=== PATIENT | female | born 1930 | race Caucasian/White ===

== ENCOUNTER 2016-06-16 12:26 | Inpatient (IN) | payer MEDICARE, BC ==
[2016-06-16] MEDS ORDERED: Sodium Chloride 0.9% 10 ML Syringe FLUSH PRN (12:54)
[2016-06-16] MEDS ORDERED: Sodium Chloride 0.9% 1,000 ML IV SCH (13:00)
--- NOTE | 2016-06-16 13:47 | CT ---
Head CT Technique: Multiple axial sections through the brain were obtained. Intravenous contrast was not utilized. Comparison: No previous intracranial imaging. Findings: Ventricles along with basal cisterns and sulci over convexities are moderately prominent. Diminished density noted within the periventricular white matter which is compatible with small vessel ischemic demyelination change. No other abnormal parenchymal densities are seen. No evidence of intracranial hemorrhage. No midline shift or mass effect is seen. Bone window settings were reviewed which shows the visualized sinuses to appear clear. No acute calvarial abnormality is seen. Impression: 1. Senescent change. Nothing acute is identified on noncontrast head CT study. Diagnostic code #1
--- NOTE | 2016-06-16 13:59 | EDM.PDOC ---
ED HPI DIZZINESS - General Chief Complaint: ENT Problem Stated Complaint: [facility] Time Seen by Provider: 06/16/16 12:38 Source of Information: Reports: Patient, EMS, Family Exam Limitations: Reports: No limitations - History of Present Illness INITIAL COMMENTS - FREE TEXT/NARRATIVE: The patient presents by [facility]. The patient's son came to her house this morning and found her still in bed at 10am. She normally is up and active at around 6am. She was a little dizzy and she told her son she just did not feel like getting up. EMS was called and they gave her some zofran. She felt much better by the time she arrived here. She had no complaints when she arrived. She had no fever, chills, cough, congestion, runny nose, chest pain, shortness of breath, abdominal pain, nausea, vomiting or dysuria. She was talking bout how she was helping her son with something this morning and that is not true. Her family is worried. She has dementia and it seems worse. She will try to cover her memory issues up by talking about something else. She is alert and oriented when she is here. Timing/Duration: Reports: Hour(s): Baseline Function: Reports: ambulatory Quality: Reports: vertigo Severity: mild Worsens With: Reports: activity Context, Dizziness: Denies: recent illness, recent infection, recent trauma, recent air travel, drug abuse, alcohol abuse, new medications Associated Symptoms: Denies: off balance Treatments PAVER: Reports: Other (see below) (zofran) - Related Data Allergies/ADRs: Allergies Allergy/AdvReac Type Severity Reaction Status Date / Time No Known Allergies Allergy Verified 06/16/16 12:41 Home Meds: Home Meds Levothyroxine [Synthroid] 75 mcg PO DAILY 02/18/15 [History] Lisinopril [Prinivil] 20 mg PO DAILY 02/18/15 [History] Multivitamin W/Iron, Minerals [Multivitamins with Iron] 1 tab PO DAILY 02/18/15 [History] Simvastatin [Zocor] 40 mg PO DAILY 02/18/15 [History] Past Medical History HEENT History: Reports: Hard of hearing, Impaired vision Other HEENT History: wears eyeglasses, has bilateral hearing aides Cardiovascular History: Reports: High cholesterol, Hypertension C[employer]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: Endocrine/Metabolic History: Reports: Hypothyroidism Hematologic History: Reports: Anemia - Infectious Disease History Infectious Disease History: Reports: Chicken pox Social & Family History - Tobacco Use Smoking Status *Q: Never Smoker Second Hand Smoke Exposure: No - Caffeine Use Caffeine Use: Reports: Coffee - Recreational Drug Use Recreational Drug Use: No ED ROS GENERAL - Review of Systems Review Of Systems: See Below Constitutional: Reports: no symptoms HEENT: Reports: Vertigo Respiratory: Reports: No Symptoms Cardiovascular: Reports: No symptoms Endocrine: Reports: no symptoms GI/Abdominal: Reports: Nausea (Earlier). Denies: Abdominal pain, Vomiting : Reports: no symptoms Musculoskeletal: Reports: no symptoms ED EXAM, DIZZINESS - Physical Exam Exam: See Below Exam Limited By: No limitations General Appearance: alert, no apparent distress Nystagmus: short duration Ears: normal external exam Nose: normal inspection Throat/Mouth: Normal inspection Head Exam: atraumatic, normocephalic Neck: normal inspection Respiratory/Chest: no respiratory distress, lungs clear, normal breath sounds Cardiovascular: regular rate, rhythm, no edema, no murmur GI/Abdominal: soft, non tender, no organomegaly Neurological: alert, no motor/sensory deficits, oriented x 3 Extremities: normal inspection Skin Exam: Warm, Dry EKG INTERPRETATION EKG Date: 06/16/16 Time: 12:54 Rhythm: NSR Rate (beats/min): 89 [place]: LAD-left axis deviation P-wave: present QRS: normal ST-T: normal QT: normal [place]/PQ Interval: 1st degree heart block EKG Interpretation Comments: Q waves in the anterior leads Course - Vital Signs Last Recorded V/S: Last Vital Signs Temp 97.6 F 06/16/16 12:33 Pulse 79 06/16/16 12:33 Resp 24 H 06/16/16 12:33 BP 161/101 H 06/16/16 12:33 Pulse Ox 96 06/16/16 12:33 Orthostatic Blood Pressure [ 182/123 Standing] Orthostatic Blood Pressure [ 165/108 Sitting] Orthostatic Blood Pressure [ 152/105 Supine] - Orders/Labs/Meds Orders: Active Orders 24 hr Category Date Time Status Patient Status [ADT] Routine ADT 06/16/16 14:54 Ordered Cardiac Monitoring [RC] . DIRECTED Care 06/16/16 12:54 Active EKG Documentation Completion [RC] STAT Care 06/16/16 12:55 Active Peripheral IV Care [RC] . DIRECTED Care 06/16/16 12:55 Active CULTURE URINE [RM] Stat Lab 06/16/16 14:31 Uncollected Sodium Chloride 0.9% [Normal Saline] 1,000 ml Med 06/16/16 13:00 Active IV .BOLUS Sodium Chloride 0.9% [Saline Flush] Med 06/16/16 12:54 Active 10 ml FLUSH ASDIRECTED PRN Peripheral IV Insertion Adult [OM.PC] Stat Oth 06/16/16 12:54 Ordered Medication Orders Sodium Chloride (Normal Saline) 1,000 mls @ 1,000 mls/hr IV .BOLUS [place] Last Admin: 06/16/16 13:14 Dose: 1,000 mls/hr Sodium Chloride (Saline Flush) 10 ml FLUSH ASDIRECTED PRN PRN Reason: Keep Vein Open Last Admin: 06/16/16 14:12 Dose: 10 ml Labs: Laboratory Tests 06/16/16 06/16/16 06/16/16 Range/Units 13:18 13:18 13:35 WBC 5.50 (3.98-10.04) K/mm3 RBC 4.79 (3.98-5.22) M/mm3 Hgb 15.5 (11.2-15.7) gm/L Hct 44.2 (34.1-44.9) % MCV 92.3 (79.4-94.8) fl MCH 32.4 H (25.6-32.2) pg MCHC 35.1 (32.2-35.5) g/dl RDW Std Deviation 43.0 (36.4-46.3) fL Plt Count 187 (182-369) K/mm3 MPV 9.7 (9.4-12.3) fl Neut % (Auto) 77.8 H (34.0-71.1) % Lymph % (Auto) 15.5 L (19.3-51.7) % [place] % (Auto) 6.2 (4.7-12.5) % Eos % (Auto) 0 L (0.7-5.8) Baso % (Auto) 0.5 (0.1-1.2) % Neut # (Auto) 4.28 (1.56-6.13) K/mm3 Lymph # (Auto) 0.85 L (1.18-3.74) K/mm3 [place] # (Auto) 0.34 (0.24-0.36) K/mm3 Eos # (Auto) 0.00 L (0.04-0.36) K/mm3 Baso # (Auto) 0.03 (0.01-0.08) K/mm3 Sodium 139 (136-145) mEq/L Potassium 3.6 (3.5-5.1) mEq/L Chloride 105 (98-107) mEq/L Carbon Dioxide 27 (21-32) mEq/L Anion Gap 10.6 (5-15) BUN 10 (7-18) mg/dL Creatinine 0.8 (0.55-1.02) mg/dL Est Cr Clr Drug Dosing 44.40 mL/min Estimated GFR (MDRD) > 60 (>60) mL/min BUN/Creatinine Ratio 12.5 L (14-18) Glucose 140 H (83-115) mg/dL Calcium 9.1 (8.5-10.1) mg/dL Total Bilirubin 0.8 (0.2-1.0) mg/dL AST 23 (15-37) U/L ALT 23 (14-59) U/L Alkaline Phosphatase 74 (46-116) U/L Troponin I 0.069 H* (0.00-0.056) ng/mL Total Protein 6.9 (6.4-8.2) g/dl Albumin 3.6 (3.4-5.0) g/dl Globulin 3.3 gm/dL Albumin/Globulin Ratio 1.1 (1-2) Urine Color Yellow (Yellow) Urine Appearance Clear (Clear) Urine pH 7.5 (5.0-8.0) Ur Specific [place] 1.020 (1.005-1.030) Urine Protein Negative (Negative) Urine Glucose (UA) Negative (Negative) Urine Ketones 1+ H (Negative) Urine Occult Blood Negative (Negative) Urine Nitrite Negative (Negative) Urine Bilirubin Negative (Negative) Urine Urobilinogen 0.2 (0.2-1.0) Ur Leukocyte Esterase Trace H (Negative) Urine RBC 0-5 (0-5) /hpf Urine WBC 0-5 (0-5) /hpf Ur Epithelial Cells Not Reportable Ur Squamous Epith Cells 0-5 (0-5) /hpf Urine Bacteria Many H (FEW) /hpf Urine Mucus Not seen (FEW) /hpf Meds: Medications Generic Name Dose Route Start Last Admin Trade Name Nathan PRN Reason Stop Dose Admin Sodium Chloride 1,000 mls @ 1,000 mls/hr 06/16/16 13:00 06/16/16 13:14 Normal Saline IV 1,000 mls/hr .BOLUS [place] Administration Sodium Chloride 10 ml 06/16/16 12:54 06/16/16 14:12 Saline Flush FLUSH 10 ml ASDIRECTED PRN Administration Keep Vein Open Discontinued Medications Generic Name Dose Route Start Last Admin Trade Name Nathan PRN Reason Stop Dose Admin Aspirin 324 mg 06/16/16 14:08 06/16/16 14:13 Aspirin PO 06/16/16 14:09 324 mg ONETIME ONE Administration - Re-Assessments/Exams Free Text/Narrative Re-Assessment/Exam: 06/16/16 14:04 I ordered an IV NS 1L bolus, EKG, CT of her head, labs and UA. Her CBC was negative. Her glucose was elevated at 140. Her EKG shows a 1st degree heart block with some Q waves in the anterior leads. Her troponin was elevated at 0.069. 06/16/16 14:56 Her UA has some leukocyte esterase and some bacteria but no WBCs and no nitrites. I will culture it. Her Systolic BP went up from 152 to 182 when she stood up and she was very dizzy and nearly fell over. I am concerned about her confusion, elevated troponin and vertigo. I feel she needs to be admitted. I called Dr Weinberg and he agreed to the admission. Departure - Departure Time of Disposition: 15:00 Disposition: Home, Self-Care 01 Condition: good Clinical Impression: Vertigo, Confusion, Elevated troponin Forms: ED Department Discharge - My Orders Last 24 Hours: My Active Orders 06/16/16 12:54 Cardiac Monitoring [RC] . DIRECTED Sodium Chloride 0.9% [Saline Flush] 10 ml FLUSH ASDIRECTED PRN Peripheral IV Insertion Adult [OM.PC] Stat 06/16/16 12:55 EKG Documentation Completion [RC] STAT Peripheral IV Care [RC] . DIRECTED 06/16/16 13:00 Sodium Chloride 0.9% [Normal Saline] 1,000 ml IV .BOLUS 06/16/16 14:31 CULTURE URINE [RM] Stat 06/16/16 14:54 Patient Status [ADT] Routine - Assessment/Plan Last 24 Hours: My Active Orders 06/16/16 12:54 Cardiac Monitoring [RC] . DIRECTED Sodium Chloride 0.9% [Saline Flush] 10 ml FLUSH ASDIRECTED PRN Peripheral IV Insertion Adult [OM.PC] Stat 06/16/16 12:55 EKG Documentation Completion [RC] STAT Peripheral IV Care [RC] . DIRECTED 06/16/16 13:00 Sodium Chloride 0.9% [Normal Saline] 1,000 ml IV .BOLUS 06/16/16 14:31 CULTURE URINE [RM] Stat 06/16/16 14:54 Patient Status [ADT] Routine
[2016-06-16] MEDS ORDERED: Aspirin 81 MG Tab.Chew PO ONE (14:08)
--- NOTE | 2016-06-16 14:52 | PCM.HP ---
H&P History of Present Illness - General Date of Service: 06/16/16 - History of Present Illness Initial Comments - Free Text/Narative: This is a pleasant 86 year old female who lives independently, has a history of hypertension, hyperlipidemia, hypothryoidism, and vertigo, who was brought to the hospital for acute onset of dizziness this am. Pt reports it was vertiginous and occured around 7 am. She fell back asleep until 10 - 11am. She did not recall all of the events such as how long she slept; history was supplemented by family at bedside. PT denies any chest pain, pressure, SOB, or palpitations. She did have nausea and dry heaving with this. In the ER, she was found to be in hypertensive urgency with positive troponins. We were asked to evaluate her for admission. - Related Data Allergies/Adverse Reactions: Allergies Allergy/AdvReac Type Severity Reaction Status Date / Time No Known Allergies Allergy Verified 06/16/16 12:41 Home Medications: Home Meds Levothyroxine [Synthroid] 75 mcg PO DAILY 02/18/15 [History] Lisinopril [Prinivil] 20 mg PO DAILY 02/18/15 [History] Multivitamin W/Iron, Minerals [Multivitamins with Iron] 1 tab PO DAILY 02/18/15 [History] Simvastatin [Zocor] 40 mg PO DAILY 02/18/15 [History] Past Medical History HEENT History: Reports: Hard of hearing, Impaired vision Other HEENT History: wears eyeglasses, has bilateral hearing aides Cardiovascular History: Reports: High cholesterol, Hypertension [employer]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: Endocrine/Metabolic History: Reports: Hypothyroidism Hematologic History: Reports: Anemia - Infectious Disease History Infectious Disease History: Reports: Chicken pox Social & Family History - Family History Endocrine/Metabolic: Reports: Diabetes, type II (mothers side of family) - Tobacco Use Smoking Status *Q: Never Smoker Second Hand Smoke Exposure: No - Caffeine Use Caffeine Use: Reports: Coffee - Recreational Drug Use Recreational Drug Use: No - Living Situation & Occupation Living situation: Reports: other (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 Denies: headaches Pulmonary: Denies: Shortness of Breath, Wheezing, Cough Cardiovascular: Denies: chest pain, palpitations, orthopnea Gastrointestinal: Denies: Abdominal pain, Diarrhea, Hematochezia, Melena, Nausea , Vomiting Genitourinary: Denies: dysuria, frequency, burning Musculoskeletal: Denies: joint pain, muscle pain Skin: Denies: rash, lesions, lumps Psychiatric: Reports: confusion. Denies: depression, anxiety Neurological: Reports: Confusion, Dizziness. Denies: Headache, Numbness, Tingling, Weakness Hematologic/Lymphatic: Denies: easy bleeding, easy bruising Exam - Exam Exam: See Below - Vital Signs Vital Signs: Last Vital Signs Temp 36.4 C 06/16/16 12:33 Pulse 79 06/16/16 12:33 Resp 24 H 06/16/16 12:33 BP 161/101 H 06/16/16 12:33 Pulse Ox 96 06/16/16 12:33 Orthostatic Blood Pressure [ 182/123 Standing] Orthostatic Blood Pressure [ 165/108 Sitting] Orthostatic Blood Pressure [ 152/105 Supine] Weight: 56.245 kg - Exam Physical Exam Comments:: Vitals: as above General: alert and oriented. NAD, until genaro maneuver performed. Pt was subsequently in intractable nausea. Psych: calm and cooperative HEENT: normocephalic, atraumatic. EOMI Cardiac: Normal S1, S2. regular rate. No murmurs rubs, or gallops. No JVD noted. Lungs: CTAB. good air entry bilaterally. Abd: Soft, NT/ND. No HSM noted. Skin: no new visible rashes or purpura noted Neuro: CN 2-12 intact. Strength intact and adequate bilaterally. Cognition and speech are normal. - Patient Data Lab Results last 24 hrs: Laboratory Results - last 24 hr 06/16/16 06/16/16 06/16/16 Range/Units 13:18 13:18 13:35 WBC 5.50 (3.98-10.04) K/mm3 RBC 4.79 (3.98-5.22) M/mm3 Hgb 15.5 (11.2-15.7) gm/L Hct 44.2 (34.1-44.9) % MCV 92.3 (79.4-94.8) fl MCH 32.4 H (25.6-32.2) pg MCHC 35.1 (32.2-35.5) g/dl RDW Std Deviation 43.0 (36.4-46.3) fL Plt Count 187 (182-369) K/mm3 MPV 9.7 (9.4-12.3) fl Neut % (Auto) 77.8 H (34.0-71.1) % Lymph % (Auto) 15.5 L (19.3-51.7) % [place] % (Auto) 6.2 (4.7-12.5) % Eos % (Auto) 0 L (0.7-5.8) Baso % (Auto) 0.5 (0.1-1.2) % Neut # (Auto) 4.28 (1.56-6.13) K/mm3 Lymph # (Auto) 0.85 L (1.18-3.74) K/mm3 [place] # (Auto) 0.34 (0.24-0.36) K/mm3 Eos # (Auto) 0.00 L (0.04-0.36) K/mm3 Baso # (Auto) 0.03 (0.01-0.08) K/mm3 Sodium 139 (136-145) mEq/L Potassium 3.6 (3.5-5.1) mEq/L Chloride 105 (98-107) mEq/L Carbon Dioxide 27 (21-32) mEq/L Anion Gap 10.6 (5-15) BUN 10 (7-18) mg/dL Creatinine 0.8 (0.55-1.02) mg/dL Est Cr Clr Drug Dosing 44.40 mL/min Estimated GFR (MDRD) > 60 (>60) mL/min BUN/Creatinine Ratio 12.5 L (14-18) Glucose 140 H (83-115) mg/dL Calcium 9.1 (8.5-10.1) mg/dL Total Bilirubin 0.8 (0.2-1.0) mg/dL AST 23 (15-37) U/L ALT 23 (14-59) U/L Alkaline Phosphatase 74 (46-116) U/L Troponin I 0.069 H* (0.00-0.056) ng/mL Total Protein 6.9 (6.4-8.2) g/dl Albumin 3.6 (3.4-5.0) g/dl Globulin 3.3 gm/dL Albumin/Globulin Ratio 1.1 (1-2) Urine Color Yellow (Yellow) Urine Appearance Clear (Clear) Urine pH 7.5 (5.0-8.0) Ur Specific [place] 1.020 (1.005-1.030) Urine Protein Negative (Negative) Urine Glucose (UA) Negative (Negative) Urine Ketones 1+ H (Negative) Urine Occult Blood Negative (Negative) Urine Nitrite Negative (Negative) Urine Bilirubin Negative (Negative) Urine Urobilinogen 0.2 (0.2-1.0) Ur Leukocyte Esterase Trace H (Negative) Urine RBC 0-5 (0-5) /hpf Urine WBC 0-5 (0-5) /hpf Ur Epithelial Cells Not Reportable Ur Squamous Epith Cells 0-5 (0-5) /hpf Urine Bacteria Many H (FEW) /hpf Urine Mucus Not seen (FEW) /hpf Result Diagrams: 06/16/16 13:18 06/16/16 13:18 Imaging Impressions last 24 hrs: CT head without any acute intracranial abnormalities noted. EKG INTERPRETATION Rhythm: NSR EKG Interpretation Comments: possible old septal infarct with q waves. *Q Meaningful Use (ADM) - VTE *Q VTE Criteria *Q: - Stroke *Q Stroke Criteria *Q: - AMI *Q AMI Criteria *Q: - Problem List (1) Hypertensive urgency SNOMED Code(s): 023078444 ICD Code: I16.0 - HYPERTENSIVE URGENCY Status: Acute Current Visit: Yes (2) Elevated troponin SNOMED Code(s): 324789364, 186141452 ICD Code: R74.8 - ABNORMAL LEVELS OF OTHER SERUM ENZYMES Status: Acute Current Visit: Yes (3) Vertigo SNOMED Code(s): 500691370 ICD Code: R42 - DIZZINESS AND GIDDINESS Status: Acute Current Visit: Yes Problem List Initiated/Reviewed/Updated: Yes Orders Last 24hrs: Active Orders 24 hr Category Date Time Status Cardiac Monitoring [RC] . DIRECTED Care 06/16/16 12:54 Active EKG Documentation Completion [RC] STAT Care 06/16/16 12:55 Active Peripheral IV Care [RC] . DIRECTED Care 06/16/16 12:55 Active CULTURE URINE [RM] Stat Lab 06/16/16 14:31 Uncollected Sodium Chloride 0.9% [Normal Saline] 1,000 ml Med 06/16/16 13:00 Active IV .BOLUS Sodium Chloride 0.9% [Saline Flush] Med 06/16/16 12:54 Active 10 ml FLUSH ASDIRECTED PRN Peripheral IV Insertion Adult [OM.PC] Stat Oth 06/16/16 12:54 Ordered Medication Orders Sodium Chloride (Normal Saline) 1,000 mls @ 1,000 mls/hr IV .BOLUS [place] Last Admin: 06/16/16 13:14 Dose: 1,000 mls/hr Sodium Chloride (Saline Flush) 10 ml FLUSH ASDIRECTED PRN PRN Reason: Keep Vein Open Last Admin: 06/16/16 14:12 Dose: 10 ml Assessment/Plan Comment:: Acute vertigo. neuro history and exam without any focal deficits. Genaro maneuver exacerbated symptoms with triggering of horizontal nystagmus with positioning. This is BPPV. Will start meclizine PRN, Ativan PRN, Zofran for nausea PRN. Consult PT. Elevated troponins. Denies chest pain. Likely demand ischemia from HTN urgency. HTN urgency due to acute intractable nausea and vertigo. Will treat vertigo as mentioned above and consider hydrlazine PRN for SBP>180. Cont MICHAEL. Chronic medical conditions: HLD - cont statin Hypothyroidism - cont levothyroxine Pt is DNR. DVT prophylaxis with subcutaneous lovenox.
[2016-06-16] MEDS ORDERED: LORazepam 2 MG/ML MDV IVPUSH ONE (15:10)
[2016-06-16] MEDS ORDERED: LORazepam 2 MG/ML MDV ONE (15:14)
[2016-06-16] MEDS ORDERED: Ondansetron 4 MG/2 ML SDV ONE (15:14)
[2016-06-16] MEDS ORDERED: Ondansetron 4 MG/2 ML SDV IVPUSH PRN (15:28)
[2016-06-16] MEDS ORDERED: hydrALAZINE 10 MG Tab PO PRN (15:44)
[2016-06-16] MEDS ORDERED: Acetaminophen 325 MG Tab PO PRN (15:44)
[2016-06-16] MEDS ORDERED: Bisacodyl 5 MG Tab PO PRN (15:44)
[2016-06-16] MEDS ORDERED: LORazepam 2 MG/ML MDV IVPUSH PRN (15:59)
[2016-06-16] MEDS ORDERED: Meclizine 12.5 MG Tab PO PRN (15:59)
[2016-06-16] MEDS: Lisinopril 20 MG Tab PO SCH (16:22)
[2016-06-17] MEDS ORDERED: Levothyroxine 75 MCG Tab PO SCH (06:00)
[2016-06-17] MEDS ORDERED: Multivitamins,Therapeutic Tab PO SCH (09:00)
[2016-06-17] MEDS ORDERED: Enoxaparin 30 MG/0.3 ML Syringe SUBCUT SCH (09:00)
[2016-06-17] MEDS ORDERED: Simvastatin 40 MG Tab PO SCH (09:00)
[2016-06-17] MEDS ORDERED: Enoxaparin 40 MG/0.4 ML Syringe SUBCUT SCH (09:00)
[2016-06-17] MEDS: Lisinopril 20 MG Tab PO SCH (09:31)
--- NOTE | 2016-06-17 10:22 | PCM.DCSUM1 ---
Discharge Summary - Hospital Course Free Text/Narrative:: This is a pleasant 86 year old female who lives independently, has a history of hypertension, hyperlipidemia, hypothryoidism, and vertigo, who was brought to the hospital for acute onset of dizziness this am. Pt reports it was vertiginous and occured around 7 am. She fell back asleep until 10 - 11am. She did not recall all of the events such as how long she slept; history was supplemented by family at bedside. PT denies any chest pain, pressure, SOB, or palpitations. She did have nausea and dry heaving with this. In the ER, she was found to be in hypertensive urgency with positive troponins. We were asked to evaluate her for admission. Acute vertigo. neuro history and exam without any focal deficits. Betzy maneuver exacerbated symptoms with triggering of horizontal nystagmus with positioning. This is BPPV. Evaluated by PT. Vertigo resolved and Pt able to ambulate today. Discharge with PRN meclizine and Zofran. Elevated troponins. Denied chest pain. This is probable demand ischemia from HTN urgency. HTN urgency due to acute intractable nausea and vertigo, resolved. Cont MICHAEL. - Discharge Data Discharge Date: 06/17/16 Discharge Disposition: Home, Self-Care 01 Condition: Good - Discharge Diagnosis/Problem(s) (1) Vertigo SNOMED Code(s): 243780624 ICD Code: R42 - DIZZINESS AND GIDDINESS Status: Acute Current Visit: Yes (2) Hypertensive urgency SNOMED Code(s): 952144248 ICD Code: I16.0 - HYPERTENSIVE URGENCY Status: Acute Current Visit: Yes (3) Elevated troponin SNOMED Code(s): 271136577, 484833619 ICD Code: R74.8 - ABNORMAL LEVELS OF OTHER SERUM ENZYMES Status: Acute Current Visit: Yes - Patient Summary/Data Consults: Consultations 06/16/16 15:43 OT Evaluation and Treatment [CONS] Routine 06/16/16 15:44 PT Evaluation and Treatment [CONS] Routine Recommended Follow-up Testing/Procedures: Routine follow up in 3-5 days. - Patient Instructions Diet: Usual Diet as Tolerated Activity: As Tolerated Notify Provider of: Fever, Increased Pain, Swelling and Redness, Nausea and/or Vomiting - Discharge Plan Prescriptions/Med Rec: Meclizine [Antivert] 12.5 mg PO Q6H PRN #30 tablet PRN Reason: Dizziness Ondansetron [Zofran] 4 mg IVPUSH Q6H PRN #30 vial PRN Reason: Nausea Home Medications: Home Meds Levothyroxine [Synthroid] 75 mcg PO DAILY 02/18/15 [History] Lisinopril [Prinivil] 20 mg PO DAILY 02/18/15 [History] Simvastatin [Zocor] 40 mg PO DAILY 02/18/15 [History] Meclizine [Antivert] 12.5 mg PO Q6H PRN #30 tablet 06/17/16 [Rx] Ondansetron [Zofran] 4 mg IVPUSH Q6H PRN #30 vial 06/17/16 [Rx] Forms: ED Department Discharge Referrals: Chanel Fletcher MD [Primary Care Provider] - - Patient Data Vitals - Most Recent: Last Vital Signs Temp 36.6 C 06/17/16 09:26 Pulse 83 06/17/16 09:26 Resp 16 06/17/16 09:26 BP 135/87 06/17/16 09:31 Pulse Ox 96 06/17/16 09:26 Weight - Most Recent: 55.837 kg I&O - Last 24 hours: Intake & Output 06/16/16 06/17/16 06/17/16 22:59 06:59 14:59 Intake Total 210 100 Output Total 300 Balance 210 -200 Med Orders - Current: Current Medications Acetaminophen (Tylenol) 650 mg PO Q4H PRN PRN Reason: Pain (Mild 1-3)/fever Bisacodyl (Dulcolax) 5 mg PO DAILY PRN PRN Reason: Constipation Enoxaparin Sodium (Lovenox) 40 mg SUBCUT DAILY [facility] Last Admin: 06/17/16 09:29 Dose: 40 mg Hydralazine HCl (Apresoline) 10 mg PO Q6H PRN PRN Reason: systolic BP>180 or diast>100 Levothyroxine Sodium (Levothyroxine) 75 mcg PO ACBREAKFAST [facility] Last Admin: 06/17/16 06:00 Dose: 75 mcg Lisinopril (Prinivil) 20 mg PO DAILY [facility] Last Admin: 06/17/16 09:31 Dose: 20 mg Lorazepam (Ativan) 1 mg IVPUSH Q6H PRN PRN Reason: Dizziness Meclizine HCl (Antivert) 12.5 mg PO Q6H PRN PRN Reason: Dizziness Multivitamins (Thera) 1 each PO DAILY [facility] Last Admin: 06/17/16 09:31 Dose: 1 each Ondansetron HCl (Zofran) 4 mg IVPUSH Q6H PRN PRN Reason: Nausea Last Admin: 06/16/16 15:34 Dose: 4 mg Simvastatin (Zocor) 40 mg PO DAILY [facility] Last Admin: 06/17/16 09:31 Dose: 40 mg Sodium Chloride (Saline Flush) 10 ml FLUSH ASDIRECTED PRN PRN Reason: Keep Vein Open Last Admin: 06/16/16 14:12 Dose: 10 ml Discontinued Medications Aspirin (Aspirin) 324 mg PO ONETIME ONE Stop: 06/16/16 14:09 Last Admin: 06/16/16 14:13 Dose: 324 mg Enoxaparin Sodium (Lovenox) 30 mg SUBCUT DAILY [facility] Sodium Chloride (Normal Saline) 1,000 mls @ 1,000 mls/hr IV .BOLUS [facility] Last Admin: 06/16/16 13:14 Dose: 1,000 mls/hr Lorazepam (Ativan) Confirm Administered Dose 2 mg .ROUTE .STK-MED ONE Stop: 06/16/16 15:15 Last Admin: 06/16/16 15:36 Dose: Not Given Lorazepam (Ativan) 1 mg IVPUSH ONETIME ONE Stop: 06/16/16 15:11 Last Admin: 06/16/16 15:18 Dose: 1 mg Ondansetron HCl (Zofran) Confirm Administered Dose 4 mg .ROUTE .STK-MED ONE Stop: 06/16/16 15:15 Last Admin: 06/16/16 15:35 Dose: Not Given - Exam General: Reports: alert, oriented HEENT: Reports: EOMI Neck: Reports: supple Lungs: Reports: Clear to auscultation Cardiovascular: Reports: Regular Rate, Regular Rhythm *Q Meaningful Use (DIS) - VTE *Q VTE Criteria *Q: - Stroke *Q Stroke Criteria *Q: - AMI *Q AMI Criteria *Q:
[2016-06-17 17:49] VITALS: BP 128/96
== END 2016-06-17 16:17 | disposition home or self-care (01) | DRG 305 ==
LOC: JD.ED 12:26 → JD.MS 14:54
PROVIDERS: ADMIT Internal Medicine; ATTEND Internal Medicine
DX: R42 Dizziness and giddiness (principal); I16.0 Hypertensive urgency; R41.0 Disorientation, unspecified; H81.10 Benign paroxysmal vertigo, unspecified ear; E78.00 Pure hypercholesterolemia, unspecified; R74.8 Abnormal levels of other serum enzymes; F03.90 Unspecified dementia, unspecified severity, without behavioral disturbance, psychotic disturbance, mood disturbance, and anxiety; E78.5 Hyperlipidemia, unspecified; I10 Essential (primary) hypertension; E03.9 Hypothyroidism, unspecified; D64.9 Anemia, unspecified; H91.93 Unspecified hearing loss, bilateral; Z79.899 Other long term (current) drug therapy; Z66 Do not resuscitate
CPT/HCPCS: 36415; 70450; 80053; 81001; 84484; 85025; 87086; 87184; 93005; 96361; 99285; A9270; J7040; J7050; 87088; 94761; 96125-GN; 96360; 96374; 96375; 97116-GP; 97161-GP; 97165-GO; 97535-GO; J1650; J2060; J2405

== ENCOUNTER 2016-11-12 13:23 | Emergency (ER) | payer MEDICARE, BC ==
[2016-11-12 13:49] VITALS: BP 167/105
[2016-11-12] MEDS ORDERED: Sulfamethoxazole/Trimethoprim 800-160 MG Tab PO ONE (15:41)
--- NOTE | 2016-11-12 15:42 | EDM.PDOC ---
ED HPI GENERAL MEDICAL PROBLEM - General Chief Complaint: Abdominal Pain Stated Complaint: ABDOMINAL PAIN Time Seen by Provider: 11/12/16 13:40 Source of Information: Reports: Patient, Family (Daughter), RN Notes Reviewed History Limitations: Reports: Other (Dementia) - History of Present Illness INITIAL COMMENTS - FREE TEXT/NARRATIVE: The patient states that she has had crampy right lower quadrant abdominal pain on and off for weeks. She gets relief if she pushes on the area. She has not identified any other modifiers. No recent nausea, vomiting, constipation, diarrhea, or urinary symptoms. No recent fever. The patient states that she has not had a previous evaluation of this. The patient's PCP is Dr. Fletcher. - Related Data Allergies Allergy/AdvReac Type Severity Reaction Status Date / Time No Known Allergies Allergy Verified 11/12/16 13:49 Home Meds: Home Meds Levothyroxine [Synthroid] 75 mcg PO DAILY 02/18/15 [History] Lisinopril [Prinivil] 20 mg PO DAILY 02/18/15 [History] Simvastatin [Zocor] 40 mg PO DAILY 02/18/15 [History] Sulfamethoxazole/Trimethoprim [Bactrim Ds Tablet] 1 tab PO Q12H #6 tablet [Rx] Past Medical History HEENT History: Reports: Hard of Hearing, Impaired Vision Other HEENT History: wears eyeglasses, has bilateral hearing aides Cardiovascular History: Reports: High Cholesterol, Hypertension Gastrointestinal History: Reports: Hemorrhoids 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: Neurological History: Reports: Alzheimers Disease Endocrine/Metabolic History: Reports: Hypothyroidism Hematologic History: Reports: Anemia - Infectious Disease History Infectious Disease History: Reports: Chicken Pox - Past Surgical History HEENT Surgical History: Reports: Cataract Surgery GI Surgical History: Reports: Other (See Below) (Hemorrhoidectomy) Social & Family History - Family History Family Medical History: Noncontributory Endocrine/Metabolic: Reports: Diabetes, type II - Tobacco Use Smoking Status *Q: Never Smoker Second Hand Smoke Exposure: No - Caffeine Use Caffeine Use: Reports: Coffee Other Caffeine Use: pot a day - Alcohol Use Alcohol Use History: No - Recreational Drug Use Recreational Drug Use: No - Living Situation & Occupation Living situation: Reports: , Alone Occupation: Retired ED ROS GENERAL - Review of Systems Review Of Systems: See Below Constitutional: Reports: No Symptoms HEENT: Reports: No Symptoms Respiratory: Reports: No Symptoms Cardiovascular: Reports: No Symptoms Endocrine: Reports: No Symptoms GI/Abdominal: Reports: Abdominal Pain (RLQ, as per the HPI) : Reports: No Symptoms Musculoskeletal: Reports: No Symptoms Skin: Reports: No Symptoms Neurological: Reports: No Symptoms Psychiatric: Reports: No Symptoms Hematologic/Lymphatic: Reports: No Symptoms Immunologic: Reports: No Symptoms ED EXAM, RENAL/ - Physical Exam Exam: See Below Exam Limited By: No Limitations General Appearance: Alert, WD/WN, No Apparent Distress Eye Exam: Bilateral Eye: Normal Inspection Ears: Normal External Exam, Hearing Grossly Normal Nose: Normal Inspection, No Blood Throat/Mouth: Normal Inspection, Normal Lips, Normal Voice, No Airway Compromise Head: Atraumatic, Normocephalic Neck: Normal Inspection, Full Range of Motion Respiratory/Chest: No Respiratory Distress, Lungs Clear, Normal Breath Sounds, No Accessory Muscle Use Cardiovascular: Normal Peripheral Pulses, Regular Rate, Rhythm, No Gallop, No JVD, No Murmur, No Rub GI/Abdominal: Normal Bowel Sounds, Soft, Non-Tender (even to the RLQ), No Organomegaly, No Distention, No Abnormal Bruit, No Mass (Female) Exam: Deferred Rectal (Female) Exam: Deferred Back Exam: Normal Inspection, Full Range of Motion, NT Extremities: Normal Inspection, Normal Range of Motion, No Pedal Edema, Normal Capillary Refill Neurological: Alert, No Motor/Sensory Deficits Psychiatric: Normal Affect Skin Exam: Warm, Dry, Intact, Normal Color, No Rash Lymphatic: No Adenopathy Course - Vital Signs Last Recorded V/S: Last Vital Signs Temp 36.3 C 11/12/16 13:40 Pulse 70 11/12/16 13:40 Resp 18 11/12/16 13:40 BP 167/105 H 11/12/16 13:40 Pulse Ox 99 11/12/16 13:40 - Orders/Labs/Meds Labs: Laboratory Tests 11/12/16 11/12/16 Range/Units 14:18 15:00 Urine Color Cancelled Yellow Urine Appearance Cancelled Clear Urine pH Cancelled 7.0 Ur Specific [place] Cancelled 1.020 Urine Protein Cancelled Negative Urine Glucose (UA) Cancelled Negative Urine Ketones Cancelled 1+ H Urine Occult Blood Cancelled Trace-intact H Urine Nitrite Cancelled Negative Urine Bilirubin Cancelled Negative Urine Urobilinogen Cancelled 0.2 Ur Leukocyte Esterase Cancelled Trace H Urine RBC Cancelled 5-10 H Urine WBC Cancelled 0-5 Urine WBC Clumps Cancelled Not seen Ur Epithelial Cells Cancelled 0-5 Ur Squamous Epith Cells Cancelled Ur Transition Epith Cell Cancelled Ur Renal Epithelial Cell Cancelled [place] Biurate Crystals Cancelled Calcium Carbonate Cryst Cancelled Calcium Phosphate Cryst Cancelled Calcium Oxalate Crystal Cancelled Leucine Crystals Cancelled Cystine Crystals Cancelled Uric Acid Crystals Cancelled Triple Phos Crystals Cancelled Sodium Urate Crystals Cancelled Tyrosine Crystals Cancelled Other Crystals Cancelled Amorphous Sediment Cancelled Urine Bacteria Cancelled Many H Epithelial Casts Cancelled Fatty Casts Cancelled Hyaline Casts Cancelled Fine Granular Casts Cancelled Coarse Granular Casts Cancelled Waxy Casts Cancelled Broad Casts Cancelled RBC Casts Cancelled WBC Casts Cancelled Urine Mucus Cancelled Not seen Urine Other Cancelled Urine Trichomonas Cancelled Urine Yeast Cancelled Ur Yeast w Hyphae Cancelled Urine Yeast (Budding) Cancelled Ur Oval Fat Bodies Cancelled Urinalysis Comment Cancelled Meds: Medications Discontinued Medications Generic Name Dose Route Start Last Admin Trade Name Nathan PRN Reason Stop Dose Admin Trimethoprim/Sulfamethoxazole 1 tab 11/12/16 15:41 11/12/16 18:11 Septra Ds PO 11/12/16 15:42 1 tab ONETIME ONE Administration Trimethoprim/Sulfamethoxazole Confirm 11/12/16 18:10 11/12/16 18:11 Septra Ds Administered 11/12/16 18:11 Not Given Dose 1 tab .ROUTE .STK-MED ONE - Re-Assessments/Exams Free Text/Narrative Re-Assessment/Exam: 11/12/16 15:42 The patient's urinalysis is abnormal, in that it shows many bacteria, but only 0 -5 WBC's and trace leukocyte esterase. I have ordered a urine culture, and will treat with Bactrim for 3 days. Departure - Departure Time of Disposition: 15:49 Disposition: Home, Self-Care 01 Condition: Good Clinical Impression: UTI (urinary tract infection) - Discharge Information Prescriptions: Sulfamethoxazole/Trimethoprim [Bactrim Ds Tablet] 1 tab PO Q12H #6 tablet Instructions: Urinary Tract Infection, Adult Referrals: Chanel Fletcher MD [Primary Care Provider] - Forms: ED Department Discharge Additional Instructions: You were seen in the emergency room for lower right abdominal pain on and off for the past several weeks. Workup in the emergency room included a urinalysis. Your urinalysis is concerning for a urinary tract infection. You have been started on the antibiotic Bactrim. Take one tablet every 12 hours , starting tomorrow morning, 11/13/2016, as prescribed. Stay adequately hydrated. Follow-up with your PCP, Dr. Fletcher, in 3 days, to check on your urine culture results, to make sure that you are on the correct antibiotic. If any other problems, please do not hesitate to return to the ER.
[2016-11-12] MEDS ORDERED: Sulfamethoxazole/Trimethoprim 800-160 MG Tab ONE (18:10)
== END 2016-11-12 16:06 | disposition home or self-care (01) ==
LOC: JD.ED 13:23
DX: N39.0 Urinary tract infection, site not specified (principal); I10 Essential (primary) hypertension; E78.00 Pure hypercholesterolemia, unspecified; E03.9 Hypothyroidism, unspecified; G30.9 Alzheimer's disease, unspecified; F02.80 Dementia in other diseases classified elsewhere, unspecified severity, without behavioral disturbance, psychotic disturbance, mood disturbance, and anxiety; Z86.2 Personal history of diseases of the blood and blood-forming organs and certain disorders involving the immune mechanism; Z98.49 Cataract extraction status, unspecified eye; Z79.899 Other long term (current) drug therapy
CPT/HCPCS: 81001; 87086; 87088; 87184; 99284; A9270; P9612

== ENCOUNTER 2017-07-03 10:46 | Inpatient (IN) | payer MEDICARE, BC ==
--- NOTE | 2017-07-03 11:47 | EDM.PDOC ---
ED HPI GENERAL MEDICAL PROBLEM - General Chief Complaint: General Stated Complaint: CHILLS/CONFUSION Time Seen by Provider: 07/03/17 11:27 Source of Information: Reports: Patient History Limitations: Reports: No Limitations - History of Present Illness INITIAL COMMENTS - FREE TEXT/NARRATIVE: Patient is a 87-year-old Alzheimer patient who family found him laying on the real in a blanket sweaty with chilled and confused. Patient was more confused than normal and thus prompted evaluation in ED. Family states patient was asking repetitive questions and was not sure where she was at. She had currently rollers in her hair and was unsure who put them in. Patient lives at home by herself with related checkups by family. Family had no time found the patient to be experienced slurred speech, facial droop, and/or one-sided weakness. She's really had no complaints over the weekend. Was at a wedding and consumed small amount of alcohol over the weekend. She is on thyroid, hypertension, high cholesterol medications. They're unaware if patient took all her home medications this morning. She does have a history of TIAs in the past. Patient denies headache, fever, sore throat, vision changes, neck pain, chest pain, shortness of breath, abdominal pain, dysuria, or any additional complaints. She denies pain to her extremities. There is no bruising noted per family. Patient does have a history of UTIs in the past. - Related Data Allergies Allergy/AdvReac Type Severity Reaction Status Date / Time No Known Allergies Allergy Verified 11/12/16 13:49 Home Meds: Home Meds Levothyroxine [Synthroid] 75 mcg PO DAILY 02/18/15 [History] Lisinopril [Prinivil] 20 mg PO DAILY 02/18/15 [History] Past Medical History HEENT History: Reports: Hard of Hearing, Impaired Vision Other HEENT History: wears eyeglasses, has bilateral hearing aides Cardiovascular History: Reports: High Cholesterol, Hypertension Gastrointestinal History: Reports: Hemorrhoids Genitourinary History: Reports: Other (See Below) Other Genitourinary History: hx of leaking urine, not recently 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: Neurological History: Reports: Alzheimers Disease Psychiatric History: Reports: Other (See Below) Other Psychiatric History: forgetfull Endocrine/Metabolic History: Reports: Hypothyroidism Hematologic History: Reports: Anemia - Infectious Disease History Infectious Disease History: Reports: Chicken Pox - Past Surgical History HEENT Surgical History: Reports: Cataract Surgery GI Surgical History: Reports: Other (See Below) Dermatological Surgical History: Reports: None Social & Family History - Family History Family Medical History: Noncontributory Endocrine/Metabolic: Reports: Diabetes, type II - Tobacco Use Smoking Status *Q: Never Smoker Second Hand Smoke Exposure: No - Caffeine Use Caffeine Use: Reports: Coffee Other Caffeine Use: pot a day - Recreational Drug Use Recreational Drug Use: No - Living Situation & Occupation Living situation: Reports: , Alone Occupation: Retired ED ROS GENERAL - Review of Systems Review Of Systems: ROS reveals no pertinent complaints other than HPI. ED EXAM, GENERAL - Physical Exam Exam: See Below Exam Limited By: No Limitations General Appearance: Alert, WD/WN, No Apparent Distress Eye Exam: Bilateral Eye: EOMI, Normal Inspection, Nystagmus (none noted), PERRL Ears: Hearing Grossly Normal Nose: Normal Inspection Throat/Mouth: Normal Inspection, Normal Oropharynx, Normal Voice, No Airway Compromise Head: Atraumatic, Normocephalic Neck: Normal Inspection, Supple, Non-Tender, Full Range of Motion. No: Carotid Bruit, Lymphadenopathy (L), Lymphadenopathy (R) Respiratory/Chest: No Respiratory Distress, Lungs Clear, Normal Breath Sounds, No Accessory Muscle Use, Chest Non-Tender Cardiovascular: Normal Peripheral Pulses, Regular Rate, Rhythm, No Murmur Peripheral Pulses: 3+: Posterior Tibial (L), Posterior Tibial (R), 4+: Radial (L ), Radial (R) GI/Abdominal: Normal Bowel Sounds, Soft, Non-Tender, No Organomegaly, No Distention Back Exam: Normal Inspection Extremities: Normal Inspection, Non-Tender, No Pedal Edema Neurological: Alert, Oriented, CN II-XII Intact, Normal Cognition, No Motor/ Sensory Deficits, Other (Facial droop, slurred speech, difficulty swallowing. No weakness discrepancy study of her lower extremities. Cerebellar functions intact including finger to nose and rapid alternating movements.) Psychiatric: Normal Affect, Normal Mood Skin Exam: Warm, Dry, Intact, Normal Color Course - Vital Signs Last Recorded V/S: Last Vital Signs Temp 98.1 F 07/04/17 07:37 Pulse 63 07/04/17 08:12 Resp 17 04/24/18 07:37 BP 136/72 07/04/17 08:12 Pulse Ox 99 07/04/17 07:37 - Orders/Labs/Meds Orders: Active Orders 24 hr Category Date Time Status UA W/MICROSCOPIC [URIN] Stat Lab 07/03/17 11:53 Ordered Medication Orders Acetaminophen (Tylenol) 650 mg PO Q6H PRN PRN Reason: Pain/Fever Aspirin (Aspirin) 81 mg PO DAILY [facility] Last Admin: 07/04/17 08:11 Dose: 81 mg Carvedilol (Coreg) 3.125 mg PO BID [facility] Last Admin: 07/04/17 08:12 Dose: 3.125 mg Admin: 07/03/17 20:26 Dose: 3.125 mg Admin: 07/03/17 17:52 Dose: 3.125 mg Clopidogrel Bisulfate (Plavix) 75 mg PO DAILY [facility] Last Admin: 07/04/17 08:11 Dose: 75 mg Enoxaparin Sodium (Lovenox) 60 mg SUBCUT BID [facility] Hydralazine HCl (Apresoline) 20 mg IVPUSH Q6H PRN PRN Reason: Hypertension Lactated Ringer's (Ringers, Lactated) 1,000 mls @ 75 mls/hr IV ASDIRECTED [facility] Stop: 07/04/17 11:00 Last Admin: 07/04/17 05:06 Dose: 75 mls/hr Levothyroxine Sodium (Levothyroxine) 75 mcg PO ACBRK [facility] Last Admin: 07/04/17 05:06 Dose: 75 mcg Simvastatin (Zocor) 10 mg PO BEDTIME [facility] Last Admin: 07/03/17 20:27 Dose: 10 mg Temazepam (Restoril) 7.5 mg PO BEDTIME PRN PRN Reason: Insomnia Labs: Laboratory Tests 07/03/17 07/03/17 07/03/17 Range/Units 11:53 12:01 12:01 WBC 8.76 (3.98-10.04) K/mm3 RBC 4.64 (3.98-5.22) M/mm3 Hgb 14.7 (11.2-15.7) gm/L Hct 42.6 (34.1-44.9) % MCV 91.8 (79.4-94.8) fl MCH 31.7 (25.6-32.2) pg MCHC 34.5 (32.2-35.5) g/dl RDW Std Deviation 45.1 (36.4-46.3) fL Plt Count 208 (182-369) K/mm3 MPV 9.5 (9.4-12.3) fl Neutrophils % (Manual) 83 H (40-60) % Band Neutrophils % 0 (0-10) % Lymphocytes % (Manual) 10 L (20-40) % Atypical Lymphs % 0 % Monocytes % (Manual) 7 (2-10) % Eosinophils % (Manual) 0 L (0.7-5.8) % Basophils % (Manual) 0 L (0.1-1.2) Platelet Estimate Adequate RBC Morph Comment Normal PT (9.5-12.1) SECONDS INR APTT (24-31) SECONDS Sodium 138 (136-145) mEq/L Potassium 3.7 (3.5-5.1) mEq/L Chloride 105 (98-107) mEq/L Carbon Dioxide 26 (21-32) mEq/L Anion Gap 10.7 (5-15) BUN 15 (7-18) mg/dL Creatinine 1.1 H (0.55-1.02) mg/dL Est Cr Clr Drug Dosing 32.33 mL/min Estimated GFR (MDRD) 47 (>60) mL/min BUN/Creatinine Ratio 13.6 L (14-18) Glucose 99 (83-115) mg/dL Calcium 9.5 (8.5-10.1) mg/dL Total Bilirubin 1.1 H (0.2-1.0) mg/dL AST 20 (15-37) U/L ALT 14 (14-59) U/L Alkaline Phosphatase 68 (46-116) U/L Troponin I (0.00-0.056) ng/mL C-Reactive Protein < 0.2 (<1.0) mg/dL Total Protein 6.9 (6.4-8.2) g/dl Albumin 3.7 (3.4-5.0) g/dl Globulin 3.2 gm/dL Albumin/Globulin Ratio 1.2 (1-2) TSH 3rd Generation 1.444 (0.358-3.74) uIU/mL Urine Color Yellow (Yellow) Urine Appearance Clear (Clear) Urine pH 7.0 (5.0-8.0) Ur Specific [place] 1.020 (1.005-1.030) Urine Protein 2+ H (Negative) Urine Glucose (UA) Negative (Negative) Urine Ketones Trace H (Negative) Urine Occult Blood Trace-intact H (Negative) Urine Nitrite Negative (Negative) Urine Bilirubin Negative (Negative) Urine Urobilinogen 0.2 (0.2-1.0) Ur Leukocyte Esterase Negative (Negative) Urine RBC 0-5 (0-5) /hpf Urine WBC 0-5 (0-5) /hpf Ur Epithelial Cells 0-5 (0-5) /hpf Urine Bacteria Few (FEW) /hpf Hyaline Casts 0-5 (0-5) /lpf Fine Granular Casts 0-5 (0-5) /lpf Urine Mucus Few (FEW) /hpf 07/03/17 07/03/17 07/03/17 Range/Units 12:01 12:01 15:15 WBC (3.98-10.04) K/mm3 RBC (3.98-5.22) M/mm3 Hgb (11.2-15.7) gm/L Hct (34.1-44.9) % MCV (79.4-94.8) fl MCH (25.6-32.2) pg MCHC (32.2-35.5) g/dl RDW Std Deviation (36.4-46.3) fL Plt Count (182-369) K/mm3 MPV (9.4-12.3) fl Neutrophils % (Manual) (40-60) % Band Neutrophils % (0-10) % Lymphocytes % (Manual) (20-40) % Atypical Lymphs % % Monocytes % (Manual) (2-10) % Eosinophils % (Manual) (0.7-5.8) % Basophils % (Manual) (0.1-1.2) Platelet Estimate RBC Morph Comment PT 11.7 (9.5-12.1) SECONDS INR 1.07 APTT 27 (24-31) SECONDS Sodium (136-145) mEq/L Potassium (3.5-5.1) mEq/L Chloride (98-107) mEq/L Carbon Dioxide (21-32) mEq/L Anion Gap (5-15) BUN (7-18) mg/dL Creatinine (0.55-1.02) mg/dL Est Cr Clr Drug Dosing mL/min Estimated GFR (MDRD) (>60) mL/min BUN/Creatinine Ratio (14-18) Glucose (83-115) mg/dL Calcium (8.5-10.1) mg/dL Total Bilirubin (0.2-1.0) mg/dL AST (15-37) U/L ALT (14-59) U/L Alkaline Phosphatase (46-116) U/L Troponin I 0.072 H* 0.075 H* (0.00-0.056) ng/mL C-Reactive Protein (<1.0) mg/dL Total Protein (6.4-8.2) g/dl Albumin (3.4-5.0) g/dl Globulin gm/dL Albumin/Globulin Ratio (1-2) TSH 3rd Generation (0.358-3.74) uIU/mL Urine Color (Yellow) Urine Appearance (Clear) Urine pH (5.0-8.0) Ur Specific [place] (1.005-1.030) Urine Protein (Negative) Urine Glucose (UA) (Negative) Urine Ketones (Negative) Urine Occult Blood (Negative) Urine Nitrite (Negative) Urine Bilirubin (Negative) Urine Urobilinogen (0.2-1.0) Ur Leukocyte Esterase (Negative) Urine RBC (0-5) /hpf Urine WBC (0-5) /hpf Ur Epithelial Cells (0-5) /hpf Urine Bacteria (FEW) /hpf Hyaline Casts (0-5) /lpf Fine Granular Casts (0-5) /lpf Urine Mucus (FEW) /hpf Meds: Medications Generic Name Dose Route Start Last Admin Trade Name Freq PRN Reason Stop Dose Admin Acetaminophen 650 mg 07/03/17 16:56 Tylenol PO Q6H PRN Pain/Fever Aspirin 81 mg 07/04/17 09:00 07/04/17 08:11 Aspirin PO 81 mg DAILY [facility] Administration Carvedilol 3.125 mg 07/03/17 16:45 07/04/17 08:12 Coreg PO 3.125 mg BID [facility] Administration Clopidogrel Bisulfate 75 mg 07/04/17 09:00 07/04/17 08:11 Plavix PO 75 mg DAILY [facility] Administration Enoxaparin Sodium 60 mg 07/04/17 21:00 Lovenox SUBCUT BID [facility] Hydralazine HCl 20 mg 07/03/17 16:40 Apresoline IVPUSH Q6H PRN Hypertension Lactated Ringer's 1,000 mls @ 75 mls/hr 07/04/17 05:00 07/04/17 05:06 Ringers, Lactated IV 07/04/17 11:00 75 mls/hr ASDIRECTED [facility] Administration Levothyroxine Sodium 75 mcg 07/04/17 06:00 07/04/17 05:06 Levothyroxine PO 75 mcg ACBRK [facility] Administration Simvastatin 10 mg 07/03/17 21:00 07/03/17 20:27 Zocor PO 10 mg BEDTIME [facility] Administration Temazepam 7.5 mg 07/03/17 16:56 Restoril PO BEDTIME PRN Insomnia Discontinued Medications Generic Name Dose Route Start Last Admin Trade Name Freq PRN Reason Stop Dose Admin Aspirin 324 mg 07/03/17 14:32 07/03/17 14:53 Aspirin PO 07/03/17 14:33 324 mg ONETIME ONE Administration Aspirin Confirm 07/03/17 14:59 07/03/17 15:59 Aspirin Administered 07/03/17 15:00 Not Given Dose 81 mg .ROUTE .STK-MED ONE Clopidogrel Bisulfate 300 mg 07/03/17 16:39 07/03/17 17:54 Plavix PO 07/03/17 16:40 300 mg ONETIME ONE Administration Clopidogrel Bisulfate 300 mg 07/03/17 18:00 07/03/17 18:04 Plavix PO 07/03/17 18:01 Not Given ONETIME ONE Enoxaparin Sodium 60 mg 07/03/17 16:45 07/04/17 08:12 Lovenox SUBCUT 60 mg DAILY [facility] Administration Lactated Ringer's 1,000 mls @ 75 mls/hr 07/03/17 16:45 Ringers, Lactated IV 07/03/17 16:46 ASDIRECTED [facility] - Re-Assessments/Exams Free Text/Narrative Re-Assessment/Exam: Will obtain basic labs including CBC, chem 14, CRP, UA, and TSh. Patient has history of UTI's in the past with similar symptoms of chills, sweating, and mild intermittent confusion. She has no findings concerning for stroke and offers no complaints at this time. She is alert and oriented x 3.She is acting normal to family present. 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 EKG: First degree AV block and a rate of 74, Q waves leads V1 and V2 and near Q waves in V3 old anterior septal MT, decreased voltage limb leads. Occasional PVC. LAD -33. QTs is mildly prolonged. 07/03/17 13:15 On reexamination patient has just returned to the room from CT of the head. Patient does not remember who took her curlers out. Other family members have arrived at bedside and states this is her baseline. Patients mentation has unchanged from initial examination. Suspect patients confusion this morning was her baseline. I have ordered troponin and coag studies. CT of the head: Senescent change as noted above.Nothing acute is appreciated on noncontrast head CT Study. Findings are fairly stable from previous exam. 1410 Troponin pending. 07/03/17 14:31 Troponin is 0.072. Ordered aspirin 324 mg by mouth. Discussed results of the trunk troponin with family. They will speak to the power of newspaper peddler and make a decision. 1440 Family has opted to admit the patient here in [place]. They do not request transfer to [place] for Cardiology Consultation. Code status per family is DNR. 07/03/17 14:[address] Campbell accreditation coordinator Hospitalists. She will see the patient in the E.D. Ordered 2nd troponin. This will be 3 hrs from previously blood draw. 07/03/17 15:02 Dr. Campbell has arrived. I have discussed the patient with her. She has accepted the patient. Requests Med Surg with Tele. Prior to admission with have social work therapist speak with family. Patient does reside at home by herself with close monitoring by family. Second troponin came back at 0.075. Departure - Departure Time of Disposition: 14:57 Disposition: Admitted As Inpatient 67 Clinical Impression: NSTEMI (non-ST elevated myocardial infarction), Chills Protein in urine Qualifiers: Proteinuria type: unspecified Qualified Code(s): R80.9 - Proteinuria, unspecified Hematuria Qualifiers: Hematuria type: other microscopic Qualified Code(s): R31.29 - Other microscopic hematuria Alzheimer disease Qualifiers: Alzheimer's disease onset: unspecified onset Dementia behavioral disturbance: without behavioral disturbance Qualified Code(s): G30.9 - Alzheimer's disease, unspecified - Discharge Information - My Orders Last 24 Hours: My Active Orders 07/03/17 11:53 UA W/MICROSCOPIC [URIN] Stat - Assessment/Plan Last 24 Hours: My Active Orders 07/03/17 11:53 UA W/MICROSCOPIC [URIN] Stat
--- NOTE | 2017-07-03 13:27 | CT ---
Head CT Technique: Multiple axial sections through the brain were obtained. Intravenous contrast was not utilized. Comparison: Prior head CT exam of 06/16/16. Findings: Ventricles along with basal cisterns and sulci over the convexities are moderately prominent. Diminished density is noted within the periventricular and subcortical white matter which is compatible with small vessel ischemic demyelination change. No abnormal parenchymal densities are otherwise seen. No evidence of intracranial hemorrhage. No midline shift or mass effect is seen. Bone window settings were reviewed which shows no acute calvarial abnormality. Visualized sinuses are clear. Impression: 1. Senescent change as noted above. Nothing acute is appreciated on noncontrast head CT study. Findings are fairly stable from previous exam. Diagnostic code #2
[2017-07-03] MEDS ORDERED: Aspirin 81 MG Tab.Chew PO ONE (14:32)
[2017-07-03] MEDS ORDERED: Aspirin 81 MG Tab.Chew ONE (14:59)
--- NOTE | 2017-07-03 16:38 | PCM.HP ---
H&P History of Present Illness - General Date of Service: 07/03/17 Admit Problem/Dx: Admission Diagnosis/Problem Admission Diagnosis/Problem NSTEMI, initial episode of care Source of Information: Family, Provider History Limitations: Reports: No Limitations - History of Present Illness Initial Comments - Free Text/Narative: 87 year old active female who remains on an active farm was found by her family confused. She apparently did not remember when or how she ended up on the sofa. She denies LOC, syncopal, pre-syncopal episodes as well as CP, SOB, N/V, F/C. When questioned by family members in her living room she was confused, and could not remember how she got on the sofa. There was no slurred speech, facial droop or unsteady gait. The patient was confused without additional complaints. PMH: Alzheimers dementia; TIA; hypertension. Laboratory studies document a Non STEMI; the patient will be admitted to obs with telemetry. She is a full code and wants medical management only. Onset of Symptoms: Reports: Unknown/Unsure Symptom Onset Date: 07/03/17 Duration of Symptoms: Reports: Hour(s):, Getting Worse Severity: Moderate Improves with: Reports: Medication Worsens with: Reports: None - Related Data Allergies/Adverse Reactions: Allergies Allergy/AdvReac Type Severity Reaction Status Date / Time No Known Allergies Allergy Verified 11/12/16 13:49 Home Medications: Home Meds Levothyroxine [Synthroid] 75 mcg PO DAILY 02/18/15 [History] Lisinopril [Prinivil] 20 mg PO DAILY 02/18/15 [History] Past Medical History HEENT History: Reports: Hard of Hearing, Impaired Vision Other HEENT History: wears eyeglasses, has bilateral hearing aides Cardiovascular History: Reports: High Cholesterol, Hypertension Respiratory History: Reports: None Gastrointestinal History: Reports: Hemorrhoids Genitourinary History: Reports: Other (See Below) Other Genitourinary History: hx of leaking urine--resolved [employer] [facility] History: Reports: Musculoskeletal History: Reports: None Neurological History: Reports: Vertigo, Other (See Below) Other Neuro History: memory deficits Psychiatric History: Reports: Other (See Below) Other Psychiatric History: forgetfull Endocrine/Metabolic History: Reports: Hypothyroidism Hematologic History: Reports: Anemia Dermatologic History: Reports: None - Infectious Disease History Infectious Disease History: Reports: Chicken Pox, Measles, Mumps, Rubella - Past Surgical History HEENT Surgical History: Reports: Cataract Surgery Cardiovascular Surgical History: Reports: None GI Surgical History: Reports: None Female Surgical History: Reports: None Neurological Surgical History: Reports: None Musculoskeletal Surgical History: Reports: None Dermatological Surgical History: Reports: None Social & Family History - Family History Family Medical History: Noncontributory Endocrine/Metabolic: Reports: Diabetes, type II - Tobacco Use Smoking Status *Q: Never Smoker Second Hand Smoke Exposure: No - Caffeine Use Caffeine Use: Reports: Coffee Other Caffeine Use: pot a day - Recreational Drug Use Recreational Drug Use: No - Living Situation & Occupation Living situation: Reports: , Alone Occupation: Retired H&P Review of Systems - Review of Systems: Review Of Systems: See Below General: Reports: Weakness HEENT: Reports: No Symptoms Pulmonary: Reports: No Symptoms Cardiovascular: Reports: No Symptoms Gastrointestinal: Reports: No Symptoms Genitourinary: Reports: No Symptoms Musculoskeletal: Reports: No Symptoms Skin: Reports: No Symptoms Psychiatric: Reports: No Symptoms Neurological: Reports: No Symptoms Hematologic/Lymphatic: Reports: No Symptoms Immunologic: Reports: No Symptoms Exam - Exam Exam: See Below - Vital Signs Vital Signs: Last Vital Signs Temp 36.9 C 07/03/17 10:56 Pulse 74 07/03/17 10:56 Resp 18 07/03/17 10:56 BP 154/91 H 07/03/17 10:56 Pulse Ox 98 07/03/17 10:56 Weight: 56.563 kg - Exam General: Alert, Oriented, Cooperative HEENT: Conjunctiva Clear, EOMI, Nares Patent, Normal Nasal Septum, Pupils Equal , Pupils Reactive, PERRLA Neck: Trachea Midline Lungs: Clear to Auscultation, Normal Respiratory Effort Cardiovascular: Regular Rate, Regular Rhythm GI/Abdominal Exam: Normal Bowel Sounds, Soft, Non-Tender, No Organomegaly, No Distention (Female) Exam: Deferred Rectal (Female) Exam: Deferred Back Exam: Normal Inspection Extremities: Normal Inspection, Non-Tender, Normal Capillary Refill Skin: Warm Neurological: Cranial Nerves Intact Neuro Extensive - Mental Status: Alert, Normal Mood/Affect, Normal Cognition, Memory Intact Neuro Extensive - Motor, Sensory, Reflexes: CN II-XII Intact Psychiatric: Alert, Normal Affect, Normal Mood - Patient Data Lab Results Last 24 hrs: Laboratory Results - last 24 hr 07/03/17 07/03/17 07/03/17 Range/Units 11:53 12:01 12:01 WBC 8.76 (3.98-10.04) K/mm3 RBC 4.64 (3.98-5.22) M/mm3 Hgb 14.7 (11.2-15.7) gm/L Hct 42.6 (34.1-44.9) % MCV 91.8 (79.4-94.8) fl MCH 31.7 (25.6-32.2) pg MCHC 34.5 (32.2-35.5) g/dl RDW Std Deviation 45.1 (36.4-46.3) fL Plt Count 208 (182-369) K/mm3 MPV 9.5 (9.4-12.3) fl Neutrophils % (Manual) 83 H (40-60) % Band Neutrophils % 0 (0-10) % Lymphocytes % (Manual) 10 L (20-40) % Atypical Lymphs % 0 % Monocytes % (Manual) 7 (2-10) % Eosinophils % (Manual) 0 L (0.7-5.8) % Basophils % (Manual) 0 L (0.1-1.2) Platelet Estimate Adequate RBC Morph Comment Normal PT (9.5-12.1) SECONDS INR APTT (24-31) SECONDS Sodium 138 (136-145) mEq/L Potassium 3.7 (3.5-5.1) mEq/L Chloride 105 (98-107) mEq/L Carbon Dioxide 26 (21-32) mEq/L Anion Gap 10.7 (5-15) BUN 15 (7-18) mg/dL Creatinine 1.1 H (0.55-1.02) mg/dL Est Cr Clr Drug Dosing 32.33 mL/min Estimated GFR (MDRD) 47 (>60) mL/min BUN/Creatinine Ratio 13.6 L (14-18) Glucose 99 (83-115) mg/dL Calcium 9.5 (8.5-10.1) mg/dL Total Bilirubin 1.1 H (0.2-1.0) mg/dL AST 20 (15-37) U/L ALT 14 (14-59) U/L Alkaline Phosphatase 68 (46-116) U/L Troponin I (0.00-0.056) ng/mL C-Reactive Protein < 0.2 (<1.0) mg/dL Total Protein 6.9 (6.4-8.2) g/dl Albumin 3.7 (3.4-5.0) g/dl Globulin 3.2 gm/dL Albumin/Globulin Ratio 1.2 (1-2) TSH 3rd Generation 1.444 (0.358-3.74) uIU/mL Urine Color Yellow (Yellow) Urine Appearance Clear (Clear) Urine pH 7.0 (5.0-8.0) Ur Specific [place] 1.020 (1.005-1.030) Urine Protein 2+ H (Negative) Urine Glucose (UA) Negative (Negative) Urine Ketones Trace H (Negative) Urine Occult Blood Trace-intact H (Negative) Urine Nitrite Negative (Negative) Urine Bilirubin Negative (Negative) Urine Urobilinogen 0.2 (0.2-1.0) Ur Leukocyte Esterase Negative (Negative) Urine RBC 0-5 (0-5) /hpf Urine WBC 0-5 (0-5) /hpf Ur Epithelial Cells 0-5 (0-5) /hpf Urine Bacteria Few (FEW) /hpf Hyaline Casts 0-5 (0-5) /lpf Fine Granular Casts 0-5 (0-5) /lpf Urine Mucus Few (FEW) /hpf 07/03/17 07/03/17 07/03/17 Range/Units 12:01 12:01 15:15 WBC (3.98-10.04) K/mm3 RBC (3.98-5.22) M/mm3 Hgb (11.2-15.7) gm/L Hct (34.1-44.9) % MCV (79.4-94.8) fl MCH (25.6-32.2) pg MCHC (32.2-35.5) g/dl RDW Std Deviation (36.4-46.3) fL Plt Count (182-369) K/mm3 MPV (9.4-12.3) fl Neutrophils % (Manual) (40-60) % Band Neutrophils % (0-10) % Lymphocytes % (Manual) (20-40) % Atypical Lymphs % % Monocytes % (Manual) (2-10) % Eosinophils % (Manual) (0.7-5.8) % Basophils % (Manual) (0.1-1.2) Platelet Estimate RBC Morph Comment PT 11.7 (9.5-12.1) SECONDS INR 1.07 APTT 27 (24-31) SECONDS Sodium (136-145) mEq/L Potassium (3.5-5.1) mEq/L Chloride (98-107) mEq/L Carbon Dioxide (21-32) mEq/L Anion Gap (5-15) BUN (7-18) mg/dL Creatinine (0.55-1.02) mg/dL Est Cr Clr Drug Dosing mL/min Estimated GFR (MDRD) (>60) mL/min BUN/Creatinine Ratio (14-18) Glucose (83-115) mg/dL Calcium (8.5-10.1) mg/dL Total Bilirubin (0.2-1.0) mg/dL AST (15-37) U/L ALT (14-59) U/L Alkaline Phosphatase (46-116) U/L Troponin I 0.072 H* 0.075 H* (0.00-0.056) ng/mL C-Reactive Protein (<1.0) mg/dL Total Protein (6.4-8.2) g/dl Albumin (3.4-5.0) g/dl Globulin gm/dL Albumin/Globulin Ratio (1-2) TSH 3rd Generation (0.358-3.74) uIU/mL Urine Color (Yellow) Urine Appearance (Clear) Urine pH (5.0-8.0) Ur Specific [place] (1.005-1.030) Urine Protein (Negative) Urine Glucose (UA) (Negative) Urine Ketones (Negative) Urine Occult Blood (Negative) Urine Nitrite (Negative) Urine Bilirubin (Negative) Urine Urobilinogen (0.2-1.0) Ur Leukocyte Esterase (Negative) Urine RBC (0-5) /hpf Urine WBC (0-5) /hpf Ur Epithelial Cells (0-5) /hpf Urine Bacteria (FEW) /hpf Hyaline Casts (0-5) /lpf Fine Granular Casts (0-5) /lpf Urine Mucus (FEW) /hpf Result Diagrams: 07/04/17 06:17 07/04/17 06:17 - Problem List (1) Hypothyroid SNOMED Code(s): 37472570 ICD Code: E03.9 - HYPOTHYROIDISM, UNSPECIFIED Status: Acute Current Visit : Yes (2) Alzheimer disease SNOMED Code(s): 41991015 ICD Code: G30.9 - ALZHEIMER'S DISEASE, UNSPECIFIED; F02.80 - DEMENTIA IN OTH DISEASES CLASSD ELSWHR W/O BEHAVRL DISTURB Status: Acute Current Visit: Yes Qualifiers: Alzheimer's disease onset: unspecified onset Dementia behavioral disturbance: without behavioral disturbance Qualified Code(s): G30.9 - Alzheimer's disease, unspecified; F02.80 - Dementia in other diseases classified elsewhere without behavioral disturbance (3) NSTEMI (non-ST elevated myocardial infarction) SNOMED Code(s): 063420597 ICD Code: I21.4 - NON-ST ELEVATION (NSTEMI) MYOCARDIAL INFARCTION Status: Acute Current Visit: Yes (4) Protein in urine SNOMED Code(s): 26181290 ICD Code: R80.9 - PROTEINURIA, UNSPECIFIED Status: Acute Current Visit: Yes Qualifiers: Proteinuria type: unspecified Qualified Code(s): R80.9 - Proteinuria, unspecified (5) Elevated troponin SNOMED Code(s): 881360119, 696592326, 397803656 ICD Code: R74.8 - ABNORMAL LEVELS OF OTHER SERUM ENZYMES Status: Acute Current Visit: No (6) UTI (urinary tract infection) SNOMED Code(s): 17265423 ICD Code: N39.0 - URINARY TRACT INFECTION, SITE NOT SPECIFIED Status: Acute Current Visit: No Problem List Initiated/Reviewed/Updated: Yes Orders Last 24hrs: Active Orders 24 hr Category Date Time Status Admission Status [Patient Status] [ADT] Routine ADT 07/03/17 15:41 Active UA W/MICROSCOPIC [URIN] Stat Lab 07/03/17 11:53 Ordered Resuscitation Status Routine Resus Stat 07/03/17 16:27 Ordered Assessment/Plan Comment:: Impression: Acute confusion--resolved History of Alzheimers Dementia ACS/NonSTEMI requesting medical management only. Hypothyroidism on replacement therapy Plan: IVF HTN meds Ischemic protocol Lovenox renal dose Plavix load, then 75 mg daily 2 D echo PCP/Card follow up 1-2 weeks DVT/GI prophylaxis Consult CM/PT/OT DC 24-48 hours.
[2017-07-03] MEDS ORDERED: Clopidogrel 75 MG Tab PO ONE ×2 (16:39→18:00)
[2017-07-03] MEDS ORDERED: Lactated Ringers 1,000 ML IV SCH (16:45)
[2017-07-03] MEDS ORDERED: Temazepam 7.5 MG Cap PO PRN (16:56)
[2017-07-03] MEDS: Carvedilol 3.125 MG Tab PO SCH ×2 (17:52→20:26)
[2017-07-03] MEDS: Enoxaparin 60 MG/0.6 ML Syringe SUBCUT SCH (17:54)
[2017-07-03] MEDS: Simvastatin 10 MG Tab PO SCH (20:27)
[2017-07-03] MEDS ORDERED: Simvastatin 10 MG Tab PO SCH (21:00)
[2017-07-04] MEDS ORDERED: Lactated Ringers 1,000 ML IV SCH (05:00)
[2017-07-04] MEDS: Levothyroxine 75 MCG Tab PO SCH (05:06)
[2017-07-04] MEDS: Clopidogrel 75 MG Tab PO SCH (08:11)
[2017-07-04] MEDS: Aspirin 81 MG Tab.Chew PO SCH (08:11)
[2017-07-04] MEDS: Enoxaparin 60 MG/0.6 ML Syringe SUBCUT SCH ×2 (08:12→20:48)
[2017-07-04] MEDS: Carvedilol 3.125 MG Tab PO SCH ×2 (08:12→20:48)
--- NOTE | 2017-07-04 11:00 | PCM.PN ---
- General Info Date of Service: 07/04/17 Functional Status: Reports: Tolerating Diet, Ambulating, Urinating - Review of Systems General: Reports: No Symptoms HEENT: Reports: No Symptoms Pulmonary: Reports: No Symptoms Cardiovascular: Reports: No Symptoms Gastrointestinal: Reports: No Symptoms Genitourinary: Reports: No Symptoms Musculoskeletal: Reports: No Symptoms Skin: Reports: No Symptoms Neurological: Reports: No Symptoms Psychiatric: Reports: No Symptoms - Patient Data Vitals - Most Recent: Last Vital Signs Temp 36.7 C 07/04/17 07:37 Pulse 63 07/04/17 08:12 Resp 17 07/04/17 07:37 BP 136/72 07/04/17 08:12 Pulse Ox 99 07/04/17 07:37 Weight - Most Recent: 55.792 kg I&O - Last 24 Hours: Intake & Output 07/03/17 07/04/17 07/04/17 22:59 06:59 14:59 Intake Total 180 300 180 Output Total 300 Balance 180 0 180 Lab Results Last 24 Hours: Laboratory Results - last 24 hr 07/03/17 07/03/17 07/03/17 Range/Units 11:53 12:01 12:01 WBC 8.76 (3.98-10.04) K/mm3 RBC 4.64 (3.98-5.22) M/mm3 Hgb 14.7 (11.2-15.7) gm/L Hct 42.6 (34.1-44.9) % MCV 91.8 (79.4-94.8) fl MCH 31.7 (25.6-32.2) pg MCHC 34.5 (32.2-35.5) g/dl RDW Std Deviation 45.1 (36.4-46.3) fL Plt Count 208 (182-369) K/mm3 MPV 9.5 (9.4-12.3) fl Neut % (Auto) (34.0-71.1) % Lymph % (Auto) (19.3-51.7) % [place] % (Auto) (4.7-12.5) % Eos % (Auto) (0.7-5.8) Baso % (Auto) (0.1-1.2) % Neut # (Auto) (1.56-6.13) K/mm3 Lymph # (Auto) (1.18-3.74) K/mm3 [place] # (Auto) (0.24-0.36) K/mm3 Eos # (Auto) (0.04-0.36) K/mm3 Baso # (Auto) (0.01-0.08) K/mm3 Neutrophils % (Manual) 83 H (40-60) % Band Neutrophils % 0 (0-10) % Lymphocytes % (Manual) 10 L (20-40) % Atypical Lymphs % 0 % Monocytes % (Manual) 7 (2-10) % Eosinophils % (Manual) 0 L (0.7-5.8) % Basophils % (Manual) 0 L (0.1-1.2) Platelet Estimate Adequate RBC Morph Comment Normal PT (9.5-12.1) SECONDS INR APTT (24-31) SECONDS Sodium 138 (136-145) mEq/L Potassium 3.7 (3.5-5.1) mEq/L Chloride 105 (98-107) mEq/L Carbon Dioxide 26 (21-32) mEq/L Anion Gap 10.7 (5-15) BUN 15 (7-18) mg/dL Creatinine 1.1 H (0.55-1.02) mg/dL Est Cr Clr Drug Dosing 32.33 mL/min Estimated GFR (MDRD) 47 (>60) mL/min BUN/Creatinine Ratio 13.6 L (14-18) Glucose 99 (83-115) mg/dL Calcium 9.5 (8.5-10.1) mg/dL Magnesium (1.8-2.4) mg/dl Total Bilirubin 1.1 H (0.2-1.0) mg/dL AST 20 (15-37) U/L ALT 14 (14-59) U/L Alkaline Phosphatase 68 (46-116) U/L Troponin I (0.00-0.056) ng/mL C-Reactive Protein < 0.2 (<1.0) mg/dL NT-Pro-B Natriuret Pep (0-450) pg/mL Total Protein 6.9 (6.4-8.2) g/dl Albumin 3.7 (3.4-5.0) g/dl Globulin 3.2 gm/dL Albumin/Globulin Ratio 1.2 (1-2) Triglycerides (<150) mg/dL Cholesterol (<200) mg/dL LDL Cholesterol Direct (<100) mg/dL HDL Cholesterol (40-59) mg/dL TSH 3rd Generation 1.444 (0.358-3.74) uIU/mL Urine Color Yellow (Yellow) Urine Appearance Clear (Clear) Urine pH 7.0 (5.0-8.0) Ur Specific [place] 1.020 (1.005-1.030) Urine Protein 2+ H (Negative) Urine Glucose (UA) Negative (Negative) Urine Ketones Trace H (Negative) Urine Occult Blood Trace-intact H (Negative) Urine Nitrite Negative (Negative) Urine Bilirubin Negative (Negative) Urine Urobilinogen 0.2 (0.2-1.0) Ur Leukocyte Esterase Negative (Negative) Urine RBC 0-5 (0-5) /hpf Urine WBC 0-5 (0-5) /hpf Ur Epithelial Cells 0-5 (0-5) /hpf Urine Bacteria Few (FEW) /hpf Hyaline Casts 0-5 (0-5) /lpf Fine Granular Casts 0-5 (0-5) /lpf Urine Mucus Few (FEW) /hpf 07/03/17 07/03/17 07/03/17 Range/Units 12:01 12:01 15:15 WBC (3.98-10.04) K/mm3 RBC (3.98-5.22) M/mm3 Hgb (11.2-15.7) gm/L Hct (34.1-44.9) % MCV (79.4-94.8) fl MCH (25.6-32.2) pg MCHC (32.2-35.5) g/dl RDW Std Deviation (36.4-46.3) fL Plt Count (182-369) K/mm3 MPV (9.4-12.3) fl Neut % (Auto) (34.0-71.1) % Lymph % (Auto) (19.3-51.7) % [place] % (Auto) (4.7-12.5) % Eos % (Auto) (0.7-5.8) Baso % (Auto) (0.1-1.2) % Neut # (Auto) (1.56-6.13) K/mm3 Lymph # (Auto) (1.18-3.74) K/mm3 [place] # (Auto) (0.24-0.36) K/mm3 Eos # (Auto) (0.04-0.36) K/mm3 Baso # (Auto) (0.01-0.08) K/mm3 Neutrophils % (Manual) (40-60) % Band Neutrophils % (0-10) % Lymphocytes % (Manual) (20-40) % Atypical Lymphs % % Monocytes % (Manual) (2-10) % Eosinophils % (Manual) (0.7-5.8) % Basophils % (Manual) (0.1-1.2) Platelet Estimate RBC Morph Comment PT 11.7 (9.5-12.1) SECONDS INR 1.07 APTT 27 (24-31) SECONDS Sodium (136-145) mEq/L Potassium (3.5-5.1) mEq/L Chloride (98-107) mEq/L Carbon Dioxide (21-32) mEq/L Anion Gap (5-15) BUN (7-18) mg/dL Creatinine (0.55-1.02) mg/dL Est Cr Clr Drug Dosing mL/min Estimated GFR (MDRD) (>60) mL/min BUN/Creatinine Ratio (14-18) Glucose (83-115) mg/dL Calcium (8.5-10.1) mg/dL Magnesium (1.8-2.4) mg/dl Total Bilirubin (0.2-1.0) mg/dL AST (15-37) U/L ALT (14-59) U/L Alkaline Phosphatase (46-116) U/L Troponin I 0.072 H* 0.075 H* (0.00-0.056) ng/mL C-Reactive Protein (<1.0) mg/dL NT-Pro-B Natriuret Pep (0-450) pg/mL Total Protein (6.4-8.2) g/dl Albumin (3.4-5.0) g/dl Globulin gm/dL Albumin/Globulin Ratio (1-2) Triglycerides (<150) mg/dL Cholesterol (<200) mg/dL LDL Cholesterol Direct (<100) mg/dL HDL Cholesterol (40-59) mg/dL TSH 3rd Generation (0.358-3.74) uIU/mL Urine Color (Yellow) Urine Appearance (Clear) Urine pH (5.0-8.0) Ur Specific [place] (1.005-1.030) Urine Protein (Negative) Urine Glucose (UA) (Negative) Urine Ketones (Negative) Urine Occult Blood (Negative) Urine Nitrite (Negative) Urine Bilirubin (Negative) Urine Urobilinogen (0.2-1.0) Ur Leukocyte Esterase (Negative) Urine RBC (0-5) /hpf Urine WBC (0-5) /hpf Ur Epithelial Cells (0-5) /hpf Urine Bacteria (FEW) /hpf Hyaline Casts (0-5) /lpf Fine Granular Casts (0-5) /lpf Urine Mucus (FEW) /hpf 07/04/17 07/04/17 07/04/17 Range/Units 06:17 06:17 06:17 WBC 4.26 (3.98-10.04) K/mm3 RBC 4.35 (3.98-5.22) M/mm3 Hgb 13.8 (11.2-15.7) gm/L Hct 39.8 (34.1-44.9) % MCV 91.5 (79.4-94.8) fl MCH 31.7 (25.6-32.2) pg MCHC 34.7 (32.2-35.5) g/dl RDW Std Deviation 44.7 (36.4-46.3) fL Plt Count 195 (182-369) K/mm3 MPV 9.9 (9.4-12.3) fl Neut % (Auto) 49.3 (34.0-71.1) % Lymph % (Auto) 36.4 (19.3-51.7) % [place] % (Auto) 11.7 (4.7-12.5) % Eos % (Auto) 1.2 (0.7-5.8) Baso % (Auto) 1.2 (0.1-1.2) % Neut # (Auto) 2.10 (1.56-6.13) K/mm3 Lymph # (Auto) 1.55 (1.18-3.74) K/mm3 [place] # (Auto) 0.50 H (0.24-0.36) K/mm3 Eos # (Auto) 0.05 (0.04-0.36) K/mm3 Baso # (Auto) 0.05 (0.01-0.08) K/mm3 Neutrophils % (Manual) (40-60) % Band Neutrophils % (0-10) % Lymphocytes % (Manual) (20-40) % Atypical Lymphs % % Monocytes % (Manual) (2-10) % Eosinophils % (Manual) (0.7-5.8) % Basophils % (Manual) (0.1-1.2) Platelet Estimate RBC Morph Comment PT (9.5-12.1) SECONDS INR APTT (24-31) SECONDS Sodium 137 (136-145) mEq/L Potassium 3.6 (3.5-5.1) mEq/L Chloride 105 (98-107) mEq/L Carbon Dioxide 25 (21-32) mEq/L Anion Gap 10.6 (5-15) BUN 15 (7-18) mg/dL Creatinine 0.8 (0.55-1.02) mg/dL Est Cr Clr Drug Dosing 43.59 mL/min Estimated GFR (MDRD) > 60 (>60) mL/min BUN/Creatinine Ratio 18.8 H (14-18) Glucose 74 L (83-115) mg/dL Calcium 9.1 (8.5-10.1) mg/dL Magnesium 1.7 L (1.8-2.4) mg/dl Total Bilirubin (0.2-1.0) mg/dL AST (15-37) U/L ALT (14-59) U/L Alkaline Phosphatase (46-116) U/L Troponin I 0.081 H* (0.00-0.056) ng/mL C-Reactive Protein (<1.0) mg/dL NT-Pro-B Natriuret Pep 1250 H (0-450) pg/mL Total Protein (6.4-8.2) g/dl Albumin (3.4-5.0) g/dl Globulin gm/dL Albumin/Globulin Ratio (1-2) Triglycerides 43 (<150) mg/dL Cholesterol 188 (<200) mg/dL LDL Cholesterol Direct 100 (<100) mg/dL HDL Cholesterol 80.0 H (40-59) mg/dL TSH 3rd Generation (0.358-3.74) uIU/mL Urine Color (Yellow) Urine Appearance (Clear) Urine pH (5.0-8.0) Ur Specific [place] (1.005-1.030) Urine Protein (Negative) Urine Glucose (UA) (Negative) Urine Ketones (Negative) Urine Occult Blood (Negative) Urine Nitrite (Negative) Urine Bilirubin (Negative) Urine Urobilinogen (0.2-1.0) Ur Leukocyte Esterase (Negative) Urine RBC (0-5) /hpf Urine WBC (0-5) /hpf Ur Epithelial Cells (0-5) /hpf Urine Bacteria (FEW) /hpf Hyaline Casts (0-5) /lpf Fine Granular Casts (0-5) /lpf Urine Mucus (FEW) /hpf Med Orders - Current: Current Medications Acetaminophen (Tylenol) 650 mg PO Q6H PRN PRN Reason: Pain/Fever Aspirin (Aspirin) 81 mg PO DAILY [facility] Last Admin: 07/04/17 08:11 Dose: 81 mg Carvedilol (Coreg) 3.125 mg PO BID [facility] Last Admin: 07/04/17 08:12 Dose: 3.125 mg Clopidogrel Bisulfate (Plavix) 75 mg PO DAILY [facility] Last Admin: 07/04/17 08:11 Dose: 75 mg Enoxaparin Sodium (Lovenox) 60 mg SUBCUT BID [facility] Hydralazine HCl (Apresoline) 20 mg IVPUSH Q6H PRN PRN Reason: Hypertension Lactated Ringer's (Ringers, Lactated) 1,000 mls @ 75 mls/hr IV ASDIRECTED [facility] Stop: 07/04/17 11:00 Last Admin: 07/04/17 05:06 Dose: 75 mls/hr Levothyroxine Sodium (Levothyroxine) 75 mcg PO ACBRK [facility] Last Admin: 07/04/17 05:06 Dose: 75 mcg Simvastatin (Zocor) 10 mg PO BEDTIME [facility] Last Admin: 07/03/17 20:27 Dose: 10 mg Temazepam (Restoril) 7.5 mg PO BEDTIME PRN PRN Reason: Insomnia Discontinued Medications Aspirin (Aspirin) 324 mg PO ONETIME ONE Stop: 07/03/17 14:33 Last Admin: 07/03/17 14:53 Dose: 324 mg Aspirin (Aspirin) Confirm Administered Dose 81 mg .ROUTE .STK-MED ONE Stop: 07/03/17 15:00 Last Admin: 07/03/17 15:59 Dose: Not Given Clopidogrel Bisulfate (Plavix) 300 mg PO ONETIME ONE Stop: 07/03/17 16:40 Last Admin: 07/03/17 17:54 Dose: 300 mg Clopidogrel Bisulfate (Plavix) 300 mg PO ONETIME ONE Stop: 07/03/17 18:01 Last Admin: 07/03/17 18:04 Dose: Not Given Enoxaparin Sodium (Lovenox) 60 mg SUBCUT DAILY [facility] Last Admin: 07/04/17 08:12 Dose: 60 mg Lactated Ringer's (Ringers, Lactated) 1,000 mls @ 75 mls/hr IV ASDIRECTED [facility] Stop: 07/03/17 16:46 - Exam Quality Assessment: DVT Prophylaxis General: Alert, Oriented, Cooperative HEENT: Pupils Equal, Pupils Reactive, EOMI Neck: Trachea Midline, No JVD Lungs: Normal Respiratory Effort Cardiovascular: Regular Rate, Regular Rhythm GI/Abdominal Exam: Normal Bowel Sounds, Soft, Non-Tender, No Organomegaly, No Distention (Female) Exam: Deferred Back Exam: Normal Inspection Extremities: Normal Inspection, Non-Tender, Normal Capillary Refill Skin: Warm Neurological: No New Focal Deficit Psy/Mental Status: Alert, Normal Affect, Normal Mood - Problem List Review Problem List Initiated/Reviewed/Updated: Yes - My Orders Last 24 Hours: My Active Orders 07/03/17 16:27 Resuscitation Status Routine 07/03/17 16:40 hydrALAZINE [Apresoline] 20 mg IVPUSH Q6H PRN 07/03/17 16:45 Carvedilol [Coreg] 3.125 mg PO BID 07/03/17 16:52 Vital Signs [RC] Q4HR Consult to Case Management [CONS] Routine 07/03/17 16:56 Acetaminophen [Tylenol] 650 mg PO Q6H PRN Temazepam [Restoril] 7.5 mg PO BEDTIME PRN 07/03/17 21:00 Simvastatin [Zocor] 10 mg PO BEDTIME 07/03/17 Dinner Heart Healthy Diet [DIET] 07/04/17 05:00 Lactated Ringers [Ringers, Lactated] 1,000 ml IV ASDIRECTED 07/04/17 06:00 Levothyroxine 75 mcg PO ACBRK 07/04/17 08:00 Consult to Occupational Therapy [OT Evaluation and Treatment] [CONS] Routine Consult to Physical Therapy [PT Evaluation and Treatment] [CONS] Routine Echo Comp wo Cont [US] Routine 07/04/17 09:00 Aspirin 81 mg PO DAILY Clopidogrel [Plavix] 75 mg PO DAILY 07/04/17 10:00 Chest 2V [CR] Routine 07/04/17 21:00 Enoxaparin [Lovenox] 60 mg SUBCUT BID 07/05/17 05:00 BMP [BASIC METABOLIC PANEL,BMP] [CHEM] DAILY CBC WITH AUTO DIFF [HEME] DAILY MAGNESIUM [CHEM] DAILY PRO B-TYPE NATRIUR PEPT,BNPPRO [CHEM] DAILY 07/06/17 05:00 BMP [BASIC METABOLIC PANEL,BMP] [CHEM] DAILY CBC WITH AUTO DIFF [HEME] DAILY MAGNESIUM [CHEM] DAILY PRO B-TYPE NATRIUR PEPT,BNPPRO [CHEM] DAILY - Plan Plan:: Impression: Acute confusion--resolved History of Alzheimers Dementia ACS/NonSTEMI requesting medical management only. Hypothyroidism on replacement therapy Plan: IVF HTN meds Ischemic protocol Lovenox renal dose Plavix load, then 75 mg daily 2 D echo PCP/Card follow up 1-2 weeks DVT/GI prophylaxis Consult CM/PT/OT DC 24-48 hours.
--- NOTE | 2017-07-04 11:09 | CR ---
Chest: Two views of the chest were obtained. Comparison: No prior chest x-ray. Heart size slightly enlarged. Upper mediastinum is within normal limits. Lungs are hyperinflated compatible with the some of this change. Nodular density is seen overlying the mid to lower thoracic spine either due to a bone island within the vertebral body or a pulmonary nodule. Lungs are hyperinflated but otherwise clear. Slight scoliosis is noted within the spine. Degenerative change is noted within the spine. Several slight compression deformities within the mid and lower thoracic spine are seen. Impression: 1. Mild cardiomegaly. Emphysematous change. 2. Nodule within the lung or possibly bone island within the spine. Size of this finding is 7.6 mm. 3. Nothing acute is otherwise seen. Diagnostic code #3
[2017-07-04] MEDS ORDERED: Potassium Chloride 20 MEQ Tab.ER PO ONE (15:25)
[2017-07-04] MEDS ORDERED: Furosemide 20 MG/2 ML VIAL IVPUSH ONE (15:25)
[2017-07-04] MEDS: Simvastatin 10 MG Tab PO SCH (20:48)
[2017-07-04] MEDS: hydrALAZINE 20 MG/ML SDV IVPUSH PRN (20:49)
[2017-07-04] MEDS ORDERED: Haloperidol Lactate 5 MG/ML SDV IVPUSH ONE (20:58)
[2017-07-04] MEDS: Acetaminophen 325 MG Tab PO PRN (23:12)
[2017-07-05] MEDS ORDERED: Ondansetron 4 MG/2 ML SDV IVPUSH PRN (00:29)
[2017-07-05] MEDS: hydrALAZINE 20 MG/ML SDV IVPUSH PRN (06:18)
[2017-07-05] MEDS: Levothyroxine 75 MCG Tab PO SCH (06:18)
[2017-07-05] MEDS: Acetaminophen 325 MG Tab PO PRN (06:18)
[2017-07-05] MEDS ORDERED: Metoprolol Tartrate 5 MG/5 ML SDV IVPUSH PRN (07:22)
[2017-07-05] MEDS ORDERED: Nitroglycerin 0.4 MG Tab.SL SL PRN (07:26)
[2017-07-05] MEDS ORDERED: Magnesium Sulfate/Water 100 ML ONE (08:29)
[2017-07-05] MEDS ORDERED: Sodium Chloride 0.9% 250 ML IV SCH (08:30)
[2017-07-05] MEDS: Magnesium Sulfate/Water 2 GM in Premix Bag 1 BAG IV SCH ×2 (08:34→10:58)
[2017-07-05] MEDS: Aspirin 81 MG Tab.Chew PO SCH (08:46)
[2017-07-05] MEDS: Clopidogrel 75 MG Tab PO SCH (08:46)
[2017-07-05] MEDS: Enoxaparin 60 MG/0.6 ML Syringe SUBCUT SCH ×2 (08:46→20:31)
[2017-07-05] MEDS: Carvedilol 3.125 MG Tab PO SCH ×2 (08:49→20:30)
--- NOTE | 2017-07-05 09:09 | PCM.SN ---
- Free Text/Narrative Note: Patient has had an episode of anxiety with a rapid heart rate, junctional tachycardia. IVF, 250 cc bolus will be given, beta blockade will be given for HR>120. MgSO4 4 gm IV will be given to replace Mg 1.5. The patient's POA, Sincere is in agreement with his siblings, her code status will become DNR/DNI. She will be moved to the ICU for close monitoring. A transfer may be pursued if needed for higher level of care.
--- NOTE | 2017-07-05 11:17 | PCM.SN ---
- Free Text/Narrative Note: Spoke to DPOA and other family member at bedside. Asked DPOA, if they want aggressive treatment and he stated "no". Also explained and updated them about patient's clinical progress. Offered to transfer patient out to [place] for upper level of care but DPOA okayed to just have her stay here for medical management.
--- NOTE | 2017-07-05 16:30 | PCM.PN ---
- General Info Date of Service: 07/05/17 Admission Dx/Problem (Free Text): Admission Diagnosis/Problem Admission Diagnosis/Problem NSTEMI, initial episode of care Functional Status: Reports: Pain Controlled, Tolerating Diet, Ambulating, Urinating. Denies: New Symptoms - Review of Systems General: Reports: No Symptoms HEENT: Reports: No Symptoms Pulmonary: Denies: Shortness of Breath, Pleuritic Chest Pain Cardiovascular: Denies: Chest Pain, Palpitations, Dyspnea on Exertion, Lightheadedness Gastrointestinal: Denies: Abdominal Pain, Decreased Appetite, Difficulty Swallowing, Nausea, Vomiting Genitourinary: Reports: No Symptoms Musculoskeletal: Reports: No Symptoms Skin: Denies: Cyanosis, Mottled, Pallor, Diaphoresis, Rash Neurological: Denies: Confusion, Difficulty Walking, Weakness Psychiatric: Denies: Depression, Anxiety, Agitation, Hallucinations Systems Review Comment:: No significant overnight issues. However she had a brief episode of junctional tachycardia this morning and fort his reason she was moved to the unit for close monitoring. So far she has not had abnormal telemetry. Her Mg is low this AM. She report no complaints. - Patient Data Vitals - Most Recent: Last Vital Signs Temp 37.1 C 07/05/17 09:30 Pulse 77 07/05/17 12:00 Resp 15 07/05/17 12:00 BP 101/63 07/05/17 12:00 Pulse Ox 98 07/05/17 12:00 Weight - Most Recent: 56.382 kg I&O - Last 24 Hours: Intake & Output 07/05/17 07/05/17 07/05/17 06:59 14:59 22:59 Intake Total 200 30 Output Total 650 Balance -450 30 Imaging Impressions - Last 24 Hours: 2-D echo report reads LVEF est of 50-55% with Grade 1 LV diastolic dysfunction. Lab Results Last 24 Hours: Laboratory Results - last 24 hr 07/05/17 07/05/17 07/05/17 Range/Units 06:05 06:05 06:05 WBC 5.61 (3.98-10.04) K/mm3 RBC 5.07 (3.98-5.22) M/mm3 Hgb 15.8 H (11.2-15.7) gm/L Hct 45.4 H (34.1-44.9) % MCV 89.5 (79.4-94.8) fl MCH 31.2 (25.6-32.2) pg MCHC 34.8 (32.2-35.5) g/dl RDW Std Deviation 43.5 (36.4-46.3) fL Plt Count 199 (182-369) K/mm3 MPV 10.0 (9.4-12.3) fl Neut % (Auto) 73.7 H (34.0-71.1) % Lymph % (Auto) 20.0 (19.3-51.7) % [place] % (Auto) 5.5 (4.7-12.5) % Eos % (Auto) 0.2 L (0.7-5.8) Baso % (Auto) 0.4 (0.1-1.2) % Neut # (Auto) 4.14 (1.56-6.13) K/mm3 Lymph # (Auto) 1.12 L (1.18-3.74) K/mm3 [place] # (Auto) 0.31 (0.24-0.36) K/mm3 Eos # (Auto) 0.01 L (0.04-0.36) K/mm3 Baso # (Auto) 0.02 (0.01-0.08) K/mm3 Sodium 136 (136-145) mEq/L Potassium 3.9 (3.5-5.1) mEq/L Chloride 101 (98-107) mEq/L Carbon Dioxide 22 (21-32) mEq/L Anion Gap 16.9 H (5-15) BUN 15 (7-18) mg/dL Creatinine 0.8 (0.55-1.02) mg/dL Est Cr Clr Drug Dosing 43.59 mL/min Estimated GFR (MDRD) > 60 (>60) mL/min BUN/Creatinine Ratio 18.8 H (14-18) Glucose 107 (83-115) mg/dL Calcium 9.8 (8.5-10.1) mg/dL Magnesium 1.5 L (1.8-2.4) mg/dl Troponin I (0.00-0.056) ng/mL NT-Pro-B Natriuret Pep 1202 H (0-450) pg/mL 07/05/17 Range/Units 06:05 WBC (3.98-10.04) K/mm3 RBC (3.98-5.22) M/mm3 Hgb (11.2-15.7) gm/L Hct (34.1-44.9) % MCV (79.4-94.8) fl MCH (25.6-32.2) pg MCHC (32.2-35.5) g/dl RDW Std Deviation (36.4-46.3) fL Plt Count (182-369) K/mm3 MPV (9.4-12.3) fl Neut % (Auto) (34.0-71.1) % Lymph % (Auto) (19.3-51.7) % Moca % (Auto) (4.7-12.5) % Eos % (Auto) (0.7-5.8) Baso % (Auto) (0.1-1.2) % Neut # (Auto) (1.56-6.13) K/mm3 Lymph # (Auto) (1.18-3.74) K/mm3 Moca # (Auto) (0.24-0.36) K/mm3 Eos # (Auto) (0.04-0.36) K/mm3 Baso # (Auto) (0.01-0.08) K/mm3 Sodium (136-145) mEq/L Potassium (3.5-5.1) mEq/L Chloride (98-107) mEq/L Carbon Dioxide (21-32) mEq/L Anion Gap (5-15) BUN (7-18) mg/dL Creatinine (0.55-1.02) mg/dL Est Cr Clr Drug Dosing mL/min Estimated GFR (MDRD) (>60) mL/min BUN/Creatinine Ratio (14-18) Glucose (83-115) mg/dL Calcium (8.5-10.1) mg/dL Magnesium (1.8-2.4) mg/dl Troponin I 0.090 H* (0.00-0.056) ng/mL NT-Pro-B Natriuret Pep (0-450) pg/mL Med Orders - Current: Current Medications Acetaminophen (Tylenol) 650 mg PO Q6H PRN PRN Reason: Pain/Fever Last Admin: 07/05/17 06:18 Dose: 650 mg Aspirin (Aspirin) 81 mg PO DAILY [facility] Last Admin: 07/05/17 08:46 Dose: 81 mg Carvedilol (Coreg) 3.125 mg PO BID [facility] Last Admin: 07/05/17 08:49 Dose: Not Given Clopidogrel Bisulfate (Plavix) 75 mg PO DAILY [facility] Last Admin: 07/05/17 08:46 Dose: 75 mg Enoxaparin Sodium (Lovenox) 60 mg SUBCUT BID [facility] Last Admin: 07/05/17 08:46 Dose: 60 mg Hydralazine HCl (Apresoline) 20 mg IVPUSH Q6H PRN PRN Reason: Hypertension Last Admin: 07/05/17 06:18 Dose: 20 mg Sodium Chloride (Normal Saline) 250 mls @ 75 mls/hr IV ASDIRECTED [facility] Last Admin: 07/05/17 08:32 Dose: 75 mls/hr Levothyroxine Sodium (Levothyroxine) 75 mcg PO ACBRK [facility] Last Admin: 07/05/17 06:18 Dose: 75 mcg Lisinopril (Prinivil) 10 mg PO BID [facility] Metoprolol Tartrate (Lopressor) 5 mg IVPUSH Q6H PRN PRN Reason: HR>120 Nitroglycerin (Nitrostat) 0.4 mg SL Q5M PRN PRN Reason: Chest Pain Ondansetron HCl (Zofran) 4 mg IVPUSH Q6HR PRN PRN Reason: Nausea Last Admin: 07/05/17 06:18 Dose: 4 mg Simvastatin (Zocor) 10 mg PO BEDTIME [facility] Last Admin: 07/04/17 20:48 Dose: 10 mg Temazepam (Restoril) 7.5 mg PO BEDTIME PRN PRN Reason: Insomnia Discontinued Medications Aspirin (Aspirin) 324 mg PO ONETIME ONE Stop: 07/03/17 14:33 Last Admin: 07/03/17 14:53 Dose: 324 mg Aspirin (Aspirin) Confirm Administered Dose 81 mg .ROUTE .STK-MED ONE Stop: 07/03/17 15:00 Last Admin: 07/03/17 15:59 Dose: Not Given Clopidogrel Bisulfate (Plavix) 300 mg PO ONETIME ONE Stop: 07/03/17 16:40 Last Admin: 07/03/17 17:54 Dose: 300 mg Clopidogrel Bisulfate (Plavix) 300 mg PO ONETIME ONE Stop: 07/03/17 18:01 Last Admin: 07/03/17 18:04 Dose: Not Given Enoxaparin Sodium (Lovenox) 60 mg SUBCUT DAILY [facility] Last Admin: 07/04/17 08:12 Dose: 60 mg Furosemide (Lasix) 10 mg IVPUSH NOW ONE Stop: 07/04/17 15:26 Last Admin: 07/04/17 15:27 Dose: 10 mg Haloperidol Lactate (Haldol) 1 mg IVPUSH ONETIME ONE Stop: 07/04/17 20:59 Lactated Ringer's (Ringers, Lactated) 1,000 mls @ 75 mls/hr IV ASDIRECTED [facility] Stop: 07/03/17 16:46 Lactated Ringer's (Ringers, Lactated) 1,000 mls @ 75 mls/hr IV ASDIRECTED [facility] Stop: 07/04/17 11:00 Last Admin: 07/04/17 05:06 Dose: 75 mls/hr Magnesium Sulfate 2 gm/ Premix 50 mls @ 25 mls/hr IV Q2H [facility] Stop: 07/05/17 12:28 Last Admin: 07/05/17 10:58 Dose: 25 mls/hr Magnesium Sulfate (Magnesium Sulfate 2 Gm In Water 50 Ml) Confirm Administered Dose 100 mls @ as directed .ROUTE .STK-MED ONE Stop: 07/05/17 08:30 Last Admin: 07/05/17 08:38 Dose: Not Given Potassium Chloride (Klor-Con M20) 40 meq PO ONETIME ONE Stop: 07/04/17 15:26 Last Admin: 07/04/17 15:27 Dose: 40 meq - Exam General: Alert, Oriented, Cooperative, No Acute Distress HEENT: Pupils Equal, Pupils Reactive, EOMI, Mucous Membr. Moist/[place] Neck: Supple, Trachea Midline, No JVD Lungs: Normal Respiratory Effort, Decreased Breath Sounds Cardiovascular: Regular Rate, Regular Rhythm GI/Abdominal Exam: Normal Bowel Sounds, Soft, Non-Tender, No Organomegaly, No Distention, No Abnormal Bruit (Female) Exam: Deferred Back Exam: Normal Inspection, Decreased Range of Motion Extremities: Normal Inspection, Non-Tender, No Pedal Edema, Normal Capillary Refill, Limited Range of Motion Peripheral Pulses: 2+: Dorsalis Pedis (L), Dorsalis Pedis (R) Skin: Warm, Dry, Intact Neurological: No New Focal Deficit Psy/Mental Status: Alert, Normal Affect, Normal Mood - Problem List Review Problem List Initiated/Reviewed/Updated: Yes - My Orders Last 24 Hours: My Active Orders 07/05/17 15:02 Patient Status [ADT] Routine - Plan Plan:: Impression: Acute: Junctional Tachycardia - 2/2 electrolyte abnormality - Mg is 1.5; has received Mg supplement - She currently in normal sinus rhythm ACS/NonSTEMI - Medical management only - Spoke to DPOA and offered invasive treatment but wants medical management only per patient's request - Currently on ASA/Plavix, BB, Lovenox SubQ and Statin Hypomagnesemia - Mg 1.7--> 1.5 - 2/2 inadequate intake - Already received IV supplement Resolved: S/p Acute confusion - History of Alzheimer's Dementia Chronic: Impaired Vision/Hearing HTN HLD Vertigo Memory Impairment Anemia Hx/o Urinary Incontinence Plan: ICU for cardiac monitoring She is clinically better 2D echo report: benign; reviewed and discussed result with DPOA, family members and patient PCP/Card follow up 1-2 weeks DVT/GI prophylaxis Continue PT/OT Possible d/c 1-2 days
[2017-07-05] MEDS: Simvastatin 10 MG Tab PO SCH (20:30)
[2017-07-05] MEDS: Lisinopril 10 MG Tab PO SCH (20:31)
[2017-07-05] MEDS ORDERED: LORazepam 2 MG/ML SDV IVPUSH PRN (21:55)
[2017-07-06] MEDS: Levothyroxine 75 MCG Tab PO SCH (05:14)
[2017-07-06] MEDS: Carvedilol 3.125 MG Tab PO SCH (08:12)
[2017-07-06] MEDS: Enoxaparin 60 MG/0.6 ML Syringe SUBCUT SCH (08:12)
[2017-07-06] MEDS: Clopidogrel 75 MG Tab PO SCH (08:12)
[2017-07-06] MEDS: Lisinopril 10 MG Tab PO SCH (08:12)
[2017-07-06] MEDS: Aspirin 81 MG Tab.Chew PO SCH (08:12)
[2017-07-06 08:13] VITALS: BP 141/94
--- NOTE | 2017-07-06 10:00 | PCM.DCSUM1 ---
Discharge Summary - Discharge Data Discharge Date: 07/06/17 Discharge Disposition: Home, Self-Care 01 Condition: Good - Discharge Diagnosis/Problem(s) (1) NSTEMI (non-ST elevated myocardial infarction) SNOMED Code(s): 262937871 ICD Code: I21.4 - NON-ST ELEVATION (NSTEMI) MYOCARDIAL INFARCTION Status: Acute (2) HTN, goal below 140/90 SNOMED Code(s): 11947700 ICD Code: I10 - ESSENTIAL (PRIMARY) HYPERTENSION Status: Chronic (3) Confusion SNOMED Code(s): 697674558 ICD Code: R41.0 - DISORIENTATION, UNSPECIFIED Status: Acute - Patient Summary/Data Operative Procedure(s) Performed: None Complications: None Consults: Consultations 07/03/17 16:52 Consult to Case Management [CONS] Routine 07/04/17 08:00 Consult to Occupational Therapy [OT Evaluation and Treatment] [CONS] Routine Consult to Physical Therapy [PT Evaluation and Treatment] [CONS] Routine Labs Pending at D/C: None Recommended Follow-up Testing/Procedures: None Planned Operative Procedure(s) after DC: None Hospital Course: Patient was primarily admitted for acute confusion and was diagnosed with NTSEMI. All troponins were negative and her EKG shows no acute ST-T wave changes. Her lipid panel was within normal limits. Her 2-D echo was within normal limits. Patient was provided mainly medical management to include Lovenox , Aspirin, Plavix, low-dose Coreg and low-dose MICHAEL inhibitor. Slowly, she improved on this regimen. Her hospital course was mildly complicated by a one-time episode of junctional tachycardia due to electrolyte abnormalities. However we were quick to resolve her hypomagnesemia and there after her rhythm went back to normal. When I took over care, transfer option was offered to the family but decided to stay and continue with medical treatment. Patient was stable upon discharge. She will be going home with a new regimen for her cardiac as well as her blood pressure medications. He was advised to call or follow-up with her primary care provider for any questions or concerns after discharge. She was advised to take her blood pressure at least 3 times a day and show her log and follow-up appointment. Most importantly, she was advised to come back or seek immediate care to the nearest medical facility should her symptoms persist or get worse. The patient and family members at bedside expressed understanding and in agreement with the plans as discussed above. All questions were answered. On the day of discharge, Dr. Chanel Fletcher, PCP was called and updated regarding discharge care plan. - Patient Instructions Diet: Heart Healthy Diet, Usual Diet as Tolerated Activity: As Tolerated Driving: Do Not Drive Showering/Bathing: May Shower Notify Provider of: Fever, Increased Pain, Nausea and/or Vomiting Other/Special Instructions: - Please take all new medications as directed. - Continue all home medications. - Resume routine home activities as tolerated. - Call your family doctor for any questions or concerns after discharge. - Follow up with PCP in 1 week. - Come back or seek immediate care should your symptom persists or gets worse - Discharge Plan Prescriptions/Med Rec: Aspirin 81 mg PO DAILY #100 tab.chew Carvedilol [Coreg] 3.125 mg PO BID #60 tablet Clopidogrel [Plavix] 75 mg PO DAILY #30 tablet Hydrochlorothiazide 12.5 mg PO BID #60 cap Lisinopril [Prinivil] 10 mg PO BIDMEALS #60 tablet Home Medications: Home Meds Levothyroxine [Synthroid] 75 mcg PO DAILY 02/18/15 [History] Aspirin 81 mg PO DAILY #100 tab.chew 07/05/17 [Rx] Carvedilol [Coreg] 3.125 mg PO BID #60 tablet 07/05/17 [Rx] Clopidogrel [Plavix] 75 mg PO DAILY #30 tablet 07/05/17 [Rx] Lisinopril [Prinivil] 10 mg PO BIDMEALS #60 tablet 07/05/17 [Rx] Hydrochlorothiazide 12.5 mg PO BID #60 cap 07/06/17 [Rx] Patient Handouts: Confusion, Heart Attack Referrals: PCP,Unknown [Ordering Only Provider] - - Discharge Summary/Plan Comment DC Time >30 min.: Yes (45 mins) Discharge Summary/Plan Comment: Discharge to Home - General Info Date of Service: 07/06/17 Admission Dx/Problem (Free Text: Admission Diagnosis/Problem Admission Diagnosis/Problem NSTEMI, initial episode of care Subjective Update: Follow Up Functional Status: Reports: Pain Controlled, Tolerating Diet, Ambulating, Urinating - Review of Systems General: Denies: Fever, Weakness, Fatigue, Malaise, Chills HEENT: Reports: No Symptoms Pulmonary: Denies: Shortness of Breath Cardiovascular: Denies: Chest Pain, Palpitations, Dyspnea on Exertion, Lightheadedness Gastrointestinal: Denies: Abdominal Pain, Nausea, Vomiting Genitourinary: Reports: No Symptoms Musculoskeletal: Reports: No Symptoms Skin: Denies: Cyanosis, Jaundice, Mottled, Pallor, Diaphoresis, Rash Neurological: Reports: Confusion (baseline confusion). Denies: Difficulty Walking, Weakness, Gait Disturbance Psychiatric: Denies: Depression, Anxiety, Agitation, Hallucinations Systems Review Comment: No overnight or acute issues. She slept pretty good last night and reports no complaints. Daughter states "she looks much better this morning". No reports or abnormal rhythm or rate per day nurse. Her vitals remain stable. - Patient Data Vitals - Most Recent: Last Vital Signs Temp 37.0 C 07/06/17 08:55 Pulse 75 07/06/17 08:55 Resp 20 07/06/17 08:55 BP 141/94 H 07/06/17 08:55 Pulse Ox 98 07/06/17 08:55 Weight - Most Recent: 56.744 kg I&O - Last 24 hours: Intake & Output 07/05/17 07/06/17 07/06/17 22:59 06:59 14:59 Intake Total 830 250 Output Total 400 Balance 430 250 Lab Results - Last 24 hrs: Laboratory Results - last 24 hr 07/06/17 07/06/17 07/06/17 Range/Units 05:15 05:15 05:15 WBC 6.01 (3.98-10.04) K/mm3 RBC 4.60 (3.98-5.22) M/mm3 Hgb 14.6 (11.2-15.7) gm/L Hct 41.7 (34.1-44.9) % MCV 90.7 (79.4-94.8) fl MCH 31.7 (25.6-32.2) pg MCHC 35.0 (32.2-35.5) g/dl RDW Std Deviation 44.6 (36.4-46.3) fL Plt Count 188 (182-369) K/mm3 MPV 10.0 (9.4-12.3) fl Neut % (Auto) 48.0 (34.0-71.1) % Lymph % (Auto) 39.8 (19.3-51.7) % [place] % (Auto) 11.0 (4.7-12.5) % Eos % (Auto) 0.7 (0.7-5.8) Baso % (Auto) 0.5 (0.1-1.2) % Neut # (Auto) 2.89 (1.56-6.13) K/mm3 Lymph # (Auto) 2.39 (1.18-3.74) K/mm3 [place] # (Auto) 0.66 H (0.24-0.36) K/mm3 Eos # (Auto) 0.04 (0.04-0.36) K/mm3 Baso # (Auto) 0.03 (0.01-0.08) K/mm3 Sodium 134 L (136-145) mEq/L Potassium 3.7 (3.5-5.1) mEq/L Chloride 102 (98-107) mEq/L Carbon Dioxide 26 (21-32) mEq/L Anion Gap 9.7 (5-15) BUN 20 H (7-18) mg/dL Creatinine 1.0 (0.55-1.02) mg/dL Est Cr Clr Drug Dosing 34.87 mL/min Estimated GFR (MDRD) 53 (>60) mL/min BUN/Creatinine Ratio 20.0 H (14-18) Glucose 77 L (83-115) mg/dL Calcium 9.0 (8.5-10.1) mg/dL Magnesium 2.1 (1.8-2.4) mg/dl NT-Pro-B Natriuret Pep 781 H (0-450) pg/mL Med Orders - Current: Current Medications Acetaminophen (Tylenol) 650 mg PO Q6H PRN PRN Reason: Pain/Fever Last Admin: 07/05/17 06:18 Dose: 650 mg Aspirin (Aspirin) 81 mg PO DAILY [facility] Last Admin: 07/06/17 08:12 Dose: 81 mg Carvedilol (Coreg) 3.125 mg PO BID [facility] Last Admin: 07/06/17 08:12 Dose: 3.125 mg Clopidogrel Bisulfate (Plavix) 75 mg PO DAILY [facility] Last Admin: 07/06/17 08:12 Dose: 75 mg Enoxaparin Sodium (Lovenox) 60 mg SUBCUT BID [facility] Last Admin: 07/06/17 08:12 Dose: 60 mg Hydralazine HCl (Apresoline) 20 mg IVPUSH Q6H PRN PRN Reason: Hypertension Last Admin: 07/05/17 06:18 Dose: 20 mg Sodium Chloride (Normal Saline) 250 mls @ 75 mls/hr IV ASDIRECTED [facility] Last Admin: 07/05/17 08:32 Dose: 75 mls/hr Levothyroxine Sodium (Levothyroxine) 75 mcg PO ACBRK [facility] Last Admin: 07/06/17 05:14 Dose: 75 mcg Lisinopril (Prinivil) 10 mg PO BID [facility] Last Admin: 07/06/17 08:12 Dose: 10 mg Lorazepam (Ativan) 0.25 mg IVPUSH Q4H PRN PRN Reason: Anxiety Metoprolol Tartrate (Lopressor) 5 mg IVPUSH Q6H PRN PRN Reason: HR>120 Nitroglycerin (Nitrostat) 0.4 mg SL Q5M PRN PRN Reason: Chest Pain Ondansetron HCl (Zofran) 4 mg IVPUSH Q6HR PRN PRN Reason: Nausea Last Admin: 07/05/17 06:18 Dose: 4 mg Simvastatin (Zocor) 10 mg PO BEDTIME [facility] Last Admin: 07/05/17 20:30 Dose: 10 mg Temazepam (Restoril) 7.5 mg PO BEDTIME PRN PRN Reason: Insomnia Discontinued Medications Aspirin (Aspirin) 324 mg PO ONETIME ONE Stop: 07/03/17 14:33 Last Admin: 07/03/17 14:53 Dose: 324 mg Aspirin (Aspirin) Confirm Administered Dose 81 mg .ROUTE .STK-MED ONE Stop: 07/03/17 15:00 Last Admin: 07/03/17 15:59 Dose: Not Given Clopidogrel Bisulfate (Plavix) 300 mg PO ONETIME ONE Stop: 07/03/17 16:40 Last Admin: 07/03/17 17:54 Dose: 300 mg Clopidogrel Bisulfate (Plavix) 300 mg PO ONETIME ONE Stop: 07/03/17 18:01 Last Admin: 07/03/17 18:04 Dose: Not Given Enoxaparin Sodium (Lovenox) 60 mg SUBCUT DAILY [facility] Last Admin: 07/04/17 08:12 Dose: 60 mg Furosemide (Lasix) 10 mg IVPUSH NOW ONE Stop: 07/04/17 15:26 Last Admin: 07/04/17 15:27 Dose: 10 mg Haloperidol Lactate (Haldol) 1 mg IVPUSH ONETIME ONE Stop: 07/04/17 20:59 Last Admin: 07/05/17 20:52 Dose: Not Given Lactated Ringer's (Ringers, Lactated) 1,000 mls @ 75 mls/hr IV ASDIRECTED [facility] Stop: 07/03/17 16:46 Lactated Ringer's (Ringers, Lactated) 1,000 mls @ 75 mls/hr IV ASDIRECTED [facility] Stop: 07/04/17 11:00 Last Admin: 07/04/17 05:06 Dose: 75 mls/hr Magnesium Sulfate 2 gm/ Premix 50 mls @ 25 mls/hr IV Q2H [facility] Stop: 07/05/17 12:28 Last Admin: 07/05/17 10:58 Dose: 25 mls/hr Magnesium Sulfate (Magnesium Sulfate 2 Gm In Water 50 Ml) Confirm Administered Dose 100 mls @ as directed .ROUTE .STK-MED ONE Stop: 07/05/17 08:30 Last Admin: 07/05/17 08:38 Dose: Not Given Potassium Chloride (Klor-Con M20) 40 meq PO ONETIME ONE Stop: 07/04/17 15:26 Last Admin: 07/04/17 15:27 Dose: 40 meq
[2017-07-06] MEDS ORDERED: Pneumococcal Polyvalent-23 Vaccine 0.5 ML SDV IM ONE (11:12)
== END 2017-07-06 11:30 | disposition home or self-care (01) | DRG 281 ==
LOC: JD.ED 10:46 → JD.MS 15:41 → JD.ICU 07-05 08:52
PROVIDERS: ADMIT Internal Medicine Cardiovascular Disease; ATTEND Internal Medicine Cardiovascular Disease
PROC: 3E0234Z Introduction of Serum, Toxoid and Vaccine into Muscle, Percutaneous Approach (ICD-10-PCS; principal; 2017-07-06)
DX: I21.4 Non-ST elevation (NSTEMI) myocardial infarction (principal); R68.83 Chills (without fever); R61 Generalized hyperhidrosis; N39.0 Urinary tract infection, site not specified; I10 Essential (primary) hypertension; R41.0 Disorientation, unspecified; E83.42 Hypomagnesemia; G30.9 Alzheimer's disease, unspecified; F02.80 Dementia in other diseases classified elsewhere, unspecified severity, without behavioral disturbance, psychotic disturbance, mood disturbance, and anxiety; H91.90 Unspecified hearing loss, unspecified ear; E78.00 Pure hypercholesterolemia, unspecified; H54.7 Unspecified visual loss; K64.9 Unspecified hemorrhoids; R42 Dizziness and giddiness; E03.9 Hypothyroidism, unspecified; D64.9 Anemia, unspecified; R53.1 Weakness; R80.9 Proteinuria, unspecified; R31.29 Other microscopic hematuria; R74.9 Abnormal serum enzyme level, unspecified; E78.5 Hyperlipidemia, unspecified; R32 Unspecified urinary incontinence; F41.9 Anxiety disorder, unspecified; Z23 Encounter for immunization; Z86.73 Personal history of transient ischemic attack (TIA), and cerebral infarction without residual deficits; Z87.440 Personal history of urinary (tract) infections; Z66 Do not resuscitate; Z79.899 Other long term (current) drug therapy
CPT/HCPCS: 36415; 70450; 80053; 81001; 84443; 84484 ×2; 85025; 85610; 85730; 86140; 93005; 99285; A9270; 71046; 71046-26; 80048; 80061; 83735; 83880; 90732; 93306; 97161-GP; 97165-GO; J0360; J1650; J2405; J3475; J7050; J7120

== ENCOUNTER 2017-07-14 18:35 | Emergency (ER) | payer MEDICARE, BC ==
[2017-07-14 18:46] VITALS: BP 170/102
--- NOTE | 2017-07-14 20:13 | EDM.PDOC ---
ED HPI GENERAL MEDICAL PROBLEM - General Chief Complaint: Abdominal Pain Stated Complaint: [facility] Time Seen by Provider: 07/14/17 18:58 Source of Information: Reports: Patient, Family History Limitations: Reports: No Limitations - History of Present Illness INITIAL COMMENTS - FREE TEXT/NARRATIVE: This is an 87-year-old female. Apparently around 2 PM this evening she had onset of right lower quadrant abdominal pain. According to the family she is not always an accurate historian but she seemed to be in enough pain over the last 3 hours that they brought her to the ER for evaluation. On the way to the ER from [place] apparently she was given some pain medicine IV and now she has no pain in the right lower quadrant. The patient states she's had no surgeries on her abdomen still has her gallbladder her appendix per uterus and ovaries. She seems to be without distress at this time and seems to be answering questions fairly appropriately. The family has not noted any fever or chills no nausea and vomiting no diarrhea and no urinary symptoms. The patient denies any urinary symptoms or diarrhea or nausea and vomiting. Patient denies any history of kidney stones. 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: zofran and fentayl Right Lower Abdomen Pain Score (Numeric/FACES): 5 - Related Data Allergies Allergy/AdvReac Type Severity Reaction Status Date / Time No Known Allergies Allergy Verified 07/14/17 18:46 Home Meds: Home Meds Levothyroxine [Synthroid] 75 mcg PO DAILY 02/18/15 [History] Aspirin 81 mg PO DAILY #100 tab.chew 07/05/17 [Rx] Carvedilol [Coreg] 3.125 mg PO BID #60 tablet 07/05/17 [Rx] Clopidogrel [Plavix] 75 mg PO DAILY #30 tablet 07/05/17 [Rx] Lisinopril [Prinivil] 10 mg PO BIDMEALS #60 tablet 07/05/17 [Rx] Hydrochlorothiazide 12.5 mg PO BID #60 cap 07/06/17 [Rx] Dicyclomine [Bentyl] 10 mg PO Q6H PRN #10 cap 07/14/17 [Rx] Past Medical History HEENT History: Reports: Hard of Hearing, Impaired Vision Other HEENT History: wears eyeglasses, has bilateral hearing aides Cardiovascular History: Reports: High Cholesterol, Hypertension Respiratory History: Reports: None Gastrointestinal History: Reports: Hemorrhoids Genitourinary History: Reports: Other (See Below) Other Genitourinary History: hx of leaking urine--resolved 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: Musculoskeletal History: Reports: None Neurological History: Reports: Vertigo, Other (See Below) Other Neuro History: memory deficits Psychiatric History: Reports: Other (See Below) Other Psychiatric History: forgetfull Endocrine/Metabolic History: Reports: Hypothyroidism Hematologic History: Reports: Anemia Dermatologic History: Reports: None - Infectious Disease History Infectious Disease History: Reports: Chicken Pox, Measles, Mumps, Rubella - Past Surgical History HEENT Surgical History: Reports: Cataract Surgery Cardiovascular Surgical History: Reports: None GI Surgical History: Reports: None Social & Family History - Family History Family Medical History: Noncontributory Endocrine/Metabolic: Reports: Diabetes, type II - Tobacco Use Smoking Status *Q: Never Smoker Second Hand Smoke Exposure: No - Caffeine Use Caffeine Use: Reports: Coffee Other Caffeine Use: pot a day - Recreational Drug Use Recreational Drug Use: No - Living Situation & Occupation Living situation: Reports: , Alone Occupation: Retired ED ROS GENERAL - Review of Systems Review Of Systems: See Below Constitutional: Denies: Fever, Chills HEENT: Reports: No Symptoms Respiratory: Reports: No Symptoms Cardiovascular: Reports: No Symptoms Endocrine: Reports: No Symptoms GI/Abdominal: Reports: Abdominal Pain. Denies: Diarrhea, Nausea, Vomiting : Denies: Discharge, Dysuria, Flank Pain Musculoskeletal: Reports: No Symptoms Skin: Reports: No Symptoms Neurological: Reports: Confusion Psychiatric: Reports: No Symptoms Hematologic/Lymphatic: Reports: No Symptoms ED EXAM, GI/ABD - Physical Exam Exam: See Below Exam Limited By: No Limitations General Appearance: Alert, WD/WN, No Apparent Distress Eyes: Bilateral: Normal Appearance Ears: Normal External Exam, Normal Canal, Normal TMs Nose: Normal Inspection Throat/Mouth: Normal Inspection, Normal Lips, Normal Oropharynx, Normal Voice, No Airway Compromise Neck: Supple Respiratory/Chest: No Respiratory Distress, Lungs Clear, Normal Breath Sounds Cardiovascular: Regular Rate, Rhythm, No Murmur GI/Abdominal Exam: Soft, Non-Tender, No Organomegaly, No Distention. No: Guarding, Rigid, Rebound, Tender Back Exam: Full Range of Motion Extremities: Normal Inspection, Normal Range of Motion, No Pedal Edema Neurological: Alert, Normal Cognition Psychiatric: Normal Affect, Normal Mood Skin Exam: Warm, Dry Course - Vital Signs Last Recorded V/S: Last Vital Signs Temp 99.2 F 07/14/17 18:43 Pulse 61 07/14/17 18:43 Resp 18 07/14/17 18:43 BP 170/102 H 07/14/17 18:43 Pulse Ox 100 07/14/17 18:43 - Orders/Labs/Meds Orders: Active Orders 24 hr Category Date Time Status Abdomen 2V AP Flat Upright [CR] Stat Exams 07/14/17 19:12 Taken Labs: Laboratory Tests 07/14/17 07/14/17 07/14/17 Range/Units 19:36 19:36 20:10 WBC 6.04 (3.98-10.04) K/mm3 RBC 4.49 (3.98-5.22) M/mm3 Hgb 14.1 (11.2-15.7) gm/L Hct 40.3 (34.1-44.9) % MCV 89.8 (79.4-94.8) fl MCH 31.4 (25.6-32.2) pg MCHC 35.0 (32.2-35.5) g/dl RDW Std Deviation 41.6 (36.4-46.3) fL Plt Count 204 (182-369) K/mm3 MPV 9.7 (9.4-12.3) fl Neut % (Auto) 70.7 (34.0-71.1) % Lymph % (Auto) 19.4 (19.3-51.7) % [place] % (Auto) 8.6 (4.7-12.5) % Eos % (Auto) 0.3 L (0.7-5.8) Baso % (Auto) 0.7 (0.1-1.2) % Neut # (Auto) 4.27 (1.56-6.13) K/mm3 Lymph # (Auto) 1.17 L (1.18-3.74) K/mm3 [place] # (Auto) 0.52 H (0.24-0.36) K/mm3 Eos # (Auto) 0.02 L (0.04-0.36) K/mm3 Baso # (Auto) 0.04 (0.01-0.08) K/mm3 Sodium 135 L (136-145) mEq/L Potassium 3.2 L (3.5-5.1) mEq/L Chloride 97 L (98-107) mEq/L Carbon Dioxide 27 (21-32) mEq/L Anion Gap 14.2 (5-15) BUN 33 H (7-18) mg/dL Creatinine 1.4 H (0.55-1.02) mg/dL Est Cr Clr Drug Dosing 22.72 mL/min Estimated GFR (MDRD) 36 (>60) mL/min BUN/Creatinine Ratio 23.6 H (14-18) Glucose 103 (83-115) mg/dL Calcium 8.9 (8.5-10.1) mg/dL Total Bilirubin 0.9 (0.2-1.0) mg/dL AST 11 L (15-37) U/L ALT 28 (14-59) U/L Alkaline Phosphatase 61 (46-116) U/L Total Protein 6.8 (6.4-8.2) g/dl Albumin 3.5 (3.4-5.0) g/dl Globulin 3.3 gm/dL Albumin/Globulin Ratio 1.1 (1-2) Urine Color Yellow (Yellow) Urine Appearance Clear (Clear) Urine pH 6.5 (5.0-8.0) Ur Specific [place] 1.015 (1.005-1.030) Urine Protein Negative (Negative) Urine Glucose (UA) Negative (Negative) Urine Ketones 2+ H (Negative) Urine Occult Blood Negative (Negative) Urine Nitrite Negative (Negative) Urine Bilirubin Negative (Negative) Urine Urobilinogen 0.2 (0.2-1.0) Ur Leukocyte Esterase Negative (Negative) Urine RBC 0-5 (0-5) /hpf Urine WBC 0-5 (0-5) /hpf Ur Epithelial Cells 0-5 (0-5) /hpf Urine Bacteria Not seen (FEW) /hpf Urine Mucus Not seen (FEW) /hpf Meds: Medications Discontinued Medications Generic Name Dose Route Start Last Admin Trade Name Freq PRN Reason Stop Dose Admin Magnesium Citrate 300 ml 07/14/17 21:15 07/14/17 21:21 Citrate Of Magnesia PO 07/14/17 21:16 300 ml ONETIME ONE Administration - Radiology Interpretation Free Text/Narrative:: Flat and upright shows a mild ileus with a few air-fluid levels in the small bowel. She does have a large clump of stool in the right lower quadrant noted. - Re-Assessments/Exams Free Text/Narrative Re-Assessment/Exam: 07/14/17 21:12 I spoke to the family regarding the x-ray results as well as the blood work. Her white count is 6 and her urinalysis is completely normal. Her potassium is slightly low and she is to follow-up with her family doctor. I also suggested that they could give her 2 ounces of mag citrate but no more and start her on some Colace daily to help keep her stool soft and her bowels moving. I will also provide a prescription for some Bentyl for the abdominal cramps if they seem to worsen. Departure - Departure Time of Disposition: 21:13 Disposition: Home, Self-Care 01 Condition: Fair Clinical Impression: Obstipation, Abdominal cramps - Discharge Information Prescriptions: Dicyclomine [Bentyl] 10 mg PO Q6H PRN #10 cap PRN Reason: Abdominal Pain Instructions: Abdominal Pain, Adult, [id number] Referrals: Chanel Fletcher MD [Primary Care Provider] - Forms: ED Department Discharge Additional Instructions: Have her drink lots of fluids, take the 2 ounces of the mag citrate when she gets home, use the Bentyl as needed for abdominal cramps, begin her on some Colace twice a day as a stool softener, her potassium is slightly low which can add to the slowing of the bowel and she may need some supplements from her family doctor, recheck the ER if needed - My Orders Last 24 Hours: My Active Orders 07/14/17 19:12 Abdomen 2V AP Flat Upright [CR] Stat - Assessment/Plan Last 24 Hours: My Active Orders 07/14/17 19:12 Abdomen 2V AP Flat Upright [CR] Stat
[2017-07-14] MEDS ORDERED: Magnesium Citrate Solution 296 ML Bottle PO ONE (21:15)
--- NOTE | 2017-07-16 07:56 | CR ---
Abdomen: Supine and upright views of the abdomen were obtained. Comparison: No previous study. Diffuse gas within small bowel or colon is seen which appears within normal limits and does not appear obstructive. Calcifications are seen within the pelvis which are likely due to phleboliths. Bony structures are osteopenic. Heart size is slightly enlarged. No soft tissue abnormality is seen. Impression: 1. Incidental findings. Diagnostic code #2
== END 2017-07-14 21:35 | disposition home or self-care (01) ==
LOC: JD.ED 18:35
DX: K59.00 Constipation, unspecified (principal); E78.00 Pure hypercholesterolemia, unspecified; I10 Essential (primary) hypertension; E03.9 Hypothyroidism, unspecified; Z79.899 Other long term (current) drug therapy; Z79.82 Long term (current) use of aspirin
CPT/HCPCS: 36415; 74019; 80053; 81001; 85025; 99285; A9270

== ENCOUNTER 2017-08-11 02:20 | Emergency (ER) | payer MEDICARE, BC ==
[2017-08-11 02:28] VITALS: BP 166/102
[2017-08-11] MEDS ORDERED: Oxymetazoline 0.05% Nasal Spray 15 ML Bottle NAS ONE (02:35)
--- NOTE | 2017-08-11 02:36 | EDM.PDOC ---
ED HPI GENERAL MEDICAL PROBLEM - General Chief Complaint: ENT Problem Stated Complaint: [facility] Time Seen by Provider: 08/11/17 02:30 Source of Information: Reports: Patient History Limitations: Reports: No Limitations - History of Present Illness INITIAL COMMENTS - FREE TEXT/NARRATIVE: 87-year-old female attends the ED per ambulance from [place] she states that she's had recurrent left-sided nasal bleeding since mid afternoon. She states she awoke with quite a massive bleeding and has been unable to get the nose to stop bleeding. Of note she is on Plavix and but denies taking aspirin any more. She doesn't know why she is on Plavix but I suspect she may have had a stroke in the past. She reports that she did grow out a good size clot when she got to the ED. Nasal clamp was placed. She is swallowing a fair amount of blood as well. 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.) - Related Data Allergies Allergy/AdvReac Type Severity Reaction Status Date / Time No Known Allergies Allergy Verified 07/14/17 18:46 Home Meds: Home Meds Levothyroxine [Synthroid] 75 mcg PO DAILY 02/18/15 [History] Aspirin 81 mg PO DAILY #100 tab.chew 07/05/17 [Rx] Carvedilol [Coreg] 3.125 mg PO BID #60 tablet 07/05/17 [Rx] Clopidogrel [Plavix] 75 mg PO DAILY #30 tablet 07/05/17 [Rx] Lisinopril [Prinivil] 10 mg PO BIDMEALS #60 tablet 07/05/17 [Rx] Hydrochlorothiazide 12.5 mg PO BID #60 cap 07/06/17 [Rx] Dicyclomine [Bentyl] 10 mg PO Q6H PRN #10 cap 07/14/17 [Rx] Bacitracin/Polymyxin B Sulfate [Polysporin Ointment] 15 gm TP DAILY #1 oint...g. 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 History: Reports: None Neurological History: Reports: Vertigo, Other (See Below) Other Neuro History: memory deficits Psychiatric History: Reports: Other (See Below) Other Psychiatric History: forgetfull Endocrine/Metabolic History: Reports: Hypothyroidism Hematologic History: Reports: Anemia Dermatologic History: Reports: None - Infectious Disease History Infectious Disease History: Reports: Chicken Pox, Measles, Mumps, Rubella - Past Surgical History HEENT Surgical History: Reports: Cataract Surgery Cardiovascular Surgical History: Reports: None GI Surgical History: Reports: None Social & Family History - Family History Family Medical History: Noncontributory Endocrine/Metabolic: Reports: Diabetes, type II - Caffeine Use Caffeine Use: Reports: Coffee Other Caffeine Use: pot a day - Living Situation & Occupation Living situation: Reports: , Alone Occupation: Retired ED ROS ENT - Review of Systems Review Of Systems: See Below Constitutional: Reports: Malaise, Weakness, Fatigue, Decreased Appetite (From not being able to sleep). Denies: Fever, Chills HEENT: Reports: Nosebleed (See history of present illness active bleeding from the left naris.) Respiratory: Reports: Shortness of Breath. Denies: Wheezing, Pleuritic Chest Pain, Cough, Sputum Cardiovascular: Reports: Blood Pressure Problem, Dyspnea on Exertion ( Chronically) Endocrine: Reports: Fatigue (Usually controlled with medications) GI/Abdominal: Reports: Diarrhea (Intermittent problems with diarrhea and abdominal cramps.) : Reports: Frequency (Both both urge and stress components), Incontinence Musculoskeletal: Reports: Shoulder Pain (Especially knees and hips and low back and neck at times), Joint Pain Skin: Reports: Bruising ( usually in both shoulders as wellloses easily. ) Neurological: Reports: Confusion (Sometimes.) Psychiatric: Reports: No Symptoms Hematologic/Lymphatic: Reports: No Symptoms ED EXAM, ENT - Physical Exam Exam: See Below Exam Limited By: No Limitations General Appearance: Alert, WD/WN, No Apparent Distress Eye Exam: Bilateral Eye: Normal Inspection Nose: Other (There is blood in the anterior aspect of the right naris but no active bleeding appreciated on the right side left side I removed as much blood as possible with Q-tips but the blood seems to be from the posterior nasal cavity. Cannot see an obvious source of bleeding.) Mouth/Throat: Other (There is blood in the mid and left side of the posterior oropharynx.) Head: Atraumatic, Normocephalic Neck: Normal Inspection, Limited Range of Motion, Tender Lateral. No: Full Range of Motion (Bilateral tenderness to examination) Respiratory/Chest: Lungs Clear, Respiratory Distress (Mild tachypnea at rest.), Decreased Breath Sounds (Breath sounds are diminished in both posterior lung lowery by 25%) Cardiovascular: Regular Rate, Rhythm, No Edema, No Gallop, No Murmur. No: Normal Peripheral Pulses GI/Abdominal: Normal Bowel Sounds, Soft, Non-Tender Back: Other Extremities: Normal Inspection (Mild kyphosis thoracic spine), Normal Range of Motion, Non-Tender, No Pedal Edema, Other Neurological: Alert (Evidence of osteophytic changes of both knees and both hips.), Oriented, CN II-XII Intact, Normal Cognition Psychiatric: Normal Affect Skin: Warm, Dry, Intact, Normal Color, No Rash Course - Vital Signs Last Recorded V/S: Last Vital Signs Temp 36.6 C 08/11/17 02:25 Pulse 77 08/11/17 02:25 Resp 19 08/11/17 02:25 BP 166/102 H 08/11/17 02:25 Pulse Ox 97 08/11/17 02:25 - Orders/Labs/Meds Meds: Medications Discontinued Medications Generic Name Dose Route Start Last Admin Trade Name Freq PRN Reason Stop Dose Admin Cocaine HCl 4 ml 08/11/17 02:35 08/11/17 02:39 Cocaine Hcl TOP 08/11/17 02:36 4 ml ONETIME ONE Administration Oxymetazoline HCl 15 ml 08/11/17 02:35 08/11/17 02:40 Afrin Original 0.05% Nasal [place] LYDIA 08/11/17 02:36 15 ml ONETIME ONE Administration - Radiology Interpretation Free Text/Narrative:: 87-year-old female presents the ED with persistent left-sided nosebleed. There is blood in the right anterior naris. Appears to be coming from the left side. She's also bleeding posteriorly into the oropharynx. On inspection of the left nares I'm not able to ascertain where the site of bleeding is coming from. Plan will be to pack it with saline soaked gauze with cocaine and Afrin to get the bleeding to stop and then have Second Look in 20 minutes or so. - Re-Assessments/Exams Free Text/Narrative Re-Assessment/Exam: 08/11/17 03:05: She still has some blood in the posterior oropharynx. Nasal packing removed from the left side. Entire packing soaked with blood suggesting bleeding source may be posterior. I was able to cleanse most of the naris of using Q-tips. There is a active bleeding site superior anterior naris on the left side. The site was cauterized with silver nitrate stick 2. Patient has a large clot in the left posterior oropharynx which she will gargle and she will can get up. Review her in 15 minutes time 08/11/17 03:25: Upon review the cauterized site shows no active bleeding and there is no further blood in her posterior oropharynx or in the naris. Therefore I cannot identify any further active bleeding. Will review her in a couple of hours. Plan will be for her to stay in the emergency room until her son awakens as he travels up to the [facility] from [facility] every morning. We will call about 5:30 hours this morning .She is quite forgetful with obvious impaired short-term memory. Will turn off the lights and see if she can get some sleep. 08/11/17 04:38 patient is unable to sleep. Around 04 naris she called her daughter who lives here in [facility]. She wondered to come pick her up immediately. Nurse spoke with the daughter and indicated that she was in the ED in that she is just awaiting appropriate time frame to call family members to come in pick her up. This information was relayed to Mark who will come and pick her up around 5:30 hours. No further nose bleeding has occurred. Departure - Departure Time of Disposition: 04:54 Disposition: Home, Self-Care 01 Condition: Fair Clinical Impression: Epistaxis - Discharge Information Prescriptions: Bacitracin/Polymyxin B Sulfate [Polysporin Ointment] 15 gm TP DAILY #1 oint...g. Instructions: Nosebleed, Adult Referrals: Chanel Fletcher MD [Primary Care Provider] - Forms: ED Department Discharge Additional Instructions: Evaluation the emergency room today in regards to significant persistent bleeding from the left nose. It's unclear when this may have started but you indicated that yesterday afternoon. Into the hospital the wee hours of the morning by ambulance from [place]. Examination confirmed active bleeding from the left nares.. A large amount of clot was removed from the posterior aspect of the nose. One area of active bleeding appreciated in anterior naris was first cauterized with silver nitrate and this seemed to provide relief of further bleeding. The exact cause of bleeding is unclear. It is usually due to dry air but may also be due to allergies in the air. Try not to rub the nose her bloat excessively for the next 2 days. Suggest use of Polysporin ointment on the end of a Q-tip into the nose coating the septum over the midline of the nose every night at bedtime for the next week to promote moisture back into the tissue and keep the area off the area to allow it to heal completely. Due to being on blood thinners the nosebleeds much more aggressively than normal. Return to medical care if further nosebleeds occur.
== END 2017-08-11 05:00 | disposition home or self-care (01) ==
LOC: JD.ED 02:20
DX: R04.0 Epistaxis (principal); I10 Essential (primary) hypertension; E78.00 Pure hypercholesterolemia, unspecified; E03.9 Hypothyroidism, unspecified; D64.9 Anemia, unspecified; Z79.899 Other long term (current) drug therapy; Z79.82 Long term (current) use of aspirin
CPT/HCPCS: 30901; 99284; A9270; 99283-25

== ENCOUNTER 2017-11-29 16:22 | Emergency (ER) | payer MEDICARE, BC ==
[2017-11-29] MEDS ORDERED: Sodium Chloride 0.9% 10 ML Syringe FLUSH PRN (16:46)
[2017-11-29] MEDS ORDERED: Sodium Chloride 0.9% 1,000 ML IV ONE (16:46)
--- NOTE | 2017-11-29 16:51 | EDM.PDOC ---
ED HPI GENERAL MEDICAL PROBLEM - General Chief Complaint: General Stated Complaint: [facility] Time Seen by Provider: 11/29/17 16:29 Source of Information: Reports: Patient History Limitations: Reports: Other (Patient is confused ) - History of Present Illness INITIAL COMMENTS - FREE TEXT/NARRATIVE: 87-year-old female arrives via ambulance service. Patient is pleasantly demented and is a very poor historian. She is unsure why she presented to the ER. She is unsure who called the ambulance. She is unsure reasoning behind the ambulance call. At this point she is denying symptoms. She denies any headaches , vision changes, numbness or tingling in extremities, chest pain, shortness of breath, nausea or vomiting. Per EMS. Call the for anxiety and numbness and tingling in bilateral extremities. when they arrived her 12-lead showed EKG changes in the form of age -indeterminate MD. They've her 2 doses of 2.5 mg of Valium. Reportedly her symptoms had resolved. - Related Data Allergies Allergy/AdvReac Type Severity Reaction Status Date / Time No Known Allergies Allergy Verified 11/29/17 16:27 Home Meds: Home Meds Levothyroxine [Synthroid] 75 mcg PO DAILY 02/18/15 [History] Aspirin 81 mg PO DAILY #100 tab.chew 07/05/17 [Rx] Carvedilol [Coreg] 3.125 mg PO BID #60 tablet 07/05/17 [Rx] Clopidogrel [Plavix] 75 mg PO DAILY #30 tablet 07/05/17 [Rx] Lisinopril [Prinivil] 10 mg PO BIDMEALS #60 tablet 07/05/17 [Rx] hydroCHLOROthiazide [Hydrochlorothiazide] 12.5 mg PO BID #60 cap 07/06/17 [Rx] Dicyclomine [Bentyl] 10 mg PO Q6H PRN #10 cap 07/14/17 [Rx] Bacitracin/Polymyxin B Sulfate [Polysporin Ointment] 15 gm TP DAILY #1 oint...g. 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: Musculoskeletal History: Reports: None Neurological History: Reports: Vertigo, Other (See Below) Other Neuro History: memory deficits Psychiatric History: Reports: Other (See Below) Other Psychiatric History: forgetfull Endocrine/Metabolic History: Reports: Hypothyroidism Hematologic History: Reports: Anemia Dermatologic History: Reports: None - Infectious Disease History Infectious Disease History: Reports: Chicken Pox, Measles, Mumps, Rubella - Past Surgical History HEENT Surgical History: Reports: Cataract Surgery Cardiovascular Surgical History: Reports: None GI Surgical History: Reports: None Social & Family History - Family History Family Medical History: Noncontributory Endocrine/Metabolic: Reports: Diabetes, type II - Tobacco Use Smoking Status *Q: Never Smoker - Caffeine Use Caffeine Use: Reports: Coffee Other Caffeine Use: pot a day - Recreational Drug Use Recreational Drug Use: No - Living Situation & Occupation Living situation: Reports: , Alone Occupation: Retired ED ROS GENERAL - Review of Systems Review Of Systems: See Below Constitutional: Denies: Fever, Chills, Weakness Respiratory: Denies: Shortness of Breath, Cough Cardiovascular: Denies: Chest Pain GI/Abdominal: Denies: Abdominal Pain, Nausea, Vomiting Neurological: Denies: Headache, Numbness, Tingling, Weakness ED EXAM, GENERAL - Physical Exam Exam: See Below Exam Limited By: Physical Impairment (Patient has dementia) General Appearance: Alert, WD/WN, No Apparent Distress, Thin Eye Exam: Bilateral Eye: EOMI, Normal Inspection, PERRL Ears: Normal External Exam Nose: Normal Inspection Throat/Mouth: Normal Inspection, Normal Lips, Normal Voice, No Airway Compromise Respiratory/Chest: No Respiratory Distress, Lungs Clear, Normal Breath Sounds Cardiovascular: Normal Peripheral Pulses, Regular Rate, Rhythm, No Murmur Neurological: Alert, Oriented, CN II-XII Intact, Normal Cognition, Other ([place] strength 5 out of 5 bilaterally, dorsiflexion and plantar flexion 5 out of 5 bilaterally. Normal [id number] testing. No pronator drift. Nchg-ir-egzh testing. Smile symmetric. No slurred speech.) Psychiatric: Normal Affect, Normal Mood Skin Exam: Warm, Dry, Normal Color EKG INTERPRETATION EKG Date: 11/29/17 Time: 16:25 Rhythm: NSR Rate (Beats/Min): 64 [place]: Normal P-Wave: Present QRS: Normal ST-T: Depressed (mild V5 and V6) QT: Normal EKG Interpretation Comments: NSR at 64. First degree AV block. Q waves V1 and V2 -old anterior septal MD. Mild ST depression V5 and V6. Decreased voltage limb leads. Occasional PAC. Left axis deviation, -39, QT is mildly prolonged with a QTC of 461. Reviewed by myself and Dr. Patel. Course - Vital Signs Last Recorded V/S: Last Vital Signs Temp 97.1 F 11/29/17 20:11 Pulse 75 11/29/17 20:11 Resp 20 11/29/17 20:11 BP 169/105 H 11/29/17 20:11 Pulse Ox 96 11/29/17 20:11 - Orders/Labs/Meds Orders: Active Orders 24 hr Category Date Time Status Cardiac Monitoring [RC] . DIRECTED Care 11/29/17 16:47 Active EKG 12 Lead [EKG Documentation Completion] [RC] STAT Care 11/29/17 16:45 Active Insert Currie Catheter [Insert Urinary Catheter] [OM.PC] Care 11/29/17 17:45 Ordered Q24H Peripheral IV Care [RC] . DIRECTED Care 11/29/17 16:46 Active Urinary Catheter Assessment [RC] ASDIRECTED Care 11/29/17 17:35 Active Chest 1V Frontal [CR] Stat Exams 11/29/17 16:45 Taken Peripheral IV Insertion Adult [OM.PC] Routine Oth 11/29/17 16:46 Ordered Labs: Laboratory Tests 11/29/17 11/29/17 11/29/17 Range/Units 17:17 17:17 17:17 WBC 5.86 (3.98-10.04) K/mm3 RBC 4.41 (3.98-5.22) M/mm3 Hgb 14.2 (11.2-15.7) gm/L Hct 38.7 (34.1-44.9) % MCV 87.8 (79.4-94.8) fl MCH 32.2 (25.6-32.2) pg MCHC 36.7 H (32.2-35.5) g/dl RDW Std Deviation 39.0 (36.4-46.3) fL Plt Count 236 (182-369) K/mm3 MPV 9.2 L (9.4-12.3) fl Neut % (Auto) 65.3 (34.0-71.1) % Lymph % (Auto) 24.7 (19.3-51.7) % [place] % (Auto) 8.5 (4.7-12.5) % Eos % (Auto) 0.7 (0.7-5.8) Baso % (Auto) 0.5 (0.1-1.2) % Neut # (Auto) 3.82 (1.56-6.13) K/mm3 Lymph # (Auto) 1.45 (1.18-3.74) K/mm3 [place] # (Auto) 0.50 H (0.24-0.36) K/mm3 Eos # (Auto) 0.04 (0.04-0.36) K/mm3 Baso # (Auto) 0.03 (0.01-0.08) K/mm3 Manual Slide Review Normal smear Sodium 129 L (136-145) mEq/L Potassium 2.6 L (3.5-5.1) mEq/L Chloride 94 L (98-107) mEq/L Carbon Dioxide 29 (21-32) mEq/L Anion Gap 8.6 (5-15) BUN 16 (7-18) mg/dL Creatinine 1.1 H (0.55-1.02) mg/dL Est Cr Clr Drug Dosing 33.03 mL/min Estimated GFR (MDRD) 47 (>60) mL/min BUN/Creatinine Ratio 14.5 (14-18) Glucose 90 (83-115) mg/dL Calcium 9.4 (8.5-10.1) mg/dL Magnesium 1.7 L (1.8-2.4) mg/dl Total Bilirubin 0.7 (0.2-1.0) mg/dL AST 22 (15-37) U/L ALT 13 L (14-59) U/L Alkaline Phosphatase 62 (46-116) U/L CK-MB (CK-2) 1.3 (0-3.6) ng/ml Troponin I 0.096 H* (0.00-0.056) ng/mL C-Reactive Protein < 0.2 (<1.0) mg/dL Total Protein 7.1 (6.4-8.2) g/dl Albumin 3.4 (3.4-5.0) g/dl Globulin 3.7 gm/dL Albumin/Globulin Ratio 0.9 L (1-2) TSH 3rd Generation 5.631 H (0.358-3.74) uIU/mL Urine Color (Yellow) Urine Appearance (Clear) Urine pH (5.0-8.0) Ur Specific [place] (1.005-1.030) Urine Protein (Negative) Urine Glucose (UA) (Negative) Urine Ketones (Negative) Urine Occult Blood (Negative) Urine Nitrite (Negative) Urine Bilirubin (Negative) Urine Urobilinogen (0.2-1.0) Ur Leukocyte Esterase (Negative) Urine RBC (0-5) /hpf Urine WBC (0-5) /hpf Ur Epithelial Cells (0-5) /hpf Ur Squamous Epith Cells (0-5) /hpf Urine Bacteria (FEW) /hpf Hyaline Casts (0-5) /lpf Waxy Casts (0-5) /lpf Urine Mucus (FEW) /hpf 11/29/17 Range/Units 17:30 WBC (3.98-10.04) K/mm3 RBC (3.98-5.22) M/mm3 Hgb (11.2-15.7) gm/L Hct (34.1-44.9) % MCV (79.4-94.8) fl MCH (25.6-32.2) pg MCHC (32.2-35.5) g/dl RDW Std Deviation (36.4-46.3) fL Plt Count (182-369) K/mm3 MPV (9.4-12.3) fl Neut % (Auto) (34.0-71.1) % Lymph % (Auto) (19.3-51.7) % [place] % (Auto) (4.7-12.5) % Eos % (Auto) (0.7-5.8) Baso % (Auto) (0.1-1.2) % Neut # (Auto) (1.56-6.13) K/mm3 Lymph # (Auto) (1.18-3.74) K/mm3 [place] # (Auto) (0.24-0.36) K/mm3 Eos # (Auto) (0.04-0.36) K/mm3 Baso # (Auto) (0.01-0.08) K/mm3 Manual Slide Review Sodium (136-145) mEq/L Potassium (3.5-5.1) mEq/L Chloride (98-107) mEq/L Carbon Dioxide (21-32) mEq/L Anion Gap (5-15) BUN (7-18) mg/dL Creatinine (0.55-1.02) mg/dL Est Cr Clr Drug Dosing mL/min Estimated GFR (MDRD) (>60) mL/min BUN/Creatinine Ratio (14-18) Glucose (83-115) mg/dL Calcium (8.5-10.1) mg/dL Magnesium (1.8-2.4) mg/dl Total Bilirubin (0.2-1.0) mg/dL AST (15-37) U/L ALT (14-59) U/L Alkaline Phosphatase (46-116) U/L CK-MB (CK-2) (0-3.6) ng/ml Troponin I (0.00-0.056) ng/mL C-Reactive Protein (<1.0) mg/dL Total Protein (6.4-8.2) g/dl Albumin (3.4-5.0) g/dl Globulin gm/dL Albumin/Globulin Ratio (1-2) TSH 3rd Generation (0.358-3.74) uIU/mL Urine Color Yellow (Yellow) Urine Appearance Clear (Clear) Urine pH 7.5 (5.0-8.0) Ur Specific [place] 1.020 (1.005-1.030) Urine Protein Negative (Negative) Urine Glucose (UA) Negative (Negative) Urine Ketones Negative (Negative) Urine Occult Blood Negative (Negative) Urine Nitrite Negative (Negative) Urine Bilirubin Negative (Negative) Urine Urobilinogen 1.0 (0.2-1.0) Ur Leukocyte Esterase Negative (Negative) Urine RBC 0-5 (0-5) /hpf Urine WBC 0-5 (0-5) /hpf Ur Epithelial Cells Not seen (0-5) /hpf Ur Squamous Epith Cells Not seen (0-5) /hpf Urine Bacteria Not seen (FEW) /hpf Hyaline Casts 0-5 (0-5) /lpf Waxy Casts 0-5 (0-5) /lpf Urine Mucus Few (FEW) /hpf Meds: Medications Discontinued Medications Generic Name Dose Route Start Last Admin Trade Name Nathan PRN Reason Stop Dose Admin Sodium Chloride 1,000 mls @ 100 mls/hr 11/29/17 16:46 11/29/17 17:22 Normal Saline IV 11/30/17 02:45 100 mls/hr ONETIME ONE Administration Potassium Chloride 10 meq/ 100 mls @ 100 mls/hr 11/29/17 18:15 11/29/17 18:17 Premix IV 100 mls/hr ASDIRECTED [place] Administration Potassium Chloride 20 meq 11/29/17 19:44 11/29/17 20:00 Klor-Con M20 PO 11/29/17 19:45 20 meq ONETIME ONE Administration Sodium Chloride 10 ml 11/29/17 16:46 11/29/17 17:22 Saline Flush FLUSH 10 ml ASDIRECTED PRN Administration Keep Vein Open - Radiology Interpretation Free Text/Narrative:: Head CT Technique: Multiple axial sections through the brain were obtained. Intravenous contrast was not utilized. Comparison: Prior intracranial imaging of 07/03/17. Findings: Ventricles along the basal cisterns and sulci over the convexities are moderately prominent. Diminished density is noted within the periventricular and subcortical white matter compatible small vessel ischemic demyelination change. Findings are fairly stable from prior exam. Similar change is seen within portions of the basal ganglia. Atherosclerotic calcification is noted within the left vertebral vessel and within portions of the carotid siphon. Bone window settings were reviewed which shows no acute calvarial abnormality. Visualized sinuses are clear. Impression: 1. Senescent change as noted above. Nothing acute is appreciated on noncontrast head CT study. No significant change is appreciated from prior CT exam. 1 view chest x-ray shows cardiomegaly and emphysematous changes. No acute intrathoracic process. - Re-Assessments/Exams Free Text/Narrative Re-Assessment/Exam: 11/29/17 19:33 Discussed the labs, EKG and imaging with the patient and her family who have presented to the ER. Family reports she called EMS. No one was home with her when she called EMS. They were also told it was called for numbness and tingling in the extremities but they are unable to further elaborate as to why she called the ambulance. As stated when the patient arrived she was confused and she did not know that she called the ambulance herself and she was denying any symptoms. At this point the patient anxious to go. Educated it would be appropriate for her to come into hospital for management of her hypokalemia and hyponatremia. Patient and family are declining. They're declining a lab draw to recheck potassium at this point. I will put her on some by mouth potassium and recommend close follow-up in the clinic. They're to return to the ER for symptoms change or worsen. Discharge instructions as documented. Departure - Departure Time of Disposition: 19:45 Disposition: Home, Self-Care 01 Condition: Fair Clinical Impression: Hyponatremia, Hypokalemia, Elevated troponin, Hypothyroid Alzheimer disease Qualifiers: Alzheimer's disease onset: unspecified onset Dementia behavioral disturbance: without behavioral disturbance Qualified Code(s): G30.9 - Alzheimer's disease, unspecified - Discharge Information *PRESCRIPTION DRUG MONITORING PROGRAM REVIEWED*: No *COPY OF PRESCRIPTION DRUG MONITORING REPORT IN PATIENT BHAVIN: No Prescriptions: Potassium Chloride 10 meq PO DAILY #5 capsule.er Instructions: Hyponatremia, Hypokalemia Referrals: PCP,None [Primary Care Provider] - Chanel Fletcher MD [Consulting Physician] - Forms: ED Department Discharge Additional Instructions: Take the potassium as prescribed. 1 tab daily. you were given some in the ER tonight. Start your prescription tomorrow. Increase your salt intake as your sodium was low today. Recommend drinking Gatorade or Powerade in addition to water to help prevent hyponatremia or low sodium. Your TSH or thyroid stimulating hormone was elevated in the ER tonight. This can indicate that you may need adjustments in your thyroid medication. Follow- up with your primary care provider to have additional thyroid test and adjust your thyroid medication as needed. Follow-up with your primary care provider on Monday or Monday for recheck of your sodium and potassium. Please return to the ER if your symptoms change or worsen. - My Orders Last 24 Hours: My Active Orders 11/29/17 16:45 EKG 12 Lead [EKG Documentation Completion] [RC] STAT Chest 1V Frontal [CR] Stat 11/29/17 16:46 Peripheral IV Care [RC] . DIRECTED Peripheral IV Insertion Adult [OM.PC] Routine 11/29/17 16:47 Cardiac Monitoring [RC] . DIRECTED 11/29/17 17:35 Urinary Catheter Assessment [RC] ASDIRECTED 11/29/17 17:45 Insert Currie Catheter [Insert Urinary Catheter] [OM.PC] Q24H - Assessment/Plan Last 24 Hours: My Active Orders 11/29/17 16:45 EKG 12 Lead [EKG Documentation Completion] [RC] STAT Chest 1V Frontal [CR] Stat 11/29/17 16:46 Peripheral IV Care [RC] . DIRECTED Peripheral IV Insertion Adult [OM.PC] Routine 11/29/17 16:47 Cardiac Monitoring [RC] . DIRECTED 11/29/17 17:35 Urinary Catheter Assessment [RC] ASDIRECTED 11/29/17 17:45 Insert Currie Catheter [Insert Urinary Catheter] [OM.PC] Q24H
--- NOTE | 2017-11-29 17:27 | CT ---
Head CT Technique: Multiple axial sections through the brain were obtained. Intravenous contrast was not utilized. Comparison: Prior intracranial imaging of 07/03/17. Findings: Ventricles along the basal cisterns and sulci over the convexities are moderately prominent. Diminished density is noted within the periventricular and subcortical white matter compatible small vessel ischemic demyelination change. Findings are fairly stable from prior exam. Similar change is seen within portions of the basal ganglia. Atherosclerotic calcification is noted within the left vertebral vessel and within portions of the carotid siphon. Bone window settings were reviewed which shows no acute calvarial abnormality. Visualized sinuses are clear. Impression: 1. Senescent change as noted above. Nothing acute is appreciated on noncontrast head CT study. No significant change is appreciated from prior CT exam. Diagnostic code #2
[2017-11-29] MEDS ORDERED: Potassium Chloride 10 MEQ in Premix Bag 1 BAG IV SCH (18:15)
[2017-11-29] MEDS ORDERED: Potassium Chloride 20 MEQ Tab.ER PO ONE (19:44)
[2017-11-29 20:13] VITALS: BP 169/105
--- NOTE | 2017-11-30 11:02 | CR ---
Chest: Portable view of the chest was obtained. Comparison: Prior chest x-ray of 07/04/17. Heart size at the upper limits of normal. Upper mediastinum is within normal limits. Lungs are clear with no acute parenchymal change. Lungs are hyperinflated compatible with emphysematous change. Impression: 1. Heart is slightly enlarged. Emphysematous change. 2. Nothing acute is appreciated on portable chest x-ray. Diagnostic code #2
== END 2017-11-29 20:00 | disposition home or self-care (01) ==
LOC: JD.ED 16:22
DX: G30.9 Alzheimer's disease, unspecified (principal); E87.1 Hypo-osmolality and hyponatremia; E87.6 Hypokalemia; R79.89 Other specified abnormal findings of blood chemistry; E03.9 Hypothyroidism, unspecified; I10 Essential (primary) hypertension; Z79.899 Other long term (current) drug therapy; Z79.82 Long term (current) use of aspirin
CPT/HCPCS: 36415; 70450; 71045; 80053; 81001; 82553; 83735; 84443; 84484; 85025; 86140; 93005; 96361; 96365; 99285; A9270; J3480; J7040; J7050

== ENCOUNTER 2018-06-12 13:08 | Emergency (ER) | payer MEDICARE, BC ==
[2018-06-12 13:29] VITALS: BP 126/78
[2018-06-12] MEDS ORDERED: Sodium Chloride 0.9% 10 ML Syringe FLUSH PRN (13:32)
--- NOTE | 2018-06-12 13:32 | EDM.PDOC ---
ED HPI GENERAL MEDICAL PROBLEM - General Chief Complaint: Cardiovascular Problem Stated Complaint: [facility] Time Seen by Provider: 06/12/18 13:14 Source of Information: Reports: Patient, EMS, RN Notes Reviewed - History of Present Illness INITIAL COMMENTS - FREE TEXT/NARRATIVE: 88 year old female has been brought here by [facility] after suffering brief syncopal event. She lives at [facility] living. Was at the lunch table having lunch, became unresponsive. Awake but mildly hypotensive and bradycardic upon EMS arrival. Now asymptomatic on arrival to ED. Pt does have hx of dementia, she does not remember the incident. - Related Data Allergies Allergy/AdvReac Type Severity Reaction Status Date / Time No Known Allergies Allergy Verified 06/12/18 13:28 Home Meds: Home Meds Levothyroxine [Synthroid] 75 mcg PO DAILY 02/18/15 [History] Aspirin 81 mg PO DAILY #100 tab.chew 07/05/17 [Rx] Clopidogrel [Plavix] 75 mg PO DAILY #30 tablet 07/05/17 [Rx] hydroCHLOROthiazide [Hydrochlorothiazide] 12.5 mg PO BID #60 cap 07/06/17 [Rx] Carvedilol [Coreg] 6.25 mg PO BID 06/12/18 [History] Cyanocobalamin (Vitamin B12) [Vitamin B12] 1,000 mcg PO DAILY 06/12/18 [History] Docusate Sodium 200 mg PO DAILY PRN 06/12/18 [History] Lisinopril [Prinivil] 20 mg PO DAILY 06/12/18 [History] Memantine [Namenda] 10 mg PO BID 06/12/18 [History] Omeprazole 20 mg PO DAILY 06/12/18 [History] Sertraline [Zoloft] 25 mg PO DAILY 06/12/18 [History] Past Medical History HEENT History: Reports: Hard of Hearing, Impaired Vision Other HEENT History: wears eyeglasses, has bilateral hearing aides Cardiovascular History: Reports: High Cholesterol, Hypertension Respiratory History: Reports: None Gastrointestinal History: Reports: Hemorrhoids Genitourinary History: Reports: Other (See Below) Other Genitourinary History: hx of leaking urine--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 History: Reports: None Neurological History: Reports: Vertigo, Other (See Below) Other Neuro History: memory deficits Psychiatric History: Reports: Other (See Below) Other Psychiatric History: forgetfull Endocrine/Metabolic History: Reports: Hypothyroidism Hematologic History: Reports: Anemia Dermatologic History: Reports: None - Infectious Disease History Infectious Disease History: Reports: Chicken Pox, Measles, Mumps, Rubella - Past Surgical History HEENT Surgical History: Reports: Cataract Surgery Cardiovascular Surgical History: Reports: None GI Surgical History: Reports: None Social & Family History - Family History Family Medical History: Noncontributory Endocrine/Metabolic: Reports: Diabetes, type II - Caffeine Use Caffeine Use: Reports: Coffee Other Caffeine Use: pot a day - Living Situation & Occupation Living situation: Reports: , Alone Occupation: Retired ED ROS GENERAL - Review of Systems Review Of Systems: See Below (ptatient has dementia, does not remember incident) Constitutional: Reports: Diaphoresis (gone). Denies: Fever, Chills HEENT: Denies: Throat Pain Respiratory: Denies: Shortness of Breath Cardiovascular: Denies: Chest Pain GI/Abdominal: Denies: Vomiting Neurological: Reports: Dizziness (gone). Denies: Headache ED EXAM, GENERAL - Physical Exam Exam: See Below General Appearance: Alert, No Apparent Distress Nose: Normal Inspection Throat/Mouth: Normal Inspection Head: Atraumatic Neck: Supple Respiratory/Chest: No Respiratory Distress, Lungs Clear, Normal Breath Sounds Cardiovascular: Regular Rate, Rhythm GI/Abdominal: Soft, Non-Tender Extremities: Normal Inspection, Normal Range of Motion. No: Pedal Edema, Leg Pain Neurological: Alert, No Motor/Sensory Deficits, Confused (no short term memory) , Other (she does answer questions, does obey commands) EKG INTERPRETATION EKG Date: 06/12/18 Rhythm: Other (one PVC) [place]: Normal P-Wave: Present QRS: Normal ST-T: Normal Course - Vital Signs Last Recorded V/S: Last Vital Signs Temp 97.9 F 06/12/18 13:20 Pulse 65 06/12/18 13:20 Resp 16 06/12/18 13:20 BP 126/78 06/12/18 13:20 Pulse Ox 96 06/12/18 13:20 - Orders/Labs/Meds Orders: Active Orders 24 hr Category Date Time Status EKG 12 Lead [EKG Documentation Completion] [RC] STAT Care 06/12/18 13:33 Active Peripheral IV Care [RC] . DIRECTED Care 06/12/18 13:33 Active Peripheral IV Insertion Adult [OM.PC] Stat Oth 06/12/18 13:33 Ordered Labs: Laboratory Tests 06/12/18 06/12/18 06/12/18 Range/Units 13:45 13:45 15:20 WBC 5.88 (3.98-10.04) K/mm3 RBC 4.62 (3.98-5.22) M/mm3 Hgb 14.3 (11.2-15.7) gm/L Hct 42.3 (34.1-44.9) % MCV 91.6 (79.4-94.8) fl MCH 31.0 (25.6-32.2) pg MCHC 33.8 (32.2-35.5) g/dl RDW Std Deviation 47.2 H (36.4-46.3) fL Plt Count 204 (182-369) K/mm3 MPV 9.5 (9.4-12.3) fl Neut % (Auto) 66.4 (34.0-71.1) % Lymph % (Auto) 21.1 (19.3-51.7) % [place] % (Auto) 10.4 (4.7-12.5) % Eos % (Auto) 0.9 (0.7-5.8) Baso % (Auto) 1.0 (0.1-1.2) % Neut # (Auto) 3.91 (1.56-6.13) K/mm3 Lymph # (Auto) 1.24 (1.18-3.74) K/mm3 [place] # (Auto) 0.61 H (0.24-0.36) K/mm3 Eos # (Auto) 0.05 (0.04-0.36) K/mm3 Baso # (Auto) 0.06 (0.01-0.08) K/mm3 Sodium 138 (136-145) mEq/L Potassium 3.5 (3.5-5.1) mEq/L Chloride 103 (98-107) mEq/L Carbon Dioxide 27 (21-32) mEq/L Anion Gap 11.5 (5-15) BUN 16 (7-18) mg/dL Creatinine 1.3 H (0.55-1.02) mg/dL Est Cr Clr Drug Dosing 27.29 mL/min Estimated GFR (MDRD) 39 (>60) mL/min BUN/Creatinine Ratio 12.3 L (14-18) Glucose 87 (83-115) mg/dL Calcium 8.8 (8.5-10.1) mg/dL Total Bilirubin 0.6 (0.2-1.0) mg/dL AST 20 (15-37) U/L ALT 17 (14-59) U/L Alkaline Phosphatase 75 (46-116) U/L Troponin I 0.107 H* 0.099 H* (0.00-0.056) ng/mL Total Protein 6.9 (6.4-8.2) g/dl Albumin 3.3 L (3.4-5.0) g/dl Globulin 3.6 gm/dL Albumin/Globulin Ratio 0.9 L (1-2) Meds: Medications Discontinued Medications Generic Name Dose Route Start Last Admin Trade Name Freq PRN Reason Stop Dose Admin Sodium Chloride 500 mls @ 999 mls/hr 06/12/18 13:34 06/12/18 13:43 Normal Saline IV 06/12/18 14:04 999 mls/hr .BOLUS ONE Administration Sodium Chloride 10 ml 06/12/18 13:32 06/12/18 13:43 Saline Flush FLUSH 10 ml ASDIRECTED PRN Administration Keep Vein Open - Re-Assessments/Exams Free Text/Narrative Re-Assessment/Exam: 06/12/18 20:08 initial troponin, other labs normal, repeat trop. also normal. Vitals have been stable, pleasantly confused, No unusual sx or findings while here in the ED. Discharge instr. as documented. Departure - Departure Time of Disposition: 16:46 Disposition: Home, Self-Care 01 Condition: Fair Clinical Impression: Syncope Qualifiers: Syncope type: vasovagal syncope Qualified Code(s): R55 - Syncope and collapse Instructions: Syncope, [id number] Referrals: Patito Vargas MD [Primary Care Provider] - Forms: ED Department Discharge Additional Instructions: drink plenty of water to maintain hydration, continue current medications as prescribed. See your regular medical provider in about 5 to 7 days for recheck , return to ED as needed if symptoms worsening in any way. - My Orders Last 24 Hours: My Active Orders 06/12/18 13:33 EKG 12 Lead [EKG Documentation Completion] [RC] STAT Peripheral IV Care [RC] . DIRECTED Peripheral IV Insertion Adult [OM.PC] Stat - Assessment/Plan Last 24 Hours: My Active Orders 06/12/18 13:33 EKG 12 Lead [EKG Documentation Completion] [RC] STAT Peripheral IV Care [RC] . DIRECTED Peripheral IV Insertion Adult [OM.PC] Stat
[2018-06-12] MEDS ORDERED: Sodium Chloride 0.9% 500 ML IV ONE (13:34)
== END 2018-06-12 17:06 | disposition home or self-care (01) ==
LOC: JD.ED 13:08
DX: R55 Syncope and collapse (principal); E78.00 Pure hypercholesterolemia, unspecified; I10 Essential (primary) hypertension; E03.9 Hypothyroidism, unspecified; Z79.899 Other long term (current) drug therapy; Z79.82 Long term (current) use of aspirin
CPT/HCPCS: 36415; 80053; 84484; 85025; 93005; 96360; 99284; J7040; 93010; 99283

== ENCOUNTER 2018-07-16 08:24 | Emergency (ER) | payer MEDICARE, BC ==
[2018-07-16 08:36] VITALS: BP 160/93
[2018-07-16] MEDS ORDERED: Sodium Chloride 0.9% 10 ML Syringe FLUSH PRN (08:50)
[2018-07-16] MEDS ORDERED: Sodium Chloride 0.9% 500 ML IV SCH (09:00)
--- NOTE | 2018-07-16 10:03 | EDM.PDOC ---
ED HPI GENERAL MEDICAL PROBLEM - General Chief Complaint: Syncope Stated Complaint: [facility] Time Seen by Provider: 07/16/18 08:40 Source of Information: Reports: Patient, EMS History Limitations: Reports: No Limitations - History of Present Illness INITIAL COMMENTS - FREE TEXT/NARRATIVE: The patient presents by [facility] for a syncopal episode. She lives at [facility] and she went to the [place] room to eat and she was sitting at the table and she passed out. She had no seizure activity. She was out for a few seconds. Her blood pressure there was in the 90s systolic. When EMS arrived her BP was around 115 systolic. She has no complaints such as fever, chills, cough, congestion, runny nose, chest pain, shortness of breath, abdominal pain, nausea or vomiting. She has no dysuria or diarrhea. This has happened a few times in the past. She has had no changes in her medications as far as she knows. The patient has swelling and ecchymosis to the left side of her face. She said she hit a cupboard a few days ago. 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, Other (see below) Other Treatments LICENSING ENGINEER: NS - Related Data Allergies Allergy/AdvReac Type Severity Reaction Status Date / Time No Known Allergies Allergy Verified 07/16/18 08:38 Home Meds: Home Meds Levothyroxine [Synthroid] 75 mcg PO DAILY 02/18/15 [History] Aspirin 81 mg PO DAILY #100 tab.chew 07/05/17 [Rx] Clopidogrel [Plavix] 75 mg PO DAILY #30 tablet 07/05/17 [Rx] hydroCHLOROthiazide [Hydrochlorothiazide] 12.5 mg PO BID #60 cap 07/06/17 [Rx] Carvedilol [Coreg] 6.25 mg PO BID 06/12/18 [History] Cyanocobalamin (Vitamin B12) [Vitamin B12] 1,000 mcg PO DAILY 06/12/18 [History] Docusate Sodium 200 mg PO DAILY PRN 06/12/18 [History] Lisinopril [Prinivil] 20 mg PO DAILY 06/12/18 [History] Memantine [Namenda] 10 mg PO BID 06/12/18 [History] Omeprazole 20 mg PO DAILY 06/12/18 [History] Sertraline [Zoloft] 25 mg PO DAILY 06/12/18 [History] Past Medical History HEENT History: Reports: Hard of Hearing, Impaired Vision Other HEENT History: wears eyeglasses, has bilateral hearing aides Cardiovascular History: Reports: High Cholesterol, Hypertension Respiratory History: Reports: None Gastrointestinal History: Reports: Hemorrhoids Genitourinary History: Reports: Other (See Below) Other Genitourinary History: hx of leaking urine--resolved SUPPORTABILITY ENGINEER History: Reports: Musculoskeletal History: Reports: None Neurological History: Reports: Vertigo, Other (See Below) Other Neuro History: memory deficits Psychiatric History: Reports: Other (See Below) Other Psychiatric History: forgetfull Endocrine/Metabolic History: Reports: Hypothyroidism Hematologic History: Reports: Anemia Dermatologic History: Reports: None - Infectious Disease History Infectious Disease History: Reports: Chicken Pox, Measles, Mumps, Rubella - Past Surgical History HEENT Surgical History: Reports: Cataract Surgery Cardiovascular Surgical History: Reports: None GI Surgical History: Reports: None Social & Family History - Family History Family Medical History: Noncontributory Endocrine/Metabolic: Reports: Diabetes, type II - Tobacco Use Smoking Status *Q: Never Smoker - Caffeine Use Caffeine Use: Reports: Coffee Other Caffeine Use: pot a day - Living Situation & Occupation Living situation: Reports: , Alone Occupation: Retired ED [facility] [employer] [facility] - Review of Systems Review Of Systems: See Below Constitutional: Reports: No Symptoms HEENT: Reports: No Symptoms Respiratory: Reports: No Symptoms Cardiovascular: Reports: Syncope. Denies: Chest Pain Endocrine: Reports: No Symptoms GI/Abdominal: Reports: No Symptoms : Reports: No Symptoms Musculoskeletal: Reports: No Symptoms Skin: Reports: Other (Ecchymosis and swelling to the left side of her face) Neurological: Reports: No Symptoms - Physical Exam Exam: See Below Exam Limited By: No Limitations General Appearance: Alert, No Apparent Distress Ears: Normal External Exam Nose: Normal Inspection Head Exam: Normocephalic, Other (Ecchymosis and edema to the left side of her face) Neck: Normal Inspection, Supple, Non-Tender Respiratory/Chest: No Respiratory Distress, Lungs Clear, Normal Breath Sounds Cardiovascular: Regular Rate, Rhythm, No Edema, No Murmur GI/Abdominal: Soft, Non-Tender, No Organomegaly, No Mass Neuro Exam (Abbreviated): Alert, Oriented, No Motor/Sensory Deficits EKG INTERPRETATION EKG Date: 07/16/18 Time: 08:34 Rhythm: NSR Rate (Beats/Min): 60 Butler: LAD-Left Butler Deviation P-Wave: Present QRS: Normal ST-T: Normal QT: Normal WV/PQ Interval: 1st degree HB EKG Interpretation Comments: Q waves in the the anterior leads Course - Vital Signs Last Recorded V/S: Last Vital Signs Temp 97.9 F 07/16/18 08:33 Pulse 58 L 07/16/18 08:33 Resp 16 07/16/18 08:33 BP 160/93 H 07/16/18 08:33 Pulse Ox 97 07/16/18 08:33 - Orders/Labs/Meds Orders: Active Orders 24 hr Category Date Time Status Cardiac Monitoring [RC] . DIRECTED Care 07/16/18 08:50 Active EKG Documentation Completion [RC] STAT Care 07/16/18 08:52 Active Peripheral IV Care [RC] . DIRECTED Care 07/16/18 08:51 Active Sodium Chloride 0.9% [Normal Saline] 500 ml Med 07/16/18 09:00 Active IV .BOLUS Sodium Chloride 0.9% [Saline Flush] Med 07/16/18 08:50 Active 10 ml FLUSH ASDIRECTED PRN Peripheral IV Insertion Adult [OM.PC] Stat Oth 07/16/18 08:50 Ordered Medication Orders Sodium Chloride (Normal Saline) 500 mls @ 1,000 mls/hr IV .BOLUS [place] Last Admin: 07/16/18 09:03 Dose: 1,000 mls/hr Sodium Chloride (Saline Flush) 10 ml FLUSH ASDIRECTED PRN PRN Reason: Keep Vein Open Last Admin: 07/16/18 09:04 Dose: 10 ml Labs: Laboratory Tests 07/16/18 07/16/18 07/16/18 Range/Units 09:25 09:25 10:05 WBC 5.56 (3.98-10.04) K/mm3 RBC 4.74 (3.98-5.22) M/mm3 Hgb 14.7 (11.2-15.7) gm/L Hct 43.4 (34.1-44.9) % MCV 91.6 (79.4-94.8) fl MCH 31.0 (25.6-32.2) pg MCHC 33.9 (32.2-35.5) g/dl RDW Std Deviation 48.2 H (36.4-46.3) fL Plt Count 213 (182-369) K/mm3 MPV 9.4 (9.4-12.3) fl Neut % (Auto) 64.7 (34.0-71.1) % Lymph % (Auto) 23.2 (19.3-51.7) % [place] % (Auto) 10.1 (4.7-12.5) % Eos % (Auto) 0.9 (0.7-5.8) Baso % (Auto) 0.9 (0.1-1.2) % Neut # (Auto) 3.60 (1.56-6.13) K/mm3 Lymph # (Auto) 1.29 (1.18-3.74) K/mm3 [place] # (Auto) 0.56 H (0.24-0.36) K/mm3 Eos # (Auto) 0.05 (0.04-0.36) K/mm3 Baso # (Auto) 0.05 (0.01-0.08) K/mm3 Sodium 138 (136-145) mEq/L Potassium 3.5 (3.5-5.1) mEq/L Chloride 103 (98-107) mEq/L Carbon Dioxide 28 (21-32) mEq/L Anion Gap 10.5 (5-15) BUN 15 (7-18) mg/dL Creatinine 1.0 (0.55-1.02) mg/dL Est Cr Clr Drug Dosing TNP Estimated GFR (MDRD) 52 (>60) mL/min BUN/Creatinine Ratio 15.0 (14-18) Glucose 84 (83-115) mg/dL Calcium 9.2 (8.5-10.1) mg/dL Total Bilirubin 0.5 (0.2-1.0) mg/dL AST 32 (15-37) U/L ALT 33 (14-59) U/L Alkaline Phosphatase 85 (46-116) U/L Troponin I 0.100 H* (0.00-0.056) ng/mL Total Protein 6.9 (6.4-8.2) g/dl Albumin 3.3 L (3.4-5.0) g/dl Globulin 3.6 gm/dL Albumin/Globulin Ratio 0.9 L (1-2) Urine Color Yellow (Yellow) Urine Appearance Clear (Clear) Urine pH 7.0 (5.0-8.0) Ur Specific [place] 1.020 (1.005-1.030) Urine Protein Negative (Negative) Urine Glucose (UA) Negative (Negative) Urine Ketones Negative (Negative) Urine Occult Blood Negative (Negative) Urine Nitrite Negative (Negative) Urine Bilirubin Negative (Negative) Urine Urobilinogen 0.2 (0.2-1.0) Ur Leukocyte Esterase 1+ H (Negative) Urine RBC 0-5 (0-5) /hpf Urine WBC 0-5 (0-5) /hpf Ur Squamous Epith Cells 0-5 (0-5) /hpf Urine Bacteria Not seen (FEW) /hpf Urine Mucus Not seen (FEW) /hpf Meds: Medications Generic Name Dose Route Start Last Admin Trade Name Freq PRN Reason Stop Dose Admin Sodium Chloride 500 mls @ 1,000 mls/hr 07/16/18 09:00 07/16/18 09:03 Normal Saline IV 1,000 mls/hr .BOLUS [place] Administration Sodium Chloride 10 ml 07/16/18 08:50 07/16/18 09:04 Saline Flush FLUSH 10 ml ASDIRECTED PRN Administration Keep Vein Open - Re-Assessments/Exams Free Text/Narrative Re-Assessment/Exam: 07/16/18 10:07 I ordered an IV NS 500mL bolus, EKG, CT of her head, labs and a UA. Her EKG shows a NSR, 1st degree HB and Q waves in the inferior leads. Her CT shows scalp hematoma, within the left frontal region. Senescent change. No acute intracranial abnormality or acute skull fracture is identified. Her CBC looks good. Her BP went up after the CT to 186 systolic. She did take her medications this morning. This has apparently happened when she goes for meals and before she eats. 07/16/18 11:04 Her CBC and CMP look good. Her troponin was elevated at 0.1. Her troponin has always been elevated. 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 I am waiting on her UA. 07/16/18 11:07 Her UA shows no UTI. I will get her a holter monitor for 48 hours. I do not want to change any of her medications at this time. Departure - Departure Time of Disposition: 11:10 Disposition: Home, Self-Care 01 Condition: Good Clinical Impression: Elevated troponin Syncope Qualifiers: Syncope type: vasovagal syncope Qualified Code(s): R55 - Syncope and collapse - Discharge Information *PRESCRIPTION DRUG MONITORING PROGRAM REVIEWED*: Not Applicable *COPY OF PRESCRIPTION DRUG MONITORING REPORT IN PATIENT BHAVIN: Not Applicable Referrals: PCP,Not In Area [Primary Care Provider] - Forms: ED Department Discharge Additional Instructions: Keep taking your medications as prescribed. Follow up with your doctor in 1 week. Please return if you are worse. - My Orders Last 24 Hours: My Active Orders 07/16/18 08:50 Cardiac Monitoring [RC] . DIRECTED Sodium Chloride 0.9% [Saline Flush] 10 ml FLUSH ASDIRECTED PRN Peripheral IV Insertion Adult [OM.PC] Stat 07/16/18 08:51 Peripheral IV Care [RC] . DIRECTED 07/16/18 08:52 EKG Documentation Completion [RC] STAT 07/16/18 09:00 Sodium Chloride 0.9% [Normal Saline] 500 ml IV .BOLUS - Assessment/Plan Last 24 Hours: My Active Orders 07/16/18 08:50 Cardiac Monitoring [RC] . DIRECTED Sodium Chloride 0.9% [Saline Flush] 10 ml FLUSH ASDIRECTED PRN Peripheral IV Insertion Adult [OM.PC] Stat 07/16/18 08:51 Peripheral IV Care [RC] . DIRECTED 07/16/18 08:52 EKG Documentation Completion [RC] STAT 07/16/18 09:00 Sodium Chloride 0.9% [Normal Saline] 500 ml IV .BOLUS
--- NOTE | 2018-07-16 10:06 | CT ---
Head CT Technique: Multiple axial sections through the brain were obtained. Comparison: Prior head CT study of 11/29/17. Findings: Ventricles along with basal cisterns and sulci over the convexities are moderately prominent. Diminished density is noted within the periventricular and subcortical white matter compatible with small vessel ischemic demyelination change. Minimal areas of diminished density noted within the periventricular white matter also compatible with small vessel ischemic demyelination change. No other abnormal parenchymal densities are seen. No evidence of intracranial hemorrhage. No midline shift or mass effect is seen. Soft tissue hematoma is noted within the left frontal scalp. No acute calvarial abnormality is appreciated. Visualized sinuses are clear. Impression: 1. Scalp hematoma within the left frontal region. 2. Senescent change as noted above. 3. No acute intracranial abnormality or acute skull fracture is identified. Diagnostic code #2 MTDD
== END 2018-07-16 12:15 | disposition home or self-care (01) ==
LOC: JD.ED 08:24
DX: R55 Syncope and collapse (principal); E78.00 Pure hypercholesterolemia, unspecified; I10 Essential (primary) hypertension; E03.9 Hypothyroidism, unspecified; Z79.01 Long term (current) use of anticoagulants; R79.89 Other specified abnormal findings of blood chemistry; Z79.82 Long term (current) use of aspirin; Z79.899 Other long term (current) drug therapy
CPT/HCPCS: 36415; 70450; 80053; 81001; 84484; 85025; 93005; 93225; 93226; 99284; J7040; 93010

== ENCOUNTER 2019-05-18 21:25 | Emergency (ER) | payer MEDICARE, BC ==
[2019-05-18 21:33] VITALS: PULSE 74
[2019-05-18] MEDS ORDERED: cloNIDine 0.1 MG Tab PO ONE (22:45)
--- NOTE | 2019-05-18 22:49 | EDM.PDOC ---
ED HPI GENERAL MEDICAL PROBLEM - General Chief Complaint: Chest Pain Stated Complaint: [facility] Time Seen by Provider: 05/18/19 22:39 Source of Information: Reports: Patient, Family History Limitations: Reports: No Limitations - History of Present Illness INITIAL COMMENTS - FREE TEXT/NARRATIVE: This is a 89-year-old female. She lives at [facility] which is a assisted living facility here in [place]. Apparently this afternoon some time she was complaining of some chest pain and shortness of breath and they sent her to the ER for evaluation. When I talked to the patient she does not remember having chest pain or being short of breath and she is not having chest pain or shortness of breath now. The son that is with her states that has a very poor memory. The patient cannot add to this. She is noted to have an elevated blood pressure of 179/110 but she is not complaining of any symptoms. From her history there is supposed to have gotten her blood pressure down to 140/90 but obviously that has not occurred presently. She denies any cough congestion no nausea vomiting no headache no chest pain no fever. 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 - Related Data Allergies Allergy/AdvReac Type Severity Reaction Status Date / Time No Known Allergies Allergy Verified 05/18/19 21:34 Home Meds: Home Meds Aspirin 81 mg PO DAILY #100 tab.chew 07/05/17 [Rx] Clopidogrel [Plavix] 75 mg PO DAILY #30 tablet 07/05/17 [Rx] Memantine [Namenda] 10 mg PO BID 06/12/18 [History] Omeprazole 20 mg PO DAILY 06/12/18 [History] Sertraline [Zoloft] 25 mg PO DAILY 06/12/18 [History] Carvedilol [Coreg] 3.125 mg PO BID #60 tablet 10/01/18 [Rx] Levothyroxine [Synthroid] 88 mcg PO ACBREAKFAST #30 tab 10/01/18 [Rx] Lisinopril 10 mg PO DAILY #30 tablet 10/01/18 [Rx] Past Medical History HEENT History: Reports: Hard of Hearing, Impaired Vision Other HEENT History: wears eyeglasses, has bilateral hearing aides Cardiovascular History: Reports: Afib, CAD, High Cholesterol, Hypertension, [place] Respiratory History: Reports: None Gastrointestinal History: Reports: GERD, Hemorrhoids Genitourinary History: Reports: Other (See Below) Other Genitourinary History: hx of leaking urine--resolved WELL TENDER 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: Reports: Musculoskeletal History: Reports: None Neurological History: Reports: Alzheimers Disease, Vertigo, Other (See Below) Other Neuro History: memory deficits Psychiatric History: Reports: None Other Psychiatric History: forgetful Endocrine/Metabolic History: Reports: Hypothyroidism Hematologic History: Reports: Anemia Immunologic History: Reports: None Oncologic (Cancer) History: Reports: None Dermatologic History: Reports: None - Infectious Disease History Infectious Disease History: Reports: Chicken Pox, Measles, Mumps, Rubella - Past Surgical History Head Surgeries/Procedures: Reports: None HEENT Surgical History: Reports: Cataract Surgery Cardiovascular Surgical History: Reports: None GI Surgical History: Reports: None Social & Family History - Family History Family Medical History: Noncontributory Endocrine/Metabolic: Reports: Diabetes, type II - Tobacco Use Smoking Status *Q: Unknown Ever Smoked - Caffeine Use Caffeine Use: Reports: None Other Caffeine Use: pot a day - Living Situation & Occupation Living situation: Reports: , Alone Occupation: Retired ED ROS GENERAL - Review of Systems Review Of Systems: See Below Constitutional: Denies: Fever, Chills HEENT: Reports: No Symptoms Respiratory: Denies: Shortness of Breath, Wheezing, Cough Cardiovascular: Reports: Chest Pain, Blood Pressure Problem Endocrine: Reports: No Symptoms GI/Abdominal: Reports: No Symptoms : Reports: No Symptoms Musculoskeletal: Reports: No Symptoms Skin: Reports: No Symptoms Neurological: Reports: No Symptoms Psychiatric: Reports: No Symptoms Hematologic/Lymphatic: Reports: No Symptoms ED EXAM, GENERAL - Physical Exam Exam: See Below Exam Limited By: Other (The patient does have dementia which makes her memory somewhat less able to give me information) General Appearance: Alert, WD/WN, No Apparent Distress Eye Exam: Bilateral Eye: Normal Inspection Ears: Normal External Exam Nose: Normal Inspection Throat/Mouth: Normal Inspection, Normal Lips, Normal Voice, No Airway Compromise Head: Normocephalic Neck: Supple Respiratory/Chest: No Respiratory Distress, Lungs Clear, Normal Breath Sounds Cardiovascular: Regular Rate, Rhythm, No Murmur GI/Abdominal: Soft, Non-Tender Back Exam: Full Range of Motion Extremities: Normal Inspection, Normal Range of Motion. No: Pedal Edema Neurological: Alert, Other (Knows the person in the room as her son) Psychiatric: Normal Affect, Normal Mood Skin Exam: Warm, Dry EKG INTERPRETATION EKG Date: 05/18/19 Time: 21:35 EKG Interpretation Comments: EKG shows a sinus rhythm right of 79 with some PVCs noted. Does appear to have a prolonged TN interval as well. There is suggestion to that she is got an old anterior septal infarct but there is no acute ST elevation or T wave changes and no acute ischemia noted. Course - Vital Signs Last Recorded V/S: Last Vital Signs Temp 97.1 F 05/18/19 21:30 Pulse 74 05/18/19 21:30 Resp 22 H 05/18/19 21:30 BP 188/99 H 05/18/19 23:10 Pulse Ox 93 L 05/18/19 21:30 - Orders/Labs/Meds Orders: Active Orders 24 hr Category Date Time Status EKG Documentation Completion [RC] STAT Care 05/18/19 21:41 Active Labs: Laboratory Tests 05/18/19 05/18/19 Range/Units 23:03 23:03 WBC 7.45 (3.98-10.04) K/mm3 RBC 4.70 (3.98-5.22) M/mm3 Hgb 14.3 D (11.2-15.7) gm/dl Hct 42.2 (34.1-44.9) % MCV 89.8 (79.4-94.8) fl MCH 30.4 (25.6-32.2) pg MCHC 33.9 (32.2-35.5) g/dl RDW Std Deviation 46.3 (36.4-46.3) fL Plt Count 234 (182-369) K/mm3 MPV 9.7 (9.4-12.3) fl Neut % (Auto) 67.7 (34.0-71.1) % Lymph % (Auto) 19.7 (19.3-51.7) % [place] % (Auto) 8.9 (4.7-12.5) % Eos % (Auto) 2.8 (0.7-5.8) Baso % (Auto) 0.8 (0.1-1.2) % Neut # (Auto) 5.04 (1.56-6.13) K/mm3 Lymph # (Auto) 1.47 (1.18-3.74) K/mm3 [place] # (Auto) 0.66 H (0.24-0.36) K/mm3 Eos # (Auto) 0.21 (0.04-0.36) K/mm3 Baso # (Auto) 0.06 (0.01-0.08) K/mm3 Sodium 136 (136-145) mEq/L Potassium 3.7 (3.5-5.1) mEq/L Chloride 103 (98-107) mEq/L Carbon Dioxide 24 (21-32) mEq/L Anion Gap 12.7 (5-15) BUN 20 H (7-18) mg/dL Creatinine 1.0 (0.55-1.02) mg/dL Est Cr Clr Drug Dosing 30.76 mL/min Estimated GFR (MDRD) 52 (>60) mL/min BUN/Creatinine Ratio 20.0 H (14-18) Glucose 103 (83-115) mg/dL Calcium 9.0 (8.5-10.1) mg/dL Total Bilirubin 0.4 (0.2-1.0) mg/dL AST 17 (15-37) U/L ALT 17 (14-59) U/L Alkaline Phosphatase 104 (46-116) U/L Troponin I 0.098 H* (0.00-0.056) ng/mL Total Protein 6.9 (6.4-8.2) g/dl Albumin 3.2 L (3.4-5.0) g/dl Globulin 3.7 gm/dL Albumin/Globulin Ratio 0.9 L (1-2) Meds: Medications Discontinued Medications Generic Name Dose Route Start Last Admin Trade Name Nathan PRN Reason Stop Dose Admin Clonidine HCl 0.3 mg 05/18/19 22:45 05/18/19 23:10 Catapres PO 05/18/19 22:46 0.3 mg ONETIME ONE Administration - Re-Assessments/Exams Free Text/Narrative Re-Assessment/Exam: 05/19/19 00:07 I spoke to the son regarding the mild elevation of the troponin at 0.098. The patient is a DNR. I think she might of had a mild ischemic event that caused the blip in the troponin but he does not want her to get a stent he does not want her to go through cardiac rehab he just wants to take her back to the snf and let her live out her pleasant life. He is good with not working up this minimally elevated troponin. Departure - Departure Time of Disposition: 00:08 Disposition: Home, Self-Care 01 Condition: Good Clinical Impression: Cardiac ischemia, Angina pectoris Chest pain Qualifiers: Chest pain type: chest pain due to myocardial ischemia Ischemic chest pain type : unspecified angina pectoris type Qualified Code(s): I25.9 - Chronic ischemic heart disease, unspecified Instructions: Coronary Microvascular Disease Referrals: Patito Vargas MD [Primary Care Provider] - Forms: ED Department Discharge Additional Instructions: The patient may go back to her usual routine at her residence, continue with her medications, she needs a follow-up visit with her family doctor this coming week regarding her cardiac ischemia and angina, return to the ER as needed Sepsis Event Note - Evaluation Sepsis Screening Result: No Definite Risk - Focused Exam Vital Signs: Vital Signs Temp Pulse Resp BP BP Pulse Ox 05/18/19 23:10 188/99 H 05/18/19 21:30 97.1 F 74 22 H 188/129 H 93 L Date Exam was Performed: 05/19/19 Time Exam was Performed: 00:07 - My Orders Last 24 Hours: My Active Orders 05/18/19 21:41 EKG Documentation Completion [RC] STAT - Assessment/Plan Last 24 Hours: My Active Orders 05/18/19 21:41 EKG Documentation Completion [RC] STAT
[2019-05-18 23:10] VITALS: BP 188/99
== END 2019-05-19 00:35 | disposition home or self-care (01) ==
LOC: JD.ED 21:25
DX: I25.119 Atherosclerotic heart disease of native coronary artery with unspecified angina pectoris (principal); I48.91 Unspecified atrial fibrillation; E78.00 Pure hypercholesterolemia, unspecified; I10 Essential (primary) hypertension; I25.2 Old myocardial infarction; K21.9 Gastro-esophageal reflux disease without esophagitis; G30.9 Alzheimer's disease, unspecified; F02.80 Dementia in other diseases classified elsewhere, unspecified severity, without behavioral disturbance, psychotic disturbance, mood disturbance, and anxiety; E03.9 Hypothyroidism, unspecified; Z79.82 Long term (current) use of aspirin; Z79.02 Long term (current) use of antithrombotics/antiplatelets; Z79.899 Other long term (current) drug therapy
CPT/HCPCS: 36415; 80053; 84484; 85025; 93005; 99285; A9270; 93010; 99283

== ENCOUNTER 2019-05-27 15:31 | Emergency (ER) | payer MEDICARE, BC ==
[2019-05-27] MEDS ORDERED: Sodium Chloride 0.9% 10 ML Syringe FLUSH PRN (15:51)
--- NOTE | 2019-05-27 16:51 | CT ---
Head CT Technique: Multiple axial sections through the brain were obtained. Intravenous contrast was not utilized. Comparison: Prior head CT study of 07/16/18. Findings: Ventricles along with basal cisterns and sulci over the convexities are moderately prominent. Diminished density is noted within the periventricular and subcortical white matter which is felt compatible with small vessel ischemic demyelination change. No other abnormal parenchymal densities are seen. No evidence of intracranial hemorrhage. No midline shift or mass effect is seen. Bone window settings were reviewed. No acute calvarial finding is seen. Visualized mastoid sinuses and visualized paranasal sinuses are clear. Impression: 1. Senescent change as noted above. 2. Nothing acute is appreciated on noncontrast head CT exam. Diagnostic code #2 Study was dictated in MDT
[2019-05-27] MEDS ORDERED: Metoprolol Tartrate 50 MG Tab PO ONE (17:01)
[2019-05-27 17:07] VITALS: BP 192/116; PULSE 75
--- NOTE | 2019-05-27 17:49 | EDM.PDOC ---
ED HPI GENERAL MEDICAL PROBLEM - General Chief Complaint: General Stated Complaint: [facility] Time Seen by Provider: 05/27/19 15:40 Source of Information: Reports: Patient, Family, Halfway Records History Limitations: Reports: No Limitations - History of Present Illness INITIAL COMMENTS - FREE TEXT/NARRATIVE: The patient presents by [facility] for a headache and leaning to the right side. This started a few days ago. She is also off balance. She has no fever, chills, cough, chest pain, shortness of breath, nausea or vomiting. She did have some double vision at one time. Onset: Gradual Duration: Day(s): Location: Reports: Head Quality: Reports: Ache Severity: Mild Improves with: Reports: None Worsens with: Reports: None Associated Symptoms: Reports: Headaches. Denies: Chest Pain, Cough, Fever/ Chills, Nausea/Vomiting, Shortness of Breath - Related Data Allergies Allergy/AdvReac Type Severity Reaction Status Date / Time No Known Allergies Allergy Verified 05/27/19 17:03 Home Meds: Home Meds Aspirin 81 mg PO DAILY #100 tab.chew 07/05/17 [Rx] Clopidogrel [Plavix] 75 mg PO DAILY #30 tablet 07/05/17 [Rx] Memantine [Namenda] 10 mg PO BID 06/12/18 [History] Omeprazole 20 mg PO DAILY 06/12/18 [History] Sertraline [Zoloft] 75 mg PO DAILY 06/12/18 [History] Carvedilol [Coreg] 3.125 mg PO BID #60 tablet 10/01/18 [Rx] Levothyroxine [Synthroid] 88 mcg PO ACBREAKFAST #30 tab 10/01/18 [Rx] Lisinopril 10 mg PO DAILY #30 tablet 10/01/18 [Rx] Acetaminophen [Tylenol] 650 mg PO ASDIRECTED 05/27/19 [History] Calcium Carbonate [Antacid] 2 cap PO ASDIRECTED 05/27/19 [History] Cyanocobalamin (Vitamin B12) [Vitamin B12] 100 mcg PO DAILY 05/27/19 [History] Docusate Sodium [DOK] 2 cap PO ASDIRECTED 05/27/19 [History] Meclizine [Antivert] 25 mg PO Q6H PRN #30 tab 05/27/19 [Rx] carvediloL [Coreg] 6.25 mg PO BID #60 tab 05/27/19 [Rx] Past Medical History HEENT History: Reports: Hard of Hearing, Impaired Vision Other HEENT History: wears eyeglasses, has bilateral hearing aides Cardiovascular History: Reports: Afib, CAD, High Cholesterol, Hypertension, PR Respiratory History: Reports: None Gastrointestinal History: Reports: GERD, Hemorrhoids Genitourinary History: Reports: Other (See Below) Other Genitourinary History: hx of leaking urine--resolved [employer] History: Reports: Musculoskeletal History: Reports: None Neurological History: Reports: Alzheimers Disease, Vertigo, Other (See Below) Other Neuro History: memory deficits Psychiatric History: Reports: None Other Psychiatric History: forgetful Endocrine/Metabolic History: Reports: Hypothyroidism Hematologic History: Reports: Anemia Immunologic History: Reports: None Oncologic (Cancer) History: Reports: None Dermatologic History: Reports: None - Infectious Disease History Infectious Disease History: Reports: Chicken Pox, Measles, Mumps, Rubella - Past Surgical History Head Surgeries/Procedures: Reports: None HEENT Surgical History: Reports: Cataract Surgery Cardiovascular Surgical History: Reports: None GI Surgical History: Reports: None Social & Family History - Family History Family Medical History: Noncontributory Endocrine/Metabolic: Reports: Diabetes, type II - Tobacco Use Smoking Status *Q: Never Smoker - Caffeine Use Caffeine Use: Reports: Coffee, Tea Other Caffeine Use: pot a day - Recreational Drug Use Recreational Drug Use: No - Living Situation & Occupation Living situation: Reports: , Alone Occupation: Retired ED ROS GENERAL - Review of Systems Review Of Systems: See Below Constitutional: Reports: No Symptoms HEENT: Reports: No Symptoms Respiratory: Reports: No Symptoms Cardiovascular: Reports: No Symptoms Endocrine: Reports: No Symptoms GI/Abdominal: Reports: No Symptoms : Reports: No Symptoms Musculoskeletal: Reports: No Symptoms ED EXAM, GENERAL - Physical Exam Exam: See Below Exam Limited By: No Limitations General Appearance: Alert, No Apparent Distress Eye Exam: Bilateral Eye: EOMI, PERRL Ears: Normal External Exam Nose: Normal Inspection Head: Atraumatic, Normocephalic Neck: Normal Inspection Respiratory/Chest: No Respiratory Distress, Lungs Clear, Normal Breath Sounds Cardiovascular: Regular Rate, Rhythm, No Edema, No Murmur GI/Abdominal: Soft, Non-Tender, No Organomegaly, No Mass Back Exam: Normal Inspection Extremities: Normal Inspection Course - Vital Signs Last Recorded V/S: Last Vital Signs Temp 97.8 F 05/27/19 15:39 Pulse 75 05/27/19 17:06 Resp 20 05/27/19 15:39 BP 192/116 H 05/27/19 17:06 Pulse Ox 98 05/27/19 15:39 - Orders/Labs/Meds Orders: Active Orders 24 hr Category Date Time Status Cardiac Monitoring [RC] . DIRECTED Care 05/27/19 15:51 Active EKG Documentation Completion [RC] STAT Care 05/27/19 15:52 Active Peripheral IV Care [RC] . DIRECTED Care 05/27/19 15:52 Active Sodium Chloride 0.9% [Saline Flush] Med 05/27/19 15:51 Active 10 ml FLUSH ASDIRECTED PRN Peripheral IV Insertion Adult [OM.PC] Stat Oth 05/27/19 15:51 Ordered Medication Orders Sodium Chloride (Saline Flush) 10 ml FLUSH ASDIRECTED PRN PRN Reason: Keep Vein Open Last Admin: 05/27/19 16:05 Dose: 10 ml Labs: Laboratory Tests 05/27/19 05/27/19 05/27/19 Range/Units 16:00 16:00 16:55 WBC 6.74 (3.98-10.04) K/mm3 RBC 5.03 (3.98-5.22) M/mm3 Hgb 15.2 (11.2-15.7) gm/dl Hct 45.0 H (34.1-44.9) % MCV 89.5 (79.4-94.8) fl MCH 30.2 (25.6-32.2) pg MCHC 33.8 (32.2-35.5) g/dl RDW Std Deviation 46.7 H (36.4-46.3) fL Plt Count 244 (182-369) K/mm3 MPV 9.8 (9.4-12.3) fl Neut % (Auto) 62.2 (34.0-71.1) % Lymph % (Auto) 26.7 (19.3-51.7) % [place] % (Auto) 8.9 (4.7-12.5) % Eos % (Auto) 1.3 (0.7-5.8) Baso % (Auto) 0.6 (0.1-1.2) % Neut # (Auto) 4.19 (1.56-6.13) K/mm3 Lymph # (Auto) 1.80 (1.18-3.74) K/mm3 [place] # (Auto) 0.60 H (0.24-0.36) K/mm3 Eos # (Auto) 0.09 (0.04-0.36) K/mm3 Baso # (Auto) 0.04 (0.01-0.08) K/mm3 Sodium 138 (136-145) mEq/L Potassium 3.6 (3.5-5.1) mEq/L Chloride 102 (98-107) mEq/L Carbon Dioxide 25 (21-32) mEq/L Anion Gap 14.6 (5-15) BUN 16 (7-18) mg/dL Creatinine 0.9 (0.55-1.02) mg/dL Est Cr Clr Drug Dosing 37.31 mL/min Estimated GFR (MDRD) 59 (>60) mL/min BUN/Creatinine Ratio 17.8 (14-18) Glucose 110 (83-115) mg/dL Calcium 9.1 (8.5-10.1) mg/dL Total Bilirubin 0.5 (0.2-1.0) mg/dL AST 15 (15-37) U/L ALT 14 (14-59) U/L Alkaline Phosphatase 102 (46-116) U/L Troponin I 0.063 H* (0.00-0.056) ng/mL Total Protein 7.3 (6.4-8.2) g/dl Albumin 3.4 (3.4-5.0) g/dl Globulin 3.9 gm/dL Albumin/Globulin Ratio 0.9 L (1-2) Urine Color Yellow (Yellow) Urine Appearance Clear (Clear) Urine pH 7.0 (5.0-8.0) Ur Specific [place] 1.025 (1.005-1.030) Urine Protein Negative (Negative) Urine Glucose (UA) Negative (Negative) Urine Ketones Negative (Negative) Urine Occult Blood Trace-lysed H (Negative) Urine Nitrite Negative (Negative) Urine Bilirubin Negative (Negative) Urine Urobilinogen 0.2 (0.2-1.0) Ur Leukocyte Esterase Negative (Negative) Urine RBC 0-5 (0-5) /hpf Urine WBC 0-5 (0-5) /hpf Ur Squamous Epith Cells 0-5 (0-5) /hpf Urine Bacteria Few (FEW) /hpf Urine Mucus Not seen (FEW) /hpf Meds: Medications Generic Name Dose Route Start Last Admin Trade Name Freward PRN Reason Stop Dose Admin Sodium Chloride 10 ml 05/27/19 15:51 05/27/19 16:05 Saline Flush FLUSH 10 ml ASDIRECTED PRN Administration Keep Vein Open Discontinued Medications Generic Name Dose Route Start Last Admin Trade Name Freq PRN Reason Stop Dose Admin Meclizine HCl 25 mg 05/27/19 15:52 05/27/19 16:05 Antivert PO 05/27/19 15:53 25 mg ONETIME ONE Administration Metoprolol Tartrate 50 mg 05/27/19 17:01 05/27/19 17:06 Lopressor PO 05/27/19 17:02 50 mg ONETIME ONE Administration - Re-Assessments/Exams Free Text/Narrative Re-Assessment/Exam: 05/27/19 17:47 I ordered an IV, CT of her head, EKG, labs and antivert. Her CT shows senescent change. Nothing acute is appreciated on noncontrast head CT exam. Her CBC and CMP look good. Her troponin is elevated at 0.063 but each time she has been in here it has been elevated. 05/27/19 18:00 My nurse got her up and she did well. I will give her some antivert as needed for dizziness. Departure - Departure Time of Disposition: 18:05 Disposition: Home, Self-Care 01 Condition: Good Clinical Impression: Dizziness, Elevated troponin Hypertension Qualifiers: Hypertension type: essential hypertension Qualified Code(s): I10 - Essential ( primary) hypertension - Discharge Information *PRESCRIPTION DRUG MONITORING PROGRAM REVIEWED*: Not Applicable *COPY OF PRESCRIPTION DRUG MONITORING REPORT IN PATIENT BHAVIN: Not Applicable Prescriptions: Meclizine [Antivert] 25 mg PO Q6H PRN #30 tab PRN Reason: Dizziness Referrals: Patito Vargas MD [Primary Care Provider] - 1 Week Forms: ED Department Discharge Additional Instructions: Drink plenty of fluids. Take your medications as prescribed. Take the antivert every 6 hours as needed for dizziness. Take the coreg 6.25 2 times per day. Please return if you are worse. Sepsis Event Note - Evaluation Sepsis Screening Result: No Definite Risk - Focused Exam Vital Signs: Vital Signs Temp Pulse Pulse Resp BP BP Pulse Ox 05/27/19 17:06 75 192/116 H 05/27/19 15:39 97.8 F 76 20 195/123 H 98 Date Exam was Performed: 05/27/19 Time Exam was Performed: 18:00 - My Orders Last 24 Hours: My Active Orders 05/27/19 15:51 Cardiac Monitoring [RC] . DIRECTED Sodium Chloride 0.9% [Saline Flush] 10 ml FLUSH ASDIRECTED PRN Peripheral IV Insertion Adult [OM.PC] Stat 05/27/19 15:52 EKG Documentation Completion [RC] STAT Peripheral IV Care [RC] . DIRECTED - Assessment/Plan Last 24 Hours: My Active Orders 05/27/19 15:51 Cardiac Monitoring [RC] . DIRECTED Sodium Chloride 0.9% [Saline Flush] 10 ml FLUSH ASDIRECTED PRN Peripheral IV Insertion Adult [OM.PC] Stat 05/27/19 15:52 EKG Documentation Completion [RC] STAT Peripheral IV Care [RC] . DIRECTED
== END 2019-05-27 18:30 | disposition home or self-care (01) ==
LOC: SUPCPDRO 15:31 → JD.ED 15:31
DX: I10 Essential (primary) hypertension (principal); R79.89 Other specified abnormal findings of blood chemistry; I25.10 Atherosclerotic heart disease of native coronary artery without angina pectoris; I48.91 Unspecified atrial fibrillation; E78.00 Pure hypercholesterolemia, unspecified; I25.2 Old myocardial infarction; K21.9 Gastro-esophageal reflux disease without esophagitis; E03.9 Hypothyroidism, unspecified; Z79.02 Long term (current) use of antithrombotics/antiplatelets; Z79.82 Long term (current) use of aspirin; Z79.899 Other long term (current) drug therapy
CPT/HCPCS: 36415; 70450; 80053; 81001; 84484; 85025; 93005; 99285; A9270

== ENCOUNTER 2019-05-30 09:40 | Emergency (ER) | payer MEDICARE, BC ==
[2019-05-30 09:56] VITALS: BP 106/67; PULSE 70
[2019-05-30] MEDS ORDERED: Dextrose 5%-0.9% NaCl 1,000 ML IV SCH (10:00)
--- NOTE | 2019-05-30 10:02 | EDM.PDOC ---
ED HPI GENERAL MEDICAL PROBLEM - General Chief Complaint: Back Pain or Injury Stated Complaint: [facility] Time Seen by Provider: 05/30/19 09:56 Source of Information: Reports: Patient History Limitations: Reports: No Limitations - History of Present Illness INITIAL COMMENTS - FREE TEXT/NARRATIVE: 89-year-old female presents to the ED from [facility] for evaluation of right hip pain. Apparently she fell last evening and is unclear if this was witnessed or not. She apparently could weight-bear on the hip last night but went to bed and apparently did not get up this morning. This morning when she attempted to weight-bear she could not on the right side and she was taken to the dining room table in a wheelchair. Normally she is ambulatory. She cannot remember falling she is obviously showing signs of dementia. She does not believe she hit her head but everything has to be taken with a grain of salt. There were no outward signs of any head or facial or head neck trauma. Minimal bruise to the left upper extremity. Of note she is on anticoagulants. Some pain in her right flank area of her back and her right hip. Onset: Sudden Onset Date: 05/29/19 Duration: Hour(s): (Fell late last evening unclear what time), Getting Worse ( Increased pain and inability to weight-bear on the right side) Location: Reports: Back (Flank of back area), Lower Extremity, Right (In the right hip apparently with weightbearing) Quality: Reports: Ache Severity: Moderate Improves with: Reports: Rest Worsens with: Reports: Movement (Bearing seems to make the pain much worse in her right hip.) Context: Reports: Trauma (Apparently got tripped up and fell on her right hip and side.). Denies: Activity, Exercise, Lifting, Sick Contact Associated Symptoms: Reports: Confusion, Malaise, Shortness of Breath, Weakness. 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: Other (see below) (Generalized only she was given her normal medications this morning which includes Plavix.) Right Lower Back Pain Score (Numeric/FACES): 5 - Related Data Allergies Allergy/AdvReac Type Severity Reaction Status Date / Time No Known Allergies Allergy Verified 05/30/19 09:56 Home Meds: Home Meds Aspirin 81 mg PO DAILY #100 tab.chew 07/05/17 [Rx] Clopidogrel [Plavix] 75 mg PO DAILY #30 tablet 07/05/17 [Rx] Memantine [Namenda] 10 mg PO BID 06/12/18 [History] Omeprazole 20 mg PO DAILY 06/12/18 [History] Sertraline [Zoloft] 50 mg PO DAILY 06/12/18 [History] Levothyroxine [Synthroid] 88 mcg PO ACBREAKFAST #30 tab 10/01/18 [Rx] Lisinopril 10 mg PO DAILY #30 tablet 10/01/18 [Rx] Calcium Carbonate [Antacid] 2 cap PO ASDIRECTED 05/27/19 [History] Cyanocobalamin (Vitamin B12) [Vitamin B12] 100 mcg PO DAILY 05/27/19 [History] Docusate Sodium [DOK] 1 cap PO ASDIRECTED 05/27/19 [History] Meclizine [Antivert] 25 mg PO Q6H PRN #30 tab 05/27/19 [Rx] carvediloL [Coreg] 6.25 mg PO BID #60 tab 05/27/19 [Rx] Past Medical History HEENT History: Reports: Hard of Hearing, Impaired Vision Other HEENT History: wears eyeglasses, has bilateral hearing aides Cardiovascular History: Reports: Afib, CAD, High Cholesterol, Hypertension, [place] Respiratory History: Reports: None Gastrointestinal History: Reports: GERD, Hemorrhoids Genitourinary History: Reports: Other (See Below) Other Genitourinary History: hx of leaking urine--resolved 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: Musculoskeletal History: Reports: None Neurological History: Reports: Alzheimers Disease, Vertigo, Other (See Below) Other Neuro History: memory deficits Psychiatric History: Reports: None Other Psychiatric History: forgetful Endocrine/Metabolic History: Reports: Hypothyroidism Hematologic History: Reports: Anemia Immunologic History: Reports: None Oncologic (Cancer) History: Reports: None Dermatologic History: Reports: None - Infectious Disease History Infectious Disease History: Reports: Chicken Pox, Measles, Mumps, Rubella - Past Surgical History Head Surgeries/Procedures: Reports: None HEENT Surgical History: Reports: Cataract Surgery Cardiovascular Surgical History: Reports: None GI Surgical History: Reports: None Social & Family History - Family History Family Medical History: Noncontributory Endocrine/Metabolic: Reports: Diabetes, type II - Caffeine Use Caffeine Use: Reports: Coffee, Tea Other Caffeine Use: pot a day - Living Situation & Occupation Living situation: Reports: , Alone Occupation: Retired ED ROS GENERAL - Review of Systems Review Of Systems: See Below Constitutional: Reports: Malaise, Weakness, Fatigue, Decreased Appetite. Denies : Fever, Chills HEENT: Reports: Glasses, Other Respiratory: Reports: Shortness of Breath (Apparently have some mild macular degeneration as well). Denies: Wheezing, Pleuritic Chest Pain ( today on exertion), Cough, Sputum Cardiovascular: Reports: Blood Pressure Problem, Dyspnea on Exertion (1 runs low.). Denies: Chest Pain, Orthopnea Endocrine: Reports: Fatigue GI/Abdominal: Reports: Constipation. Denies: Nausea (Because with constipation) , Vomiting : Reports: Frequency, Incontinence (Is wearing a depends.) Musculoskeletal: Reports: Back Pain (Planes of pain in the right flank area over ribs 11 and 12 with slight bruising and swelling in this area.), Other ( She has some slight swelling over the right posterior lateral right hip as well but she is able to lift it off the gurney and I was able to fully internally and externally rotate the hip without causing a great deal of pain or discomfort. No pain on firm compression of the pelvis and the ischial tuberosities. He can lift the left leg off the gurney with ease. She has bruising on the left volar mid forearm.) Skin: Reports: Bruising (She has bruises of number of several days different NT daily both upper extremities and hands. There is a new bruise distal volar left forearm) Neurological: Reports: Confusion ( that started purple in color.), Difficulty Walking (When she ambulates on her own is unclear whether she uses a gait aid.) , Weakness. Denies: Dizziness, Headache, Numbness, Syncope, Tingling Psychiatric: Reports: Confusion (Seems to be confused and certainly has loss of) Hematologic/Lymphatic: Reports: No Symptoms ( ability to recall recent events) Immunologic: Reports: No Symptoms ED EXAM,LOWER BACK PAIN/INJURY - Physical Exam Exam: See Below Exam Limited By: Altered Mental Status (He is confused cannot tell me when or how she fell.) General Appearance: Alert, No Apparent Distress, Other (Temperature was listed at 36.2 pulse is 70 respiratory to 16 BP 106 on 67 sats 97% on room air.) Eye Exam: Bilateral Eye: Normal Inspection, PERRL (No scleral icterus no blepharal pallor.) Throat/Mouth: Normal Inspection, Normal Oropharynx, Other (No evidence of tongue or lip injury.) Head: Atraumatic, Normocephalic, Other (No outward signs of any head or facial trauma) Neck: Normal Inspection, Limited Range of Motion, Tender Lateral (Under lateral aspect of her neck but very mild she for the most part had full range of motion with some crepitus on lateral rotation.). No: Lymphadenopathy (L), Lymphadenopathy (R) Respiratory/Chest: No Respiratory Distress, Decreased Breath Sounds (Creased air entry to the lower 30% of lung lowery bilaterally due to COPD.). No: Lungs Clear, Normal Breath Sounds, Respiratory Distress, Rales, Rhonchi ( No adventitial sounds noted), Wheezing Cardiovascular: Regular Rate, Rhythm, No Edema, No Gallop, No Murmur, No Rub. No: Normal Peripheral Pulses GI/Abdominal: Normal Bowel Sounds, Soft, Non-Tender, No Organomegaly, No Abnormal Bruit, No Mass Back Exam: CVA Tenderness (R) (Tenderness in the right flank and there is some slight swelling over ribs 11 and 12 laterally at the posterior axillary line and ), Other (True pain over any of the lumbar vertebra. Possibly some pain over T12 vertebra spinous process). No: Decreased Range of Motion Extremities: Other (Was able to lift the left lower extremity off the gurney without any issues. She seemed to have some hesitation to lift the right one from the gurney while I was able to lift it and internally externally rotate the hip without her having much pain. No pain on firm compression of the ischial tuberosities or on the pelvis itself. Pubic symphysis appears to be intact.) Neurological: Alert, Normal Mood/Affect (In no distress at all.). No: Oriented x 3 (Disoriented to time and place.) DTR - Lower Extremities: 0: Ankle (R), Ankle (L), 1+: Knee (R), Knee (L) Psychiatric: Normal Affect, Normal Mood Skin Exam: Warm, Dry, Intact, Ecchymosis (Small ecchymoses both upper extremities of various integrity from being on Plavix. There is a new bruise 3 cm in length and a centimeter in width volar distal left forearm. No evidence of injuries to the upper extremities shoulders elbows wrists or hands.) EKG INTERPRETATION EKG Date: 05/30/19 Time: 10:38 Rate (Beats/Min): 64 [place]: LAD-Left [place] Deviation P-Wave: Present (With first-degree AV block.) QRS: Other (Q waves V1 and V2 consider old anteroseptal myocardial infarction. There are also near Q waves to leads II, III and aVF consider old inferior wall myocardial infarction.) ST-T: Other (T wave flattening in leads aVL and aVF as well as V2 V3 and V6. Nonspecific pattern) QT: Prolonged Course - Vital Signs Last Recorded V/S: Last Vital Signs Temp 36.2 C 05/30/19 09:48 Pulse 70 05/30/19 09:48 Resp 16 05/30/19 09:48 BP 106/67 05/30/19 09:48 Pulse Ox 97 05/30/19 09:48 - Orders/Labs/Meds Orders: Active Orders 24 hr Category Date Time Status EKG Documentation Completion [RC] STAT Care 05/30/19 09:58 Active PATIENT RETYPE [BBK] Routine Lab 05/30/19 11:11 Ordered Labs: Laboratory Tests 05/30/19 05/30/19 05/30/19 Range/Units 10:20 10:20 10:20 WBC 7.67 (3.98-10.04) K/mm3 RBC 5.35 H (3.98-5.22) M/mm3 Hgb 16.1 H (11.2-15.7) gm/dl Hct 47.8 H (34.1-44.9) % MCV 89.3 (79.4-94.8) fl MCH 30.1 (25.6-32.2) pg MCHC 33.7 (32.2-35.5) g/dl RDW Std Deviation 47.2 H (36.4-46.3) fL Plt Count 236 (182-369) K/mm3 MPV 10.0 (9.4-12.3) fl Neut % (Auto) 78.1 H (34.0-71.1) % Lymph % (Auto) 12.3 L (19.3-51.7) % Gray % (Auto) 8.1 (4.7-12.5) % Eos % (Auto) 0.8 (0.7-5.8) Baso % (Auto) 0.4 (0.1-1.2) % Neut # (Auto) 6.00 (1.56-6.13) K/mm3 Lymph # (Auto) 0.94 L (1.18-3.74) K/mm3 Gray # (Auto) 0.62 H (0.24-0.36) K/mm3 Eos # (Auto) 0.06 (0.04-0.36) K/mm3 Baso # (Auto) 0.03 (0.01-0.08) K/mm3 ESR 18 (0-20) mm/hr PT (9.7-12.0) SECONDS INR APTT (22-31) SECONDS Sodium (136-145) mEq/L Potassium (3.5-5.1) mEq/L Chloride (98-107) mEq/L Carbon Dioxide (21-32) mEq/L Anion Gap (5-15) BUN (7-18) mg/dL Creatinine (0.55-1.02) mg/dL Est Cr Clr Drug Dosing Estimated GFR (MDRD) (>60) mL/min BUN/Creatinine Ratio (14-18) Glucose (83-115) mg/dL Calcium (8.5-10.1) mg/dL Magnesium (1.8-2.4) mg/dl Total Bilirubin (0.2-1.0) mg/dL AST (15-37) U/L ALT (14-59) U/L Alkaline Phosphatase (46-116) U/L Creatine Kinase (26-192) U/L CK-MB (CK-2) (0-3.6) ng/ml Troponin I (0.00-0.056) ng/mL C-Reactive Protein (<1.0) mg/dL NT-Pro-B Natriuret Pep (0-450) pg/mL Total Protein (6.4-8.2) g/dl Albumin (3.4-5.0) g/dl Globulin gm/dL Albumin/Globulin Ratio (1-2) Urine Color (Yellow) Urine Appearance (Clear) Urine pH (5.0-8.0) Ur Specific [place] (1.005-1.030) Urine Protein (Negative) Urine Glucose (UA) (Negative) Urine Ketones (Negative) Urine Occult Blood (Negative) Urine Nitrite (Negative) Urine Bilirubin (Negative) Urine Urobilinogen (0.2-1.0) Ur Leukocyte Esterase (Negative) Urine RBC (0-5) /hpf Urine WBC (0-5) /hpf Ur Squamous Epith Cells (0-5) /hpf Urine Bacteria (FEW) /hpf Urine Mucus (FEW) /hpf Blood Type O NEGATIVE Gel Antibody Screen Negative 05/30/19 05/30/19 05/30/19 Range/Units 10:20 10:20 10:20 WBC (3.98-10.04) K/mm3 RBC (3.98-5.22) M/mm3 Hgb (11.2-15.7) gm/dl Hct (34.1-44.9) % MCV (79.4-94.8) fl MCH (25.6-32.2) pg MCHC (32.2-35.5) g/dl RDW Std Deviation (36.4-46.3) fL Plt Count (182-369) K/mm3 MPV (9.4-12.3) fl Neut % (Auto) (34.0-71.1) % Lymph % (Auto) (19.3-51.7) % Gray % (Auto) (4.7-12.5) % Eos % (Auto) (0.7-5.8) Baso % (Auto) (0.1-1.2) % Neut # (Auto) (1.56-6.13) K/mm3 Lymph # (Auto) (1.18-3.74) K/mm3 Gray # (Auto) (0.24-0.36) K/mm3 Eos # (Auto) (0.04-0.36) K/mm3 Baso # (Auto) (0.01-0.08) K/mm3 ESR (0-20) mm/hr PT (9.7-12.0) SECONDS INR APTT (22-31) SECONDS Sodium 137 (136-145) mEq/L Potassium 3.5 (3.5-5.1) mEq/L Chloride 103 (98-107) mEq/L Carbon Dioxide 21 (21-32) mEq/L Anion Gap 16.5 H (5-15) BUN 20 H (7-18) mg/dL Creatinine 1.0 (0.55-1.02) mg/dL Est Cr Clr Drug Dosing TNP Estimated GFR (MDRD) 52 (>60) mL/min BUN/Creatinine Ratio 20.0 H (14-18) Glucose 144 H (83-115) mg/dL Calcium 9.1 (8.5-10.1) mg/dL Magnesium 1.7 L (1.8-2.4) mg/dl Total Bilirubin 0.7 (0.2-1.0) mg/dL AST 22 (15-37) U/L ALT 15 (14-59) U/L Alkaline Phosphatase 105 (46-116) U/L Creatine Kinase 247 H (26-192) U/L CK-MB (CK-2) 2.0 (0-3.6) ng/ml Troponin I 0.077 H* (0.00-0.056) ng/mL C-Reactive Protein 1.9 H* (<1.0) mg/dL NT-Pro-B Natriuret Pep 2796 H (0-450) pg/mL Total Protein 7.3 (6.4-8.2) g/dl Albumin 3.3 L (3.4-5.0) g/dl Globulin 4.0 gm/dL Albumin/Globulin Ratio 0.8 L (1-2) Urine Color (Yellow) Urine Appearance (Clear) Urine pH (5.0-8.0) Ur Specific [place] (1.005-1.030) Urine Protein (Negative) Urine Glucose (UA) (Negative) Urine Ketones (Negative) Urine Occult Blood (Negative) Urine Nitrite (Negative) Urine Bilirubin (Negative) Urine Urobilinogen (0.2-1.0) Ur Leukocyte Esterase (Negative) Urine RBC (0-5) /hpf Urine WBC (0-5) /hpf Ur Squamous Epith Cells (0-5) /hpf Urine Bacteria (FEW) /hpf Urine Mucus (FEW) /hpf Blood Type Gel Antibody Screen 05/30/19 05/30/19 Range/Units 10:47 11:23 WBC (3.98-10.04) K/mm3 RBC (3.98-5.22) M/mm3 Hgb (11.2-15.7) gm/dl Hct (34.1-44.9) % MCV (79.4-94.8) fl MCH (25.6-32.2) pg MCHC (32.2-35.5) g/dl RDW Std Deviation (36.4-46.3) fL Plt Count (182-369) K/mm3 MPV (9.4-12.3) fl Neut % (Auto) (34.0-71.1) % Lymph % (Auto) (19.3-51.7) % Gray % (Auto) (4.7-12.5) % Eos % (Auto) (0.7-5.8) Baso % (Auto) (0.1-1.2) % Neut # (Auto) (1.56-6.13) K/mm3 Lymph # (Auto) (1.18-3.74) K/mm3 Gray # (Auto) (0.24-0.36) K/mm3 Eos # (Auto) (0.04-0.36) K/mm3 Baso # (Auto) (0.01-0.08) K/mm3 ESR (0-20) mm/hr PT 11.8 (9.7-12.0) SECONDS INR 1.09 APTT 30 D (22-31) SECONDS Sodium (136-145) mEq/L Potassium (3.5-5.1) mEq/L Chloride (98-107) mEq/L Carbon Dioxide (21-32) mEq/L Anion Gap (5-15) BUN (7-18) mg/dL Creatinine (0.55-1.02) mg/dL Est Cr Clr Drug Dosing Estimated GFR (MDRD) (>60) mL/min BUN/Creatinine Ratio (14-18) Glucose (83-115) mg/dL Calcium (8.5-10.1) mg/dL Magnesium (1.8-2.4) mg/dl Total Bilirubin (0.2-1.0) mg/dL AST (15-37) U/L ALT (14-59) U/L Alkaline Phosphatase (46-116) U/L Creatine Kinase (26-192) U/L CK-MB (CK-2) (0-3.6) ng/ml Troponin I (0.00-0.056) ng/mL C-Reactive Protein (<1.0) mg/dL NT-Pro-B Natriuret Pep (0-450) pg/mL Total Protein (6.4-8.2) g/dl Albumin (3.4-5.0) g/dl Globulin gm/dL Albumin/Globulin Ratio (1-2) Urine Color Yellow (Yellow) Urine Appearance Clear (Clear) Urine pH 6.0 (5.0-8.0) Ur Specific [place] 1.025 (1.005-1.030) Urine Protein Negative (Negative) Urine Glucose (UA) Negative (Negative) Urine Ketones Negative (Negative) Urine Occult Blood Negative (Negative) Urine Nitrite Negative (Negative) Urine Bilirubin Negative (Negative) Urine Urobilinogen 0.2 (0.2-1.0) Ur Leukocyte Esterase Negative (Negative) Urine RBC 0-5 (0-5) /hpf Urine WBC 0-5 (0-5) /hpf Ur Squamous Epith Cells 0-5 (0-5) /hpf Urine Bacteria Few (FEW) /hpf Urine Mucus Few (FEW) /hpf Blood Type Gel Antibody Screen Meds: Medications Discontinued Medications Generic Name Dose Route Start Last Admin Trade Name Freq PRN Reason Stop Dose Admin Dextrose/Sodium Chloride 1,000 mls @ 150 mls/hr 05/30/19 10:00 05/30/19 11:11 Dextrose 5%-Normal Saline IV 150 mls/hr ASDIRECTED [place] Administration - Radiology Interpretation Free Text/Narrative:: 89-year-old female presents to the ED per ambulance from [place]. She apparently fell at [place] last night timeframe is not clear. Patient cannot relate recollect falling and has loss of short-term memory and is confused. She denies hitting her head but again this is to be taken with a grain of salt. There is no outward signs of any head or neck or facial trauma. She is on Plavix because of coronary stents. We identified that there is a new bruise on the volar aspect of her left distal forearm. No upper extremity injuries appreciated. She has pain and some slight swelling and bruising in her right flank area posterior axillary line and slightly medial to this over the ribs T12 and T11. No true pain over the lumbar spine. Pain posterior lateral right hip with slight swelling and bruising appreciated. However is able to flex the hip and terminally and externally rotate the hip without her having significant pain. She therefore may just have a contusion to the right buttock and hip musculature. The leg is not shortened or foot laterally deviated. She will have CT of her thoracic spine and lumbar spine. She will have x-rays of her pelvis and right femur done. I did not CT her head at this time. Routine labs to be done. IV will be D5 normal saline at 150 mils per hour. Blood sugar was 73 - Re-Assessments/Exams Free Text/Narrative Re-Assessment/Exam: 05/30/19 11:00 T of the lumbar spine reveals diffuse degenerative change. There is mild spinal listhesis at L4-L5 level due to degenerative apophyseal change. Scattered anterior endplate osteophytes are seen. Vacuum disc phenomena are seen within the L3 to-L4 vertebra and L5-S1 discs. Vacuum disc phenomena is also noted within the SI joints. There is a presacral cystic area seen within the pelvis presumably due to a cyst peers. It measures 5.5 cm and should be followed up with ultrasound. It presumably represents an adnexal cyst. No acute fractures are identified within the lumbar spine. CT thoracic spine reveals mild vacuum disc phenomena within to mid thoracic vertebra. Scattered anterior endplate osteophytes are seen. Vertebral body heights are preserved no fractures identified within the thoracic spine. There are nondisplaced rib fractures noted within the right posterior 12th and 11th ribs which correlate with clinical examination. X-ray of the right femur does not show any obvious fractures marked degenerative change appreciated at the knee. The bones are extremely osteopenic. I cannot be sure that there is a not a slight compression fracture in the head of the right femur. Therefore going to have her hip CTs and she still cannot weight-bear. X-ray of the pelvis show osteopenia but no obvious fractures. 05/30/19 11:36 Labs reveal a normal white count at 7.67. Auto differential shows 78% neutrophils hemoglobin is 16.1 with hematocrit of 47.8 suggesting mild hemoconcentration. Platelet count 236,000. PT is 11.8 with an INR of 1.099 mildly auto anticoagulated. PTT is 30. Magnesium slightly low at 1.7 total CPK is slightly elevated at 247. Is up to 192. CK-MB fraction is 2.0 troponin I slightly elevated at 0.077. C-reactive protein is 1.9B ADMINISTRATIVE ASSISTANT OFFICE MANAGER is 2796. Chest x-ray done portably reveals mild to moderate cardiomegaly. The upper mediastinum is normal and lungs are clear with no parenchymal changes. Bony structures are grossly intact. No pneumothorax is seen. Noted lower right rib fractures are not appreciated on this chest x-ray which is not unexpected. 05/30/19 11:48 CT of the left femur reveals degenerative arthritic change but I could not identify any fracture within the femoral neck that could be hidden from osteopenia. I will await the radiologist report in this regard but it does not appear that she has fractured her hip. 05/30/19 12:15 Over read read of the CT of the right hip has been carried out by radiologist and he concurs that there is no fracture within the osteoporotic right hip. Therefore other than her fractured ribs at 11 and 12 she has suffered no other injuries. She will be discharged back to [place] as she has help in attendance there. She will likely need wheelchair assistance for the better part of a week until the bruising of her right hip heals. Suggest Tylenol 650 mg every 4-6 hours necessary for pain relief in her ribs. Departure - Departure Time of Disposition: 12:16 Disposition: Home, Self-Care 01 Condition: Fair Clinical Impression: Fall as cause of accidental injury at home as place of occurrence Qualifiers: Encounter type: initial encounter Qualified Code(s): W19.XXXA - Unspecified fall, initial encounter Closed rib fracture Qualifiers: Encounter type: initial encounter Rib fracture type: multiple ribs Laterality: right Qualified Code(s): S22.41XA - Multiple fractures of ribs, right side, initial encounter for closed fracture Contusion of right hip and thigh Qualifiers: Encounter type: initial encounter Qualified Code(s): S70.01XA - Contusion of right hip, initial encounter - Discharge Information *PRESCRIPTION DRUG MONITORING PROGRAM REVIEWED*: Not Applicable *COPY OF PRESCRIPTION DRUG MONITORING REPORT IN PATIENT BHAVIN: Not Applicable Instructions: Contusion, [id number] Referrals: PCP,None [Ordering Only Provider] - Forms: ED Department Discharge Additional Instructions: Evaluation in the emergency room today guards to injury sustained from a fall at home last evening. Suffered blunt trauma to the right hip or contusion. X- rays of the right hip as well as CT of the right hip and pelvis do not reveal any broken bones. There is bruising and swelling of the posterior lateral buttock and hip area. She will will need help to walk suggest a wheelchair for the next week and then may try a walker for another week or 2 to make sure she does not fall again. T of the thoracic spine reveals degenerative changes but no fractures in the thoracic spine or lumbar spine. She does however have 2 undisplaced fractures of the right lower 11th and 12th ribs. These ribs are floating ribs and move with movement but not so much with breathing. They have to heal on their own. Treatment is time to heal. Suggest Tylenol 650 mg every 6 hours as needed for pain relief. Follow-up with her personal care physician in 8 to 10 days time to make sure that she does not develop any pneumonia. His encouragement to take 10 deep breaths per hour. Sepsis Event Note - Evaluation Sepsis Screening Result: No Definite Risk - Focused Exam Vital Signs: Vital Signs Temp Pulse Resp BP Pulse Ox 05/30/19 09:48 36.2 C 70 16 106/67 97 Date Exam was Performed: 05/30/19 Time Exam was Performed: 15:28 - My Orders Last 24 Hours: My Active Orders 05/30/19 09:58 EKG Documentation Completion [RC] STAT 05/30/19 11:11 PATIENT RETYPE [BBK] Routine - Assessment/Plan Last 24 Hours: My Active Orders 05/30/19 09:58 EKG Documentation Completion [RC] STAT 05/30/19 11:11 PATIENT RETYPE [BBK] Routine
--- NOTE | 2019-05-30 10:37 | CT ---
CT thoracic spine Technique: Multiple axial sections through the thoracic spine were obtained. Reconstructed coronal and sagittal images were obtained. Findings: Mild vacuum disc phenomena is seen within 2 mid thoracic levels. Scattered anterior endplate osteophytes are seen. Vertebral body heights are preserved. No fracture is identified within the thoracic spine. Nondisplaced rib fracture is noted within the right posterior 12th rib. Mildly displaced rib fracture is seen within the posterior right 11th rib. No additional rib fracture is seen on this exam. Impression: 1. Two right posterior rib fractures as noted above. 2. Degenerative change is seen. 3. No other acute finding is appreciated. Diagnostic code #3 This report was dictated in MDT
--- NOTE | 2019-05-30 10:37 | CT ---
CT lumbar spine Technique: Multiple axial sections were obtained through the lumbar spine. Reconstructed sagittal and coronal images were obtained. Comparison: No prior lumbar spine imaging is available. Findings: Mild spondylolisthesis is noted at L4-L5 due to degenerative apophyseal change. Scattered anterior endplate osteophytes are seen. Vacuum disc phenomena is seen within the L3-L4 and L5-S1 discs. Vacuum disc phenomenon is also noted within the sacroiliac joints. Presacral cystic area is seen within the pelvis. This finding measures 5.5 cm. Finding presumably represents an adnexal cyst. No acute fracture is appreciated. Impression: 1. Degenerative change as noted above. 2. Presacral cystic abnormality measuring 5.5 cm. As mentioned above, this presumably represents an adnexal cyst. Pelvic ultrasound recommended which can be performed non-emergently. 3. No acute fracture is seen within the lumbar spine. Diagnostic code #9 This report was dictated in MDT
--- NOTE | 2019-05-30 11:19 | CR ---
Right femur: AP and lateral views of the right femur were obtained. Comparison: No prior femur exam. Joint space narrowing is noted within the right hip. Mild joint space narrowing is noted within the medial knee. Slight chondrocalcinosis is noted within the menisci of the knee. Bony structures are osteopenic. Mild vascular calcification is noted. No acute abnormality is appreciated. Impression: 1. Degenerative change, osteopenia, and vascular calcification. 2. Nothing acute is appreciated on two-view right femur exam. Diagnostic code #2 This report was dictated in MDT
--- NOTE | 2019-05-30 11:19 | CR ---
Chest: AP view of the chest was obtained. Comparison: Prior chest x-ray of 11/29/17. Heart is slightly enlarged. Upper mediastinum is normal. Lungs are clear no acute parenchymal change. Bony structures are grossly intact. No pneumothorax is seen. Previously noted lower right rib fractures are not appreciated on this chest x-ray which is not unexpected. Impression: 1. Nothing acute is identified on AP chest x-ray. Diagnostic code #2 This report was dictated in MDT
--- NOTE | 2019-05-30 11:19 | CR ---
Pelvis: AP view of the pelvis was obtained. Comparison: No prior pelvis exam. Joint space narrowing is seen within both hips. Sacroiliac joints appear within normal limits. Bony structures are osteopenic. Mild vascular calcification is noted. No acute fracture or other abnormality is identified. Impression: 1. Findings as noted above. 2. Nothing acute is appreciated on AP pelvis study. Diagnostic code #2 This report was dictated in MDT
--- NOTE | 2019-05-30 12:21 | CT ---
CT right hip Technique: Multiple axial sections through the right hip were obtained. Comparison: Previous pelvis exam performed earlier on the same day (10:24 AM). Findings: Joint space narrowing is noted. Several small degenerative cysts are seen within the superior acetabulum. Osteophytes are noted off the femoral head. Vacuum phenomena is noted within the right sacroiliac joint. Small bone island noted within the right superior acetabular region. No fracture is seen within the right hip or within the visualized portions of the pelvis. Impression: 1. Degenerative change within the right hip. 2. No fracture is appreciated within the right hip. Diagnostic code #2 This report was dictated in MDT MTDD
== END 2019-05-30 14:06 | disposition home or self-care (01) ==
LOC: JD.ED 09:40
DX: S22.41XA Multiple fractures of ribs, right side, initial encounter for closed fracture (principal); S70.01XA Contusion of right hip, initial encounter; S70.11XA Contusion of right thigh, initial encounter; S50.12XA Contusion of left forearm, initial encounter; I10 Essential (primary) hypertension; I25.10 Atherosclerotic heart disease of native coronary artery without angina pectoris; I48.91 Unspecified atrial fibrillation; E78.00 Pure hypercholesterolemia, unspecified; I25.2 Old myocardial infarction; K21.9 Gastro-esophageal reflux disease without esophagitis; E03.9 Hypothyroidism, unspecified; Z79.899 Other long term (current) drug therapy; Z79.82 Long term (current) use of aspirin; Z79.02 Long term (current) use of antithrombotics/antiplatelets; W19.XXXA Unspecified fall, initial encounter
CPT/HCPCS: 36415; 71045; 72128; 72131; 72170; 73552; 73700; 80053; 81001; 82550; 82553; 83735; 83880; 84484; 85025; 85610; 85652; 85730; 86140; 86850; 86900; 86901; 93005; 96360; 96361; 99285; J7042; 93010; 99283

== ENCOUNTER 2019-06-06 09:52 | Emergency (ER) | payer MEDICARE, BC ==
[2019-06-06 10:03] VITALS: BP 104/64; PULSE 68
[2019-06-06] MEDS ORDERED: Sodium Chloride 0.9% 1,000 ML IV ONE (10:21)
--- NOTE | 2019-06-06 11:04 | CT ---
Head CT Technique: Multiple axial sections through the brain were obtained. Intravenous contrast was not utilized. Comparison: Prior head CT study of 05/27/19. Findings: Ventricles along with basal cisterns and sulci over the convexities are moderately prominent. Diminished density is noted within the basal ganglia, periventricular white matter and subcortical white matter which is most likely due to small vessel ischemic demyelination change. No other abnormal parenchymal densities are seen. No evidence of intracranial hemorrhage. No midline shift or mass-effect is seen. Bone window settings were reviewed. Visualized paranasal sinuses show nothing acute. No acute calvarial abnormality is appreciated. Impression: 1. Senescent change as described above. 2. Nothing acute is appreciated on noncontrast head CT exam. 3. No significant change is appreciated from previous head CT exam. Diagnostic code #2 This report was dictated in MDT
--- NOTE | 2019-06-06 11:39 | EDM.PDOC ---
ED HPI GENERAL MEDICAL PROBLEM - General Chief Complaint: Syncope Stated Complaint: [facility] Time Seen by Provider: 06/06/19 10:05 Source of Information: Reports: Patient, EMS, Family, Alf Records History Limitations: Reports: No Limitations - History of Present Illness INITIAL COMMENTS - FREE TEXT/NARRATIVE: The patient presents from [facility] for syncope. She went back to breakfast and was sitting by the nurses desk and she went unresponsive and she was drooling. Her BP was low in the 60s. EMS arrived and they started an IV and gave some fluids. She came around in the ambulance. She is alert and talking when I go in the room. She has no complaints. She has no fever, chills, cough , headache, neck pain, chest pain, shortness of breath, abdominal pain, nausea or vomiting. This has happened before to the patient. Onset: Sudden Duration: Minutes: Severity: Moderate Improves with: Reports: None Worsens with: Reports: None Associated Symptoms: Reports: No Other Symptoms - Related Data Allergies Allergy/AdvReac Type Severity Reaction Status Date / Time No Known Allergies Allergy Verified 06/06/19 10:03 Home Meds: Home Meds Aspirin 81 mg PO DAILY #100 tab.chew 07/05/17 [Rx] Clopidogrel [Plavix] 75 mg PO DAILY #30 tablet 07/05/17 [Rx] Memantine [Namenda] 10 mg PO BID 06/12/18 [History] Omeprazole 20 mg PO DAILY 06/12/18 [History] Sertraline [Zoloft] 50 mg PO BEDTIME 06/12/18 [History] Levothyroxine [Synthroid] 88 mcg PO ACBREAKFAST #30 tab 10/01/18 [Rx] Lisinopril 10 mg PO DAILY #30 tablet 10/01/18 [Rx] Calcium Carbonate [Antacid] 2 cap PO ASDIRECTED 05/27/19 [History] Cyanocobalamin (Vitamin B12) [Vitamin B12] 100 mcg PO DAILY 05/27/19 [History] Docusate Sodium [DOK] 1 cap PO ASDIRECTED 05/27/19 [History] Meclizine [Antivert] 25 mg PO Q6H PRN #30 tab 05/27/19 [Rx] carvediloL [Coreg] 6.25 mg PO BID #60 tab 03/16/20 [Rx] Past Medical History HEENT History: Reports: Hard of Hearing, Impaired Vision Other HEENT History: wears eyeglasses, has bilateral hearing aides Cardiovascular History: Reports: Afib, CAD, High Cholesterol, Hypertension, [place] Respiratory History: Reports: None Gastrointestinal History: Reports: GERD, Hemorrhoids Genitourinary History: Reports: Other (See Below) Other Genitourinary History: hx of leaking urine--resolved 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: Musculoskeletal History: Reports: None Neurological History: Reports: Alzheimers Disease, Vertigo, Other (See Below) Other Neuro History: memory deficits Psychiatric History: Reports: None Other Psychiatric History: forgetful Endocrine/Metabolic History: Reports: Hypothyroidism Hematologic History: Reports: Anemia Immunologic History: Reports: None Oncologic (Cancer) History: Reports: None Dermatologic History: Reports: None - Infectious Disease History Infectious Disease History: Reports: Chicken Pox, Measles, Mumps, Rubella - Past Surgical History Head Surgeries/Procedures: Reports: None HEENT Surgical History: Reports: Cataract Surgery Cardiovascular Surgical History: Reports: None GI Surgical History: Reports: None Social & Family History - Family History Family Medical History: Noncontributory Endocrine/Metabolic: Reports: Diabetes, type II - Tobacco Use Smoking Status *Q: Never Smoker - Caffeine Use Caffeine Use: Reports: Coffee, Tea Other Caffeine Use: pot a day - Recreational Drug Use Recreational Drug Use: No - Living Situation & Occupation Living situation: Reports: , Alone Occupation: Retired ED ROS GENERAL - Review of Systems Review Of Systems: See Below Constitutional: Reports: No Symptoms HEENT: Reports: No Symptoms Respiratory: Reports: No Symptoms Cardiovascular: Reports: No Symptoms Endocrine: Reports: No Symptoms GI/Abdominal: Reports: No Symptoms : Reports: No Symptoms Musculoskeletal: Reports: No Symptoms Skin: Reports: No Symptoms Neurological: Reports: No Symptoms - Physical Exam Exam: See Below Exam Limited By: No Limitations General Appearance: Alert, No Apparent Distress Ears: Normal External Exam Nose: Normal Inspection Head Exam: Atraumatic, Normocephalic Neck: Normal Inspection Respiratory/Chest: No Respiratory Distress, Lungs Clear, Normal Breath Sounds Cardiovascular: Regular Rate, Rhythm, No Edema, No Murmur GI/Abdominal: Soft, Non-Tender, No Organomegaly, No Mass Neuro Exam (Abbreviated): Alert, Oriented, No Motor/Sensory Deficits EKG INTERPRETATION EKG Date: 06/06/19 Time: 10:22 Rhythm: NSR Rate (Beats/Min): 62 [place]: Normal P-Wave: Present QRS: Normal ST-T: Normal QT: Normal EKG Interpretation Comments: Multiple PVCs Course - Vital Signs Last Recorded V/S: Last Vital Signs Temp 98.5 F 06/06/19 10:00 Pulse 68 06/06/19 10:00 Resp 16 06/06/19 10:00 BP 104/64 06/06/19 10:00 Pulse Ox 93 L 06/06/19 10:00 - Orders/Labs/Meds Orders: Active Orders 24 hr Category Date Time Status EKG Documentation Completion [RC] ASDIRECTED Care 06/06/19 10:05 Active Chest 1V Frontal [CR] Stat Exams 06/06/19 09:59 Taken EKG 12 Lead [EK] Stat Ther 06/06/19 10:05 Ordered Labs: Laboratory Tests 06/06/19 06/06/19 06/06/19 Range/Units 10:00 10:18 10:18 WBC 5.96 (3.98-10.04) K/mm3 RBC 4.54 (3.98-5.22) M/mm3 Hgb 13.9 D (11.2-15.7) gm/dl Hct 41.3 (34.1-44.9) % MCV 91.0 (79.4-94.8) fl MCH 30.6 (25.6-32.2) pg MCHC 33.7 (32.2-35.5) g/dl RDW Std Deviation 47.4 H (36.4-46.3) fL Plt Count 220 (182-369) K/mm3 MPV 9.5 (9.4-12.3) fl Neut % (Auto) 64.6 (34.0-71.1) % Lymph % (Auto) 22.7 (19.3-51.7) % [place] % (Auto) 9.9 (4.7-12.5) % Eos % (Auto) 1.8 (0.7-5.8) Baso % (Auto) 0.7 (0.1-1.2) % Neut # (Auto) 3.85 (1.56-6.13) K/mm3 Lymph # (Auto) 1.35 (1.18-3.74) K/mm3 [place] # (Auto) 0.59 H (0.24-0.36) K/mm3 Eos # (Auto) 0.11 (0.04-0.36) K/mm3 Baso # (Auto) 0.04 (0.01-0.08) K/mm3 Sodium 139 (136-145) mEq/L Potassium 3.3 L (3.5-5.1) mEq/L Chloride 103 (98-107) mEq/L Carbon Dioxide 24 (21-32) mEq/L Anion Gap 15.3 H (5-15) BUN 27 H (7-18) mg/dL Creatinine 1.4 H (0.55-1.02) mg/dL Est Cr Clr Drug Dosing 24.99 mL/min Estimated GFR (MDRD) 35 (>60) mL/min BUN/Creatinine Ratio 19.3 H (14-18) Glucose 119 H (83-115) mg/dL Calcium 8.8 (8.5-10.1) mg/dL Total Bilirubin 0.5 (0.2-1.0) mg/dL AST 18 (15-37) U/L ALT 16 (14-59) U/L Alkaline Phosphatase 89 (46-116) U/L Troponin I (0.00-0.056) ng/mL Total Protein 6.4 (6.4-8.2) g/dl Albumin 2.8 L (3.4-5.0) g/dl Globulin 3.6 gm/dL Albumin/Globulin Ratio 0.8 L (1-2) Urine Color Yellow (Yellow) Urine Appearance Clear (Clear) Urine pH 6.0 (5.0-8.0) Ur Specific [place] 1.025 (1.005-1.030) Urine Protein Negative (Negative) Urine Glucose (UA) Negative (Negative) Urine Ketones Negative (Negative) Urine Occult Blood Negative (Negative) Urine Nitrite Negative (Negative) Urine Bilirubin Negative (Negative) Urine Urobilinogen 0.2 (0.2-1.0) Ur Leukocyte Esterase Negative (Negative) Urine RBC Not seen (0-5) /hpf Urine WBC Not seen (0-5) /hpf Ur Squamous Epith Cells 0-5 (0-5) /hpf Urine Bacteria Not seen (FEW) /hpf Urine Mucus Not seen (FEW) /hpf 03/ Range/Units 10:18 WBC (3.98-10.04) K/mm3 RBC (3.98-5.22) M/mm3 Hgb (11.2-15.7) gm/dl Hct (34.1-44.9) % MCV (79.4-94.8) fl MCH (25.6-32.2) pg MCHC (32.2-35.5) g/dl RDW Std Deviation (36.4-46.3) fL Plt Count (182-369) K/mm3 MPV (9.4-12.3) fl Neut % (Auto) (34.0-71.1) % Lymph % (Auto) (19.3-51.7) % [place] % (Auto) (4.7-12.5) % Eos % (Auto) (0.7-5.8) Baso % (Auto) (0.1-1.2) % Neut # (Auto) (1.56-6.13) K/mm3 Lymph # (Auto) (1.18-3.74) K/mm3 [place] # (Auto) (0.24-0.36) K/mm3 Eos # (Auto) (0.04-0.36) K/mm3 Baso # (Auto) (0.01-0.08) K/mm3 Sodium (136-145) mEq/L Potassium (3.5-5.1) mEq/L Chloride (98-107) mEq/L Carbon Dioxide (21-32) mEq/L Anion Gap (5-15) BUN (7-18) mg/dL Creatinine (0.55-1.02) mg/dL Est Cr Clr Drug Dosing mL/min Estimated GFR (MDRD) (>60) mL/min BUN/Creatinine Ratio (14-18) Glucose (83-115) mg/dL Calcium (8.5-10.1) mg/dL Total Bilirubin (0.2-1.0) mg/dL AST (15-37) U/L ALT (14-59) U/L Alkaline Phosphatase (46-116) U/L Troponin I 0.080 H* (0.00-0.056) ng/mL Total Protein (6.4-8.2) g/dl Albumin (3.4-5.0) g/dl Globulin gm/dL Albumin/Globulin Ratio (1-2) Urine Color (Yellow) Urine Appearance (Clear) Urine pH (5.0-8.0) Ur Specific [place] (1.005-1.030) Urine Protein (Negative) Urine Glucose (UA) (Negative) Urine Ketones (Negative) Urine Occult Blood (Negative) Urine Nitrite (Negative) Urine Bilirubin (Negative) Urine Urobilinogen (0.2-1.0) Ur Leukocyte Esterase (Negative) Urine RBC (0-5) /hpf Urine WBC (0-5) /hpf Ur Squamous Epith Cells (0-5) /hpf Urine Bacteria (FEW) /hpf Urine Mucus (FEW) /hpf Meds: Medications Discontinued Medications Generic Name Dose Route Start Last Admin Trade Name Freq PRN Reason Stop Dose Admin Sodium Chloride 1,000 mls @ 1,000 mls/hr 06/06/19 10:21 06/06/19 10:26 Normal Saline IV 06/06/19 11:20 1,000 mls/hr ONETIME ONE Administration - Re-Assessments/Exams Free Text/Narrative Re-Assessment/Exam: 06/06/19 11:41 I ordered an IV NS 1L bolus, EKG, CT of her head and labs. Her EKG shows a NSR with no acute changes. Her CT shows nothing acute. Her CBC looks good. Her K is low at 3.3. Her anion gap is elevated at 15.3. Her creatinine is elevated at 1.4. Her troponin is elevated at 0.08. Every time she comes in her troponin is elevated. Her UA shows no UTI. I feel she is safe to go back. Departure - Departure Time of Disposition: 11:50 Disposition: DC/Tfer to Intermediate Care 63 Condition: Good Clinical Impression: Elevated troponin Syncope Qualifiers: Syncope type: vasovagal syncope Qualified Code(s): R55 - Syncope and collapse - Discharge Information *PRESCRIPTION DRUG MONITORING PROGRAM REVIEWED*: Not Applicable *COPY OF PRESCRIPTION DRUG MONITORING REPORT IN PATIENT BHAVIN: Not Applicable Referrals: Patito Vargas MD [Primary Care Provider] - 1 Week Additional Instructions: Take your medication as prescribed. Follow up with your doctor. Please return if you are worse. Sepsis Event Note - Evaluation Sepsis Screening Result: No Definite Risk - Focused Exam Vital Signs: Vital Signs Temp Pulse Resp BP Pulse Ox 06/06/19 10:00 98.5 F 68 16 104/64 93 L Date Exam was Performed: 06/06/19 Time Exam was Performed: 11:33 - My Orders Last 24 Hours: My Active Orders 06/06/19 09:59 Chest 1V Frontal [CR] Stat 06/06/19 10:05 EKG Documentation Completion [RC] ASDIRECTED EKG 12 Lead [EK] Stat - Assessment/Plan Last 24 Hours: My Active Orders 06/06/19 09:59 Chest 1V Frontal [CR] Stat 06/06/19 10:05 EKG Documentation Completion [RC] ASDIRECTED EKG 12 Lead [EK] Stat
--- NOTE | 2019-06-06 12:24 | CR ---
Chest: Portable view of the chest was obtained. Comparison: Prior chest x-ray of 05/30/19. Heart is mildly enlarged. Lungs show no acute parenchymal change. Bony structures are osteopenic but grossly intact. Impression: 1. Stable cardiomegaly. 2. Nothing acute is appreciated. Diagnostic code #2 This report was dictated in MDT
== END 2019-06-06 12:19 ==
LOC: JD.ED 09:52
DX: R55 Syncope and collapse (principal); R79.89 Other specified abnormal findings of blood chemistry; I48.91 Unspecified atrial fibrillation; E78.00 Pure hypercholesterolemia, unspecified; I10 Essential (primary) hypertension; I25.2 Old myocardial infarction; K21.9 Gastro-esophageal reflux disease without esophagitis; G30.9 Alzheimer's disease, unspecified; I25.10 Atherosclerotic heart disease of native coronary artery without angina pectoris; F02.80 Dementia in other diseases classified elsewhere, unspecified severity, without behavioral disturbance, psychotic disturbance, mood disturbance, and anxiety; E03.9 Hypothyroidism, unspecified; Z79.899 Other long term (current) drug therapy; Z79.82 Long term (current) use of aspirin; Z79.02 Long term (current) use of antithrombotics/antiplatelets
CPT/HCPCS: 36415; 70450; 71045; 80053; 81001; 84484; 85025; 93005; 96360; 99285; J7030; 93010; 99283